=== PATIENT | male | born 1950 | race African-American/Black ===

== ENCOUNTER 2024-02-01 21:39 | Emergency (ER) | payer MEDICARE, SELFPAY ==
[2024-02-01 21:44] VITALS: BP 134/72; PULSE 81; RESP 15; TEMP 36.2; O2SAT 99
--- NOTE | 2024-02-01 22:48 | ED_ITS ---
HPI - General Adult General Chief complaint: Urogenital-Male Stated complaint: difficulty urinating Time Seen by Provider: 02/01/24 21:44 History of Present Illness HPI narrative: 73-year-old male presenting to the emergency department for evaluation for increased urinary frequency. Patient began having difficulty urinating on Saturday had follow-up with his primary care physician on and patient was started on Cipro. Patient states he took the doses on Saturday and Saturday b ut is still having frequent urinary urgency issues and patient states he is even having difficulty sleeping due to the symptoms. Related Data Home Medications ?Medication ?Instructions ?Recorded ?Confirmed ?Last Taken ?Type amlodipine 5 mg tablet (Norvasc) 5 mg PO DAILY 12/12/23 12/12/23 Unknown History aspirin 81 mg chewable tablet 81 mg PO DAILY 12/12/23 12/12/23 Unknown History ezetimibe 10 mg tablet (Zetia) 10 mg PO DAILY 12/12/23 12/12/23 Unknown History fluticasone propionate 50 1 spray intranasal DAILY 12/12/23 12/12/23 Unknown History mcg/actuation nasal spray,suspension (Flonase Allergy Relief) mecobalamin (vitamin B12) 5,000 mcg PO 12/12/23 12/12/23 Unknown History mcg disintegrating tablet metoprolol succinate 100 mg 100 mg PO BID 12/12/23 12/12/23 Unknown History tablet,extended release 24 hr (Toprol XL) multivitamin 1 tablet PO DAILY 12/12/23 12/12/23 Unknown History rosuvastatin 40 mg tablet (Crestor) 40 mg PO DAILY 12/12/23 12/12/23 Unknown History tamsulosin 0.4 mg capsule 0.4 mg PO BID 12/12/23 12/12/23 Unknown History Allergies Allergy/AdvReac Type Severity Reaction Status Date / Time No Known Allergies Allergy Unverified 12/12/23 08:56 Review of Systems Review of Systems: All systems reviewed & are unremarkable except as noted in HPI and below PMFSH Surgical History Surgical History (Updated 12/12/23 @ 09:09 by Isabel Houston CMA) Stented coronary artery Family History Family History (Updated 12/12/23 @ 09:10 by Isabel Houston CMA) Mother Heart disease Social History Social History (Updated 12/12/23 @ 09:11 by Isabel Houston [facility]) Smoking status: Former smoker Smoking end date: 02/11/07 Alcohol intake: current Substance use: never Substance use type: does not use Do You Feel Safe in your Home?: Yes Lack of Transportation: No Lack of Food: Never True Current Housing: I Have Housing Concerned About Future Housing: No Difficulty Paying Gas/Electric Bills: No Difficulty Paying for Meds: No Currently Unemployed: No Education: Trade/Vocational Certificate Difficulty w/ Childcare or Family Care: No Exam Narrative: APPEARANCE: Uncomfortable appearing HEAD: normocephalic, atraumatic. EYES: PERRLA/EOMI, conjunctivae clear. NOSE: Normal no drainage EARS:TMS clear with good light reflex. THROAT: Pharynx clear, no exudate. NECK: Supple. No adenopathy, no masses. RESPIRATORY: Airway patent, respirations nonlabored. Clear to auscultation bilaterally, no rales, rhonchi, wheezing. CARDIOVASCULAR: Regular rate and rhythm without murmurs rubs or gallops. ABDOMINAL: Soft, nontender, nondistended, normal bowel sounds MUSCULOSKELETAL: Moves all extremities. Strength/ROM intact, No edema, No calf tenderness. NEURO: Alert. Cranial nerves II through XII intact. Grossly intact SKIN: Warm, dry. Normal Color Course Vital Signs Vital signs: Vital Signs Temperature 97.1 F L 02/01/24 21:44 Pulse Rate 81 02/01/24 21:44 Respiratory Rate 15 02/01/24 21:44 Blood Pressure 134/72 02/01/24 21:44 Pulse Oximetry 99 02/01/24 21:44 Oxygen Delivery Room Air 02/01/24 21:44 Temperature 97.1 F L 02/01/24 21:44 Pulse Rate 81 02/01/24 21:44 Respiratory Rate 15 02/01/24 21:44 Blood Pressure 134/72 02/01/24 21:44 Pulse Oximetry 99 02/01/24 21:44 Oxygen Delivery Room Air 02/01/24 21:44 Medical Decision Making Vital Signs Vital Signs: Vital Signs Temperature 97.1 F L 02/01/24 21:44 Pulse Rate 81 02/01/24 21:44 Respiratory Rate 15 02/01/24 21:44 Blood Pressure 134/72 02/01/24 21:44 Pulse Oximetry 99 02/01/24 21:44 Oxygen Delivery Room Air 02/01/24 21:44 Temperature 97.1 F L 02/01/24 21:44 Pulse Rate 81 02/01/24 21:44 Respiratory Rate 15 02/01/24 21:44 Blood Pressure 134/72 02/01/24 21:44 Pulse Oximetry 99 02/01/24 21:44 Oxygen Delivery Room Air 02/01/24 21:44 Discharge Plan Discharge Clinical Impression: Acute urinary retention Patient Disposition: Home, Self-Care Condition: Stable Instructions: Antibiotic Form, Urinary Tract Infection in Men (ED), Conde Catheter Placement and Care (ED) Additional Instructions: For catheter care as directed. Continue to take your Cipro as directed. Continue to take your tamsulosin as directed. Have close follow-up with Urology to have the Conde catheter removed. If you have any worsening symptoms then please call or return to the emergency department. Patient Language: Khmer Prescriptions: No Action ezetimibe [Zetia] 10 mg tablet 10 mg PO DAILY rosuvastatin [Crestor] 40 mg tablet 40 mg PO DAILY metoprolol succinate [Toprol XL] 100 mg tablet extended release 24 hr 100 mg PO BID amlodipine [Norvasc] 5 mg tablet 5 mg PO DAILY aspirin 81 mg tablet,chewable 81 mg PO DAILY mecobalamin (vitamin B12) 5,000 mcg tablet,disintegrating PO fluticasone propionate [Flonase Allergy Relief] 50 mcg/actuation spray,suspension 1 spray intranasal DAILY Rx Instructions: administer into each nostril multivitamin Tablet 1 tablet PO DAILY tamsulosin 0.4 mg capsule 0.4 mg PO BID Follow-up/Referrals: UNKNOWN,DOCTOR [Primary Care Provider] -
[2024-02-01 23:47] LABS: Add Urine Microscopic? YES; Appearance Urine Clear (Clear); Bacteria Urine None Seen /hpf; Bilirubin Urine Negative (Negative); Blood Urine Negative (Negative); Color Urine Yellow (Yellow); Glucose Urine UA Negative (Negative); Ketones Urine Negative (Negative); Leukocyte Esterase Ur Trace LEU/UL (Negative); Nitrate Urine Negative (Negative); Non Pathogenic Casts 0-2; Protein Urine Negative (Negative); RBC Urine 0-2 /hpf (0-2); Specific Grav Ur 1.009 (1.001-1.035); Squamous Epithelial Cell Urine None Seen /hpf (Few)
[2024-02-02 00:27] VITALS: BP 134/72; PULSE 78; RESP 16; O2SAT 100
== END 2024-02-02 00:30 | disposition home or self-care (01) ==
PROVIDERS: Emergency Provider Emergency Medicine
DX: R33.9 Retention of urine, unspecified (principal); Z87.891 Personal history of nicotine dependence
CPT/HCPCS: 81001; 87086; 99283

== ENCOUNTER 2024-06-18 09:37 | Outpatient (CLI) | payer MEDICARE, SELFPAY ==
--- OUTSIDE RECORDS SUMMARY | 2024-06-18 09:54 | XMS_ITS | Encounter Summary ---
Author Organization [facility] Address 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 Gender Identity Not on file Sexual Orientation Not on file documented as of this encounter Plan of Treatment Upcoming Encounters Date Type Department Care Team (Late st Contact Info) Description 07/15/2024 9:45 AM CDT Office Visit [facility] Heart and Vascular At [facility] [address] [place] [address] Atif Stover MD [address] [place] [address] 06/15/2025 9:15 AM CDT Office Visit [facility] Hepatology [address] [place] [address] Al Ervin MD [address] [facility] [address] [address] [facility] [place] [address] documented as of this encounter Visit Diagnoses Not on filedocumented in this encounter Additional Health Concerns Infection Onset Date Last Indicated Resolved Time R/O COVID-19 12/24/2019 12/24/2019 12/26/2019 6:02 AM DYNAMITE PACKING MACHINE OPERATOR COVID-19 12/24/2019 12/24/2019 01/23/2020 1:16 AM DYNAMITE PACKING MACHINE OPERATOR documented as of this encounter Care Teams Labor Economist Relationship Specialty Start Date End Date Chandu Urbina MD PCP - General Family Practice 06/12/23 11/13/23 documented as of this encounter
--- OUTSIDE RECORDS SUMMARY | 2024-06-18 09:54 | XMS_ITS | Clinical Summary ---
Author Organization [facility] ital Address [address] [place] [address] Care Team Providers Care Pediatric Critical Care Nurse Name Role Phone Liam Rubin MD Primary Care Provider [phone] Allergies Active Allergy Reactions Criticality Noted Date Comments Venom-Honey Bee Anaphylaxis High 08/19/2017 Hymenoptera Allergenic Extract Anaphylaxis High 05/13 Medications metoprolol XL (TOPROL-XL) 50 mg 24 hr tabletIndicatio ns:Takes 1.5 of 50 mg daily Take 75 mg by mouth daily. Active clopidogrel (PLAVIX) 75 mg tablet Take 75 mg by mouth daily. Active rosuvastatin (CRESTOR) 40 mg tablet Take 40 mg by mouth daily. Active aspirin 81 mg tablet Take 81 mg by mouth daily. Active HYDROcodone-saul taminophen (NORCO) 7.5-325 mg per tabletIndicatio ns:Pain 1-2 tablets PO q4h PRN pain 60 tablet 8 Active Additional Information Patient not taking.Reported on 10/07/2017 Active Problems Problem Noted Date Diagnosed Date Olecranon bursitis of left elbow 09/09/2017 Tibial plateau fracture, lef t, closed, with delayed healing, subsequent encounter 08/12/2017 Closed Colles' fracture of left radius 8 Immunizations Immunization Administration Dates Next Due Pfizer SARS-CoV-2 Monovalent Vaccination (12+ Yrs) PURPLE 11/25/2020,04/25/2020,04/04/2020 Surgical History Surgery Date Site/Laterality Comments CORONARY STENT PLACEMENT CARDIAC CATHETERIZATION 02/11/2007 - 02/11/2008 Medical History Medical History Date Comments Coronary artery disease Arthritis Wrist fracture left Hyperlipidemia Family History Medical History Relation Name Comments No Known Problems Father Heart disease Mother Relation Name Status Comments Father Mother Social History Tobacco Use Types Packs/Day Years Used Date Smoking Tobacco: Former Smokeless Tobacco: Never Alcohol Use Standard Drinks/Week Comments Yes 0 (1 standard drink = 0.6 oz pur e alcohol) social Sex and Gender Information Value Date Recorded Sex Assigned at Not on file Legal Sex Male 8:37 PM CDT Gender Identity Not on file Sexual Orientation Not on file Occupation Industry Job Start Date Job End Date [employer] Not on file Not on file Not on file Obstetrics History Last Filed Vital Signs Vital Sign Reading Time Taken Comments Blood Pressure 125/72 08/26/2017 4:00 PM CDT Pulse 73 08/26/2017 4:00 PM CDT Temperature 36.5 C (97.7 F) 08/26/2017 3:05 PM CDT Respiratory Rate 12 08/26/2017 4:00 PM CDT Oxygen Saturation 98% 08/26/2017 4:00 PM CDT Inhaled Oxygen Concentration - - Weight 105.2 kg (232 lb) 12/02/2017 8:59 AM CDT Height 182.9 cm (6') 12/02/2017 8:59 AM CDT Body Mass Index 31.46 12/02/2017 8:59 AM CDT Plan of Treatment Health Maintenance Due Date Last Done Comments Colon Cancer Screening-Colonoscopy 1950 Depression Screening 1950 Fall Risk Assessment 1950 Hepatitis C Screening 1950 Prostate Cancer Screening-PSA 1950 DTaP/Tdap/Td Vaccine (1 - Tdap) 07/12/1962 Hepatitis B Screening 07/12/1969 Zoster Vaccine (1 of 2) 07/12/2001 Abdominal Aortic Aneurysm (A AA) Screen 07/12/2016 Well Visit 65+ 07/12/2016 Pneumococcal vaccine 65+ (2 of 2 - PCV) 12/01/2020 12/02/2019 Covid-19 Vaccine ( - season) 2023 11/25/2020, 04/25/2020, 04/04/2020 Influenza Vaccine (#1) 2023 11/26/2019, 2018 Medical Devices Implanted Type Area Electronic Coils Supervisor Device Identifier Shelf Expiration Date Model / Serial / Lot [employer] Orthoblast Ii Allograft Paste Syringe Graft 1cc Bone - [id number] - [id number] Implanted:Qty: 1 on 08/26/2017 by Ulysses Schuler MD at [facility] Left: Radius [employer] 05/09/2019 / [id number] / [id number] [employer] 1318-22-050 Dvr [id number] Crosslock Radius Left Distal Volar Standard Plate - [id number] Implanted:Qty: 1 on 08/26/2017 by Ulysses Schuler MD at [facility] Left: Radius [employer] 1318-22-050 / / [employer] [id number] Dvr 2.7mm 18mm Low Profile Nonlock Hand Cortical Screw Bone - [id number] Implanted:Qty: 2 on 08/26/2017 at [facility] Left: Radius [employer] [id number] / / [employer] 1312-27-120 Dvr 2.7mm 20mm Lock Spine Screw Bone Nonsterile - [id number] Implanted:Qty: 1 on 08/26/2017 by Ulysses Schuler MD at [facility] Left: Radius [employer] 1312-27-120 / / [employer] 1312-27-116 Dvr 2.7mm 16mm Lock Radius Distal Volar Square Screw Bone Sterile - [id number] Implanted:Qty: 1 on 08/26/2017 by Ulysses Schuler MD at [facility] Left: Radius [employer] 1312-27-116 / / Screw Lock [address] 2.7 X 26mm - [id number] Implanted:Qty: 2 on 08/26/2017 by Ulysses Schuler MD at [facility] Left: Radius [employer] 1312-27-126 / / [employer] 1312-272-16 2.7mm 16mm Nonlock Low Profile Radius Distal Screw Bone - [id number] Implanted:Qty: 1 on 08/26/2017 by Ulysses Schuler MD at [facility] Left: Radius [employer] 1312-272-16 / / [employer] [id number] [place] 1.6mm Wire Fixation Stainless Steel Nonsterile - [id number] Implanted:Qty: 2 on 08/26/2017 at [facility] Left: Radius [employer] [id number] / / Insurance [facility] MDCR HMO REF Care Teams Pediatric Critical Care Nurse Relationship Specialty Start Date End Date Liam Rubin MD [address] [facility] [address] [place] [phone] PCP - General 08/10/17
--- OUTSIDE RECORDS SUMMARY | 2024-06-18 09:54 | XMS_ITS | Encounter Summary ---
Author Organization [facility] Address [address] [place] [address] Care Team Providers Care Entry Level Lab Technician Name Role Phone Chandu Urbina MD Primary Care Provider Unavailab le Encounter Details Date Type Department Care Team (Late st Contact Info) Description 01/12/1998 Outpatient Historical [facility] Primary Care - [facility] [address] [place] [address] Aris Tobias MD [address] [place] [address] Social History Tobacco Use Types Packs/Day Years Used Date Smoking Tobacco: Never Assessed Sex and Gender Information Value Date Recorded Sex Assigned at Not on file 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 Gender Identity Not on file Sexual Orientation Not on file documented as of this encounter Plan of Treatment Upcoming Encounters Date Type Department Care Team (Late st Contact Info) Description 07/15/2024 9:45 AM CDT Office Visit [facility] Heart and Vascular At [facility] [address] [facility] [address] [place] [address] Atif Stover MD [address] [facility] [facility] [address] [place] [address] 06/15/2025 9:15 AM CDT Office Visit [facility] Hepatology [address] [place] [address] Al Ervin MD [address] [facility] [place] [address] documented as of this encounter Visit Diagnoses Not on filedocumented in this encounter Additional Health Concerns Infection Onset Date Last Indicated Resolved Time R/O COVID-19 12/24/2019 12/24/2019 12/26/2019 6:02 AM SHIP PURSER COVID-19 12/24/2019 12/24/2019 01/23/2020 1:16 AM SHIP PURSER documented as of this encounter Care Teams Entry Level Lab Technician Relationship Specialty Start Date End Date Chandu Urbina MD PCP - General Family Practice 06/12/23 11/13/23 documented as of this encounter
--- OUTSIDE RECORDS SUMMARY | 2024-06-18 09:54 | XMS_ITS | Encounter Summary ---
Author Organization [facility] Address 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 Gender Identity Not on file Sexual Orientation Not on file documented as of this encounter Plan of Treatment Upcoming Encounters Date Type Department Care Team (Late st Contact Info) Description 07/15/2024 9:45 AM CDT Office Visit [facility] Heart and Vascular At [facility] [address] [place] [address] Atif Stover MD [address] [place] [address] 06/15/2025 9:15 AM CDT Office Visit [facility] Hepatology [address] [facility] [address] [place] [address] lA Ervin MD [address] [facility] [address] [facility] [place] [address] documented as of this encounter Visit Diagnoses Not on filedocumented in this encounter Additional Health Concerns Infection Onset Date Last Indicated Resolved Time R/O COVID-19 12/24/2019 12/24/2019 12/26/2019 6:02 AM TEA AND SPICE SUPERVISOR COVID-19 12/24/2019 12/24/2019 01/23/2020 1:16 AM TEA AND SPICE SUPERVISOR documented as of this encounter Care Teams Php Consultant Relationship Specialty Start Date End Date Chandu Urbina MD PCP - General Family Practice 06/12/23 11/13/23 documented as of this encounter
--- OUTSIDE RECORDS SUMMARY | 2024-06-18 09:54 | XMS_ITS | Encounter Summary ---
Author Organization [facility] Address [address] [place] [address] Care Team Providers Care Internal Consultant Name Role Phone Chandu Urbina MD Primary Care Provider Unavailab le Encounter Details Date Type Department Care Team (Late st Contact Info) Description 05/10/2004 Outpatient Historical [facility] Primary Care - [address] [place] [address] Liam Rubin MD NO ADDRESS ON FILE Social History Tobacco Use Types Packs/Day Years Used Date Smoking Tobacco: Never Assessed Sex and Gender Information Value Date Recorded Sex Assigned at Not on file Legal Sex Male 2:38 AM RING PACKER Gender Identity Not on file Sexual Orientation Not on file documented as of this encounter Plan of Treatment Upcoming Encounters Date Type Department Care Team (Late st Contact Info) Description 07/15/2024 9:45 AM CDT Office Visit [facility] Heart and Vascular At [facility] [address] [address] [place] [address] Atif Stover MD [address] [address] [place] [address] 06/15/2025 9:15 AM CDT Office Visit [facility] Hepatology [address] [facility] [address] [facility] [place] [address] Al Ervin MD [address] [facility] [address] [facility] [place] [address] documented as of this encounter Visit Diagnoses Not on filedocumented in this encounter Additional Health Concerns Infection Onset Date Last Indicated Resolved Time R/O COVID-19 12/24/2019 12/24/2019 12/26/2019 6:02 AM RING PACKER COVID-19 12/24/2019 12/24/2019 01/23/2020 1:16 AM RING PACKER documented as of this encounter Care Teams Internal Consultant Relationship Specialty Start Date End Date Chandu Urbina MD PCP - General Family Practice 06/12/23 11/13/23 documented as of this encounter
--- OUTSIDE RECORDS SUMMARY | 2024-06-18 09:54 | XMS_ITS | Encounter Summary ---
Author Organization [facility] Address [address] [place] [address] Care Team Providers Care Hydroelectric Plant Electrical Engineer Name Role Phone Chandu Urbina MD Primary Care Provider Unavailab le Encounter Details Date Type Department Care Team (Late st Contact Info) Description 11/08/2004 Outpatient Historical [facility] Primary Care - [address] [place] [address] Liam Rubin MD NO ADDRESS ON FILE Social History Tobacco Use Types Packs/Day Years Used Date Smoking Tobacco: Never Assessed Sex and Gender Information Value Date Recorded Sex Assigned at Not on file Legal Sex Male 2:38 AM 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 PACKER Gender Identity Not on file Sexual Orientation Not on file documented as of this encounter Plan of Treatment Upcoming Encounters Date Type Department Care Team (Late st Contact Info) Description 07/15/2024 9:45 AM CDT Office Visit [facility] Heart and Vascular At [facility] [address] [place] [address] Atif Stover MD [address] [place] [address] 06/15/2025 9:15 AM CDT Office Visit [facility] Hepatology [address] [facility] [place] [address] Al Ervin MD [address] [facility] [address] [facility] [place] [address] documented as of this encounter Visit Diagnoses Not on filedocumented in this encounter Additional Health Concerns Infection Onset Date Last Indicated Resolved Time R/O COVID-19 12/24/2019 12/24/2019 12/26/2019 6:02 AM TOBACCO PACKER COVID-19 12/24/2019 12/24/2019 01/23/2020 1:16 AM TOBACCO PACKER documented as of this encounter Care Teams Hydroelectric Plant Electrical Engineer Relationship Specialty Start Date End Date Chandu Urbina MD PCP - General Family Practice 06/12/23 11/13/23 documented as of this encounter
--- OUTSIDE RECORDS SUMMARY | 2024-06-18 09:54 | XMS_ITS | Encounter Summary ---
Author Organization [facility] Address [address] [place] [address] Care Team Providers Care Knapsack Sprayer Name Role Phone Chandu Urbina MD Primary Care Provider Unavailab le Encounter Details Date Type Department Care Team (Late st Contact Info) Description 09/07/2002 Outpatient Historical [facility] Primary Care - [address] [place] [address] Liam Rubin MD NO ADDRESS ON FILE Social History Tobacco Use Types Packs/Day Years Used Date Smoking Tobacco: Never Assessed Sex and Gender Information Value Date Recorded Sex Assigned at Not on file Legal Sex Male 2:38 AM OFFLINE CUTTER Gender Identity Not on file Sexual Orientation Not on file documented as of this encounter Plan of Treatment Upcoming Encounters Date Type Department Care Team (Late st Contact Info) Description 07/15/2024 9:45 AM CDT Office Visit [facility] Heart and Vascular At [facility] [address] [place] [address] Atif Stover MD [address] [place] [address] 06/15/2025 9:15 AM CDT Office Visit [facility] Hepatology [address] [facility] [facility] [place] [address] Al Ervin MD [address] [facility] [facility] [address] [facility] [place] [address] documented as of this encounter Visit Diagnoses Not on filedocumented in this encounter Additional Health Concerns Infection Onset Date Last Indicated Resolved Time R/O COVID-19 12/24/2019 12/24/2019 12/26/2019 6:02 AM OFFLINE CUTTER COVID-19 12/24/2019 12/24/2019 01/23/2020 1:16 AM OFFLINE CUTTER documented as of this encounter Care Teams Knapsack Sprayer Relationship Specialty Start Date End Date Chandu Urbina MD PCP - General Family Practice 06/12/23 11/13/23 documented as of this encounter
--- OUTSIDE RECORDS SUMMARY | 2024-06-18 09:54 | XMS_ITS | Encounter Summary ---
Author Organization [facility] Address [address] [place] [address] Care Team Providers Care Electrophysiology Tech Name Role Phone Chandu Urbina MD Primary Care Provider Unavailab le Encounter Details Date Type Department Care Team (Late st Contact Info) Description 01/26/2002 Outpatient Historical [facility] Primary Care - [facility] [address] [place] [address] Aris Tobias MD [address] [place] [address] Social History Tobacco Use Types Packs/Day Years Used Date Smoking Tobacco: Never Assessed Sex and Gender Information Value Date Recorded Sex Assigned at Not on file Legal Sex Male 2:38 AM REPORTING CONSULTANT Gender Identity Not on file Sexual Orientation Not on file documented as of this encounter Plan of Treatment Upcoming Encounters Date Type Department Care Team (Late st Contact Info) Description 07/15/2024 9:45 AM CDT Office Visit [facility] Heart and Vascular At [facility] [address] [place] [address] Atif Stover MD [address] [place] [address] 06/15/2025 9:15 AM CDT Office Visit [facility] Hepatology [address] [place] [address] Al Ervin MD [address] [facility] [place] [address] documented as of this encounter Visit Diagnoses Not on filedocumented in this encounter Additional Health Concerns Infection Onset Date Last Indicated Resolved Time R/O COVID-19 12/24/2019 12/24/2019 12/26/2019 6:02 AM REPORTING CONSULTANT COVID-19 12/24/2019 12/24/2019 01/23/2020 1:16 AM REPORTING CONSULTANT documented as of this encounter Care Teams Electrophysiology Tech Relationship Specialty Start Date End Date Chandu Urbina MD PCP - General Family Practice 06/12/23 11/13/23 documented as of this encounter
--- OUTSIDE RECORDS SUMMARY | 2024-06-18 09:54 | XMS_ITS | Referral Summary ---
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 Not on file Not on file Last Filed Vital Signs Vital Sign Reading [...] 12/02/2017 8:59 AM CDT Plan of Treatment Not on file Medical Devices Implanted Type Area Teacher Early Childhood Development Device Identifier Shelf Expiration Date Model / Serial / Lot [employer] Orthoblast Ii Allograft Paste Syringe Graft 1cc Bone - [id number] - [id number] Implanted:Qty: 1 on 08/26/2017 by Ulysses Schuler MD at [facility] Left: Radius [employer] 05/09/2019 / [id number] / [id number] [employer] 1318-050 Dvr [id number] Crosslock Radius Left Distal Volar Standard Plate - [id number] Implanted:Qty: 1 on 08/26/2017 by Ulysses Schuler MD at [facility] Left: Radius [employer] 1318-050 / / [employer] [id number] Dvr 2.7mm 18mm Low Profile Nonlock Hand Cortical Screw Bone - [id number] Implanted:Qty: 2 on 08/26/2017 at [facility] Left: Radius [employer] [id number] / / [employer] [id number] Dvr 2.7mm 20mm Lock Spine Screw Bone Nonsterile - [id number] Implanted:Qty: 1 on 08/26/2017 by Ulysses Schuler MD at [facility] Left: Radius [employer] 1312-120 / / [employer] [id number] Dvr 2.7mm 16mm Lock Radius Distal Volar Square Screw Bone Sterile - [id number] Implanted:Qty: 1 on 08/26/2017 by Ulysses Schuler MD at [facility] Left: Radius [employer] 13104-09-116 / / Screw Lock [address] 2.7 X 26mm - [id number] Implanted:Qty: 2 on 08/26/2017 by Ulysses Schuler MD at [facility] Left: Radius [employer] 1312-27-126 / / [employer] 1312-272-16 2.7mm 16mm Nonlock Low Profile Radius Distal Screw Bone - [id number] Implanted:Qty: 1 on 08/26/2017 by Ulysses Schuler MD at [facility] Left: Radius [employer] 1312-272-16 / / [employer] [id number] [place] 1.6mm Wire Fixation Stainless Steel Nonsterile - [id number] Implanted:Qty: 2 on 08/26/2017 at [facility] Left: Radius [employer] [id number] / / Insurance [facility] MDCR HMO [facility] MEDICARE Address: [address] [address] Care Teams Station Air Traffic Control Specialist Relationship Specialty Start Date End Date Liam Rubin MD [address] [facility] [address] [place] [address] PCP - General 08/10/17
--- OUTSIDE RECORDS SUMMARY | 2024-06-18 09:55 | XMS_ITS | Encounter Summary ---
Author Organization [facility] Address [address] [place] [address] Care Team Providers Care Vegetable Vendor Name Role Phone Chandu Urbina MD Primary Care Provider Unavailab le Encounter Details Date Type Department Care Team (Late st Contact Info) Description 05/09/2007 Outpatient Historical [facility] Primary Care - [address] [place] [address] Liam Rubin MD NO ADDRESS ON FILE Social History Tobacco Use Types Packs/Day Years Used Date Smoking Tobacco: Never Assessed Sex and Gender Information Value Date Recorded Sex Assigned at Not on file Legal Sex Male 2:38 AM CART ATTENDANT Gender Identity Not on file Sexual Orientation Not on file documented as of this encounter Plan of Treatment Upcoming Encounters Date Type Department Care Team (Late st Contact Info) Description 07/15/2024 9:45 AM CDT Office Visit [facility] Heart and Vascular At [facility] [address] [place] [address] Atif Stover MD [address] [facility] [address] [place] [address] 06/15/2025 9:15 AM CDT Office Visit [facility] Hepatology [address] [place] [address] Al Ervin MD [address] [facility] [place] [address] documented as of this encounter Visit Diagnoses Not on filedocumented in this encounter Additional Health Concerns Infection Onset Date Last Indicated Resolved Time R/O COVID-19 12/24/2019 12/24/2019 12/26/2019 6:02 AM CART ATTENDANT COVID-19 12/24/2019 12/24/2019 01/23/2020 1:16 AM CART ATTENDANT documented as of this encounter Care Teams Vegetable Vendor Relationship Specialty Start Date End Date Chandu Urbina MD PCP - General Family Practice 06/12/23 11/13/23 documented as of this encounter
--- OUTSIDE RECORDS SUMMARY | 2024-06-18 09:55 | XMS_ITS | Encounter Summary ---
Author Organization [facility] Address [address] [place] [address] Care Team Providers Care Scarrer Name Role Phone Chandu Urbina MD Primary Care Provider Kimberly olivier Encounter Details Date Type Department Care Team (Latest Contact Info) Description 08/02/2007 Outpatient Historical [facility] Jose Angel Bueno MD NO ADDRESS ON FILE Cor Athrscl-Uns Vessel; Other Chest Pain Social History Tobacco Use Types Packs/Day Years Used Date Smoking Tobacco: Never Alcohol Use Standard Drinks/Week Comments Yes 0 (1 standard drink = 0.6 oz pur e alcohol) Sex and Gender Information Value Date Recorded Sex Assigned at Not on file Legal Sex Male 2:38 AM MANIFEST CLERK Gender Identity Not on file Sexual Orientation Not on file documented as of this encounter Plan of Treatment Upcoming Encounters Date Type Department Care Team (Late st Contact Info) Description 07/15/2024 9:45 AM CDT Office Visit [facility] Heart and Vascular At [facility] [address] [place] [address] Atif Stover MD [address] [place] [address] 06/15/2025 9:15 AM CDT Office Visit [facility] Hepatology [address] [place] [address] Al Ervin MD [address] [facility] [place] [address] documented as of this encounter Visit Diagnoses Diagnosis Coronary atherosclerosis of unspecified type of vessel, ruby or graft Other chest pain documented in this encounter Additional Health Concerns Infection Onset Date Last Indicated Resolved Time R/O COVID-19 12/24/2019 12/24/2019 12/26/2019 6:02 AM MANIFEST CLERK COVID-19 12/24/2019 12/24/2019 01/23/2020 1:16 AM MANIFEST CLERK documented as of this encounter Care Teams Scarrer Relationship Specialty Start Date End Date Chandu Urbina MD PCP - General Family Practice 06/12/23 11/13/23 documented as of this encounter
--- OUTSIDE RECORDS SUMMARY | 2024-06-18 09:55 | XMS_ITS | Encounter Summary ---
Author Organization [facility] Address [address] [place] [address] Care Team Providers Care Centrifugal Extractor Operator Name Role Phone Chandu Urbina MD Primary Care Provider Unavailab le Encounter Details Date Type Department Care Team (Late st Contact Info) Description 05/09/2007 Orders Only [facility] Primary Care - [address] [place] [address] Liam Rubin MD NO ADDRESS ON FILE Social History Tobacco Use Types Packs/Day Years Used Date Smoking Tobacco: Never Assessed Sex and Gender Information Value Date Recorded Sex Assigned at Not on file Legal Sex Male 2:38 AM SENIOR APPLICATION PROGRAMMER Gender Identity Not on file Sexual Orientation Not on file documented as of this encounter Progress Notes * Liam Rubin MD - 07/17/2007 8:03 PM CDT TEMPERATURE: 98.8??f Oral BLOOD PRESSURE: 140/80 Right Arm Sitting WEIGHT: [id number] NURSE NAME: Regina Duarte K ALLERGIES: No known drug allergies. MEDICATIONS: Medication list current. CHIEF COMPLAINT Here for follow up evaluation. HISTORY: HISTORY: 272.4-HYPERLIPIDEMIA The patient has gained weight. The patient is compliant with the low saturatedfat diet. The patient`s exercise has increased. The patient is tolerating the medications. 305.1-TOBACCO ABUSE The patient stopped using tobacco products. The patient has been using tobacco for more than 20 years. None since January. ROS: GENERAL: Normal activity and energy level, no change in appetite. No major weight gain or loss. No malaise, chills, fever, diaphoresis.. ENT: No hearing loss, epistaxis, hoarseness or dysphagia. No sinus congestion.. ENDOCRINE: No heat or cold intolerance, no excessive thirst.. CARDIAC: No chest pain, palpitations, orthopnea, dyspnea on exertion, or paroxysmal nocturnal dyspnea.. RESPIRATORY: No dyspnea, cough, hemoptysis or wheezing.. : No dysuria or hematuria.. GI: No abdominal pain, nausea, vomiting, diarrhea, constipation, melena, or hematochezia.. PHYSICAL EXAMINATION: CONSTITUTIONAL: GENERAL APPEARANCE: Healthy appearing patient in no distress. NECK/THYROID: Trachea midline. No thyroid enlargement, tenderness, or mass. No supraclavicular or cervical adenopathy. RESPIRATORY: Clear to auscultation and percussion. Normal respiratory effort. CARDIOVASCULAR: CARDIAC: Regular rhythm. No murmurs, rubs, or gallops. ARTERIAL: No aortic bruits. EDEMA/VARICOSITIES OF EXTREMITIES: No edema or varicosities. GASTROINTESTINAL: ABDOMEN: Soft, non-tender, without masses. Bowel sounds active. LIVER/SPLEEN/KIDNEY: No hepatosplenomegaly, tenderness or nodularity. Kidneys not palpable. GENITOURINARY: PROSTATE: 2+ ENLARGED. MUSCULOSKELETAL EXAM: EXTREMITIES: PE/MS/BILAT UPPER EXT No misalignment or tenderness. Full range of motion. Normal stability, strength and tone. BILATERAL LOWER EXTREMITIES: No misalignment or tenderness. Full range of motion. Normal stability,strength and tone. SKIN: SKIN: Warm, dry, no diaphoresis, no significant lesions, irritation, rashes or ulcers. No induration, obvious subcutaneous nodules or tightening. NEUROLOGIC: CRANIAL NERVES: analyst geochemical prospecting II-XII grossly intact. DEEP TENDON REFLEXES: Deep tendon reflexes 2+/4 and symmetrical. ASSESSMENT/PLAN: 272.4-HYPERLIPIDEMIA ASSESSMENT: Will not change medication, continue to monitor for complications. Weight loss was encouraged. LAB ORDERS: Order number: [id number] Test Ordered: LIPID PANEL 1078 Order number: [id number] Test Ordered: ALT 1294 305.1-TOBACCO ABUSE ASSESSMENT: The patient continues to refrain from smoking and was strongly advised to continue to refrain from all tobacco products. V76.44-SCREEN FOR CA OF PROSTATE LAB ORDERS: Order number: [id number] Test Ordered: PSA, TOTAL 1002 600.00-BPH W/O OBSTRUCTION Limited symptoms do not require intervention at this timel LAB ORDERS: Order number: [id number] Test Ordered: CREATININE 1790 PREVENTIVE COUNSELING The patient was counseled. Electronically Signed by: Liam Rubin MD on May documented in this encounter Plan of Treatment Upcoming Encounters Date Type Department Care Team (Late st Contact Info) Description 07/15/2024 9:45 AM CDT Office Visit [facility] Heart and Vascular At [facility] [address] [place] [address] Atif Stover MD [address] [facility] [place] [address] 06/15/2025 9:15 AM CDT Office Visit [facility] Hepatology [address] [place] [address] Al Ervin MD [address] [facility] [place] [address] documented as of this encounter Visit Diagnoses Not on filedocumented in this encounter Additional Health Concerns Infection Onset Date Last Indicated Resolved Time R/O COVID-19 12/24/2019 12/24/2019 12/26/2019 6:02 AM SENIOR APPLICATION PROGRAMMER COVID-19 12/24/2019 12/24/2019 01/23/2020 1:16 AM SENIOR APPLICATION PROGRAMMER documented as of this encounter Care Teams Centrifugal Extractor Operator Relationship Specialty Start Date End Date Chandu Urbina MD PCP - General Family Practice 06/12/23 11/13/23 documented as of this encounter
--- OUTSIDE RECORDS SUMMARY | 2024-06-18 09:55 | XMS_ITS | Encounter Summary ---
Author Organization [facility] Address [address] [place] [address] Care Team Providers Care Unix Systems Administrator Name Role Phone Chandu Urbina MD Primary Care Provider Unavailab le Encounter Details Date Type Department Care Team (Late st Contact Info) Description 06/05/2007 Outpatient Historical [facility] Primary Care - [address] [place] [address] Liam Rubin MD NO ADDRESS ON FILE Social History Tobacco Use Types Packs/Day Years Used Date Smoking Tobacco: Never Assessed Sex and Gender Information Value Date Recorded Sex Assigned at Not on file Legal Sex Male 2:38 AM GLORY HOLE TENDER Gender Identity Not on file Sexual Orientation Not on file documented as of this encounter Plan of Treatment Upcoming Encounters Date Type Department Care Team (Late st Contact Info) Description 07/15/2024 9:45 AM CDT Office Visit [facility] Heart and Vascular At [facility] [address] [place] [address] Atif Stover MD [address] [place] [address] 06/15/2025 9:15 AM CDT Office Visit [facility] Hepatology [address] [place] [address] Al Ervin MD [address] [facility] [facility] [address] [facility] [place] [address] documented as of this encounter Visit Diagnoses Not on filedocumented in this encounter Additional Health Concerns Infection Onset Date Last Indicated Resolved Time R/O COVID-19 12/24/2019 12/24/2019 12/26/2019 6:02 AM GLORY HOLE TENDER COVID-19 12/24/2019 12/24/2019 01/23/2020 1:16 AM GLORY HOLE TENDER documented as of this encounter Care Teams Unix Systems Administrator Relationship Specialty Start Date End Date Chandu Urbina MD PCP - General Family Practice 06/12/23 11/13/23 documented as of this encounter
--- OUTSIDE RECORDS SUMMARY | 2024-06-18 09:55 | XMS_ITS | Encounter Summary ---
Author Organization [facility] Address [address] [place] [address] Care Team Providers Care Trestle Builder Name Role Phone Chandu Urbina MD Primary Care Provider Unavailab le Encounter Details Date Type Department Care Team (Late st Contact Info) Description 06/12/2001 Outpatient Historical [facility] Primary Care - [facility] [address] [place] [address] Aris Tobias MD [address] [facility] [address] [address] [place] [address] Social History Tobacco Use Types Packs/Day Years Used Date Smoking Tobacco: Never Assessed Sex and Gender Information Value Date Recorded Sex Assigned at Not on file Legal Sex Male 2:38 AM SENIOR ACCOUNTS PAYABLE CLERK Gender Identity Not on file Sexual Orientation Not on file documented as of this encounter Plan of Treatment Upcoming Encounters Date Type Department Care Team (Late st Contact Info) Description 07/15/2024 9:45 AM CDT Office Visit [facility] Heart and Vascular At [facility] [address] [place] [address] Atif Stover MD [address] [facility] [address] [place] [address] 06/15/2025 9:15 AM CDT Office Visit [facility] Hepatology [address] [place] [address] Al Ervin MD [address] [facility] [place] [address] documented as of this encounter Visit Diagnoses Not on filedocumented in this encounter Additional Health Concerns Infection Onset Date Last Indicated Resolved Time R/O COVID-19 12/24/2019 12/24/2019 12/26/2019 6:02 AM SENIOR ACCOUNTS PAYABLE CLERK COVID-19 12/24/2019 12/24/2019 01/23/2020 1:16 AM SENIOR ACCOUNTS PAYABLE CLERK documented as of this encounter Care Teams Trestle Builder Relationship Specialty Start Date End Date Chandu Urbina MD PCP - General Family Practice 06/12/23 11/13/23 documented as of this encounter
--- OUTSIDE RECORDS SUMMARY | 2024-06-18 09:55 | XMS_ITS | Encounter Summary ---
Author Organization [facility] Address [address] [place] [address] Care Team Providers Care Paper Cup Machine Tender Name Role Phone Chandu Urbina MD Primary Care Provider Unavailab le Encounter Details Date Type Department Care Team (Late st Contact Info) Description 06/15/1999 Outpatient Historical [facility] Primary Care - [facility] [address] [place] [address] Aris Tobias MD [address] [facility] [address] [place] [address] Social History Tobacco Use Types Packs/Day Years Used Date Smoking Tobacco: Never Assessed Sex and Gender Information Value Date Recorded Sex Assigned at Not on file Legal Sex Male 2:38 AM AGRICULTURAL PRODUCE WASHER Gender Identity Not on file Sexual Orientation Not on file documented as of this encounter Plan of Treatment Upcoming Encounters Date Type Department Care Team (Late st Contact Info) Description 07/15/2024 9:45 AM CDT Office Visit [facility] Heart and Vascular At [facility] [address] [facility] [address] [place] [address] Atif Stover MD [address] [facility] [address] [place] [address] 06/15/2025 9:15 AM CDT Office Visit [facility] Hepatology [address] [place] [address] Al Ervin MD [address] [facility] [place] [address] documented as of this encounter Visit Diagnoses Not on filedocumented in this encounter Additional Health Concerns Infection Onset Date Last Indicated Resolved Time R/O COVID-19 12/24/2019 12/24/2019 12/26/2019 6:02 AM AGRICULTURAL PRODUCE WASHER COVID-19 12/24/2019 12/24/2019 01/23/2020 1:16 AM AGRICULTURAL PRODUCE WASHER documented as of this encounter Care Teams Paper Cup Machine Tender Relationship Specialty Start Date End Date Chandu Urbina MD PCP - General Family Practice 06/12/23 11/13/23 documented as of this encounter
--- OUTSIDE RECORDS SUMMARY | 2024-06-18 09:55 | XMS_ITS | Encounter Summary ---
Author Organization [facility] Address [address] [place] [address] Care Team Providers Care Lead Application Architect Name Role Phone Chandu Urbina MD Primary Care Provider Kimberly le Encounter Details Date Type Department Care Team (Latest Contact Info) Description 12/20/2007 Outpatient Historical [facility] [place] Liam Rubin MD NO ADDRESS ON FILE Pain in Joint, Lower Leg Social History Tobacco Use Types Packs/Day Years Used Date Smoking Tobacco: Never Alcohol Use Standard Drinks/Week Comments Yes 0 (1 standard drink = 0.6 oz pur e alcohol) Sex and Gender Information Value Date Recorded Sex Assigned at Not on file Legal Sex Male 2:38 AM GRAINING MACHINE OPERATOR Gender Identity Not on file Sexual Orientation Not on file documented as of this encounter Plan of Treatment Upcoming Encounters Date Type Department Care Team (Late st Contact Info) Description 07/15/2024 9:45 AM CDT Office Visit [facility] Heart and Vascular At [facility] [address] [place] [address] Atif Stover MD [address] [place] [address] 06/15/2025 9:15 AM CDT Office Visit [facility] Hepatology [address] [place] [address] Al Ervin MD [address] [facility] [address] [facility] [place] [address] documented as of this encounter Visit Diagnoses Diagnosis Pain in joint, lower leg documented in this encounter Additional Health Concerns Infection Onset Date Last Indicated Resolved Time R/O COVID-19 12/24/2019 12/24/2019 12/26/2019 6:02 AM GRAINING MACHINE OPERATOR COVID-19 12/24/2019 12/24/2019 01/23/2020 1:16 AM GRAINING MACHINE OPERATOR documented as of this encounter Care Teams Lead Application Architect Relationship Specialty Start Date End Date Chandu Urbina MD PCP - General Family Practice 06/12/23 11/13/23 documented as of this encounter
--- OUTSIDE RECORDS SUMMARY | 2024-06-18 09:55 | XMS_ITS | Encounter Summary ---
Author Organization [facility] Address [address] [place] [address] Care Team Providers Care Set Up And Charger Name Role Phone Chandu Urbina MD Primary Care Provider Unavailab le Encounter Details Date Type Department Care Team (Late st Contact Info) Description 05/08/2001 Outpatient Historical [facility] Primary Care - [address] [place] [address] Franco Sandra Social History Tobacco Use Types Packs/Day Years Used Date Smoking Tobacco: Never Assessed Sex and Gender Information Value Date Recorded Sex Assigned at Not on file Legal Sex Male 2:38 AM ENTOMOLOGY TEACHER Gender Identity Not on file Sexual Orientation Not on file documented as of this encounter Plan of Treatment Upcoming Encounters Date Type Department Care Team (Late st Contact Info) Description 07/15/2024 9:45 AM CDT Office Visit [facility] At [facility] [address] [place] [address] Atif Stover MD [address] [place] [address] 06/15/2025 9:15 AM CDT Office Visit [facility] [address] [place] [address] Al Ervin MD [address] [facility] [place] [address] documented as of this encounter Visit Diagnoses Not on filedocumented in this encounter Additional Health Concerns Infection Onset Date Last Indicated Resolved Time R/O COVID-19 12/24/2019 12/24/2019 12/26/2019 6:02 AM ENTOMOLOGY TEACHER COVID-19 12/24/2019 12/24/2019 01/23/2020 1:16 AM ENTOMOLOGY TEACHER documented as of this encounter Care Teams Set Up And Charger Relationship Specialty Start Date End Date Chandu Urbina MD PCP - General Family Practice 06/12/23 11/13/23 documented as of this encounter
--- OUTSIDE RECORDS SUMMARY | 2024-06-18 09:55 | XMS_ITS | Encounter Summary ---
Author Organization [facility] Address [address] [place] [address] Care Team Providers Care Sweatband Drummer Name Role Phone Chandu Urbina MD Primary Care Provider Unavail le Encounter Details Date Type Department Care Team (Latest Contact Info) Description 05/07/2008 Outpatient Historical [facility], [address] Liam Rubin MD NO ADDRESS ON FILE Cor Athrscl-Uns Vessel Social History Tobacco Use Types Packs/Day Years Used Date Smoking Tobacco: Never Alcohol Use Standard Drinks/Week Comments Yes 0 (1 standard drink = 0.6 oz pur e alcohol) Sex and Gender Information Value Date Recorded Sex Assigned at Not on file Legal Sex Male 2:38 AM MEDICAL TECHNOLOGIST GENERALIST Gender Identity Not on file Sexual Orientation Not on file documented as of this encounter Plan of Treatment Upcoming Encounters Date Type Department Care Team (Late st Contact Info) Description 07/15/2024 9:45 AM CDT Office Visit [facility] At [facility] [address] [place] [address] Atif Stover MD [address] [place] [address] 06/15/2025 9:15 AM CDT Office Visit [facility] Hepatology [address] [place] [address] Al Ervin MD [address] [facility] [address] [facility] [place] [address] documented as of this encounter Visit Diagnoses Diagnosis Coronary atherosclerosis of unspecified type of vessel, [place] or graft documented in this encounter Additional Health Concerns Infection Onset Date Last Indicated Resolved Time R/O COVID-19 12/24/2019 12/24/2019 12/26/2019 6:02 AM MEDICAL TECHNOLOGIST GENERALIST COVID-19 12/24/2019 12/24/2019 01/23/2020 1:16 AM MEDICAL TECHNOLOGIST GENERALIST documented as of this encounter Care Teams Sweatband Drummer Relationship Specialty Start Date End Date Chandu Urbina MD PCP - General Family Practice 06/12/23 11/13/23 documented as of this encounter
--- OUTSIDE RECORDS SUMMARY | 2024-06-18 09:55 | XMS_ITS | Encounter Summary ---
Author Organization [facility] Address [address] [place] [address] Care Team Providers Care Industrial Security Analyst Name Role Phone Chandu Urbina MD Primary Care Provider Unavailab le Encounter Details Date Type Department Care Team (Late st Contact Info) Description 12/01/1998 Outpatient Historical [facility] Primary Care - [facility] [address] [place] [address] Aris Tobias MD [address] [place] [address] Social History Tobacco Use Types Packs/Day Years Used Date Smoking Tobacco: Never Assessed Sex and Gender Information Value Date Recorded Sex Assigned at Not on file Legal Sex Male 2:38 AM VIDEO SURVEILLANCE TECHNICIAN Gender Identity Not on file Sexual Orientation Not on file documented as of this encounter Plan of Treatment Upcoming Encounters Date Type Department Care Team (Late st Contact Info) Description 07/15/2024 9:45 AM CDT Office Visit [facility] Heart and Vascular At [facility] [address] [place] [address] Atif Stover MD [address] [place] [address] 06/15/2025 9:15 AM CDT Office Visit [facility] Hepatology [address] [place] [address] Al Ervin MD [address] [facility] [place] [address] documented as of this encounter Visit Diagnoses Not on filedocumented in this encounter Additional Health Concerns Infection Onset Date Last Indicated Resolved Time R/O COVID-19 12/24/2019 12/24/2019 12/26/2019 6:02 AM VIDEO SURVEILLANCE TECHNICIAN COVID-19 12/24/2019 12/24/2019 01/23/2020 1:16 AM VIDEO SURVEILLANCE TECHNICIAN documented as of this encounter Care Teams Industrial Security Analyst Relationship Specialty Start Date End Date Chandu Urbina MD PCP - General Family Practice 06/12/23 11/13/23 documented as of this encounter
--- OUTSIDE RECORDS SUMMARY | 2024-06-18 09:55 | XMS_ITS | Encounter Summary ---
Author Organization [facility] Address [address] [place] [address] Care Team Providers Care Program Therapist Name Role Phone Chandu Urbina MD Primary Care Provider Unavailab le Encounter Details Date Type Department Care Team (Late st Contact Info) Description 08/27/2001 Outpatient Historical [facility] Jaguar Pacheco MD [address] [place] [address] [address] [place] [address] SCREENING MAL NEOP-COLON (Primary Dx) Social History Tobacco Use Types Packs/Day Years Used Date Smoking Tobacco: Never Assessed Sex and Gender Information Value Date Recorded Sex Assigned at Not on file Legal Sex Male 2:38 AM PEDIATRIC DENTAL HYGIENIST Gender Identity Not on file Sexual Orientation Not on file documented as of this encounter Plan of Treatment Upcoming Encounters Date Type Department Care Team (Late Contact Info) Description 07/15/2024 9:45 AM CDT Office Visit [facility] Heart and V[facility] At [facility] [address] [place] [address] Atif Stover MD [address] [place] [address] 06/15/2025 9:15 AM CDT Office Visit [facility] Hepatology [address] [place] [address] Al Ervin MD [address] [facility] [address] documented as of this encounter Visit Diagnoses Diagnosis Special screening for malignant neoplasms, colon- Primary documented in this encounter Additional Health Concerns Infection Onset Date Last Indicated Resolved Time R/O COVID-19 12/24/2019 12/24/2019 12/26/2019 6:02 AM PEDIATRIC DENTAL HYGIENIST COVID-19 12/24/2019 12/24/2019 01/23/2020 1:16 AM PEDIATRIC DENTAL HYGIENIST documented as of this encounter Care Teams Program Therapist Relationship Specialty Start Date End Date Chandu Urbina MD PCP - General Family Practice 06/12/23 11/13/23 documented as of this encounter
--- OUTSIDE RECORDS SUMMARY | 2024-06-18 09:55 | XMS_ITS | Encounter Summary ---
Author Organization [facility] Address [address] [place] [address] Care Team Providers Care Marine Service Station Attendant Name Role Phone Chandu Urbina MD Primary Care Provider Unavailab le Encounter Details Date Type Department Care Team (Late st Contact Info) Description 11/08/2004 Outpatient Historical [facility] Primary Care - [address] [place] [address] Liam Rubin MD NO ADDRESS ON FILE Social History Tobacco Use Types Packs/Day Years Used Date Smoking Tobacco: Never Assessed Sex and Gender Information Value Date Recorded Sex Assigned at Not on file Legal Sex Male 2:38 AM SHRIMP PICKER Gender Identity Not on file Sexual Orientation Not on file documented as of this encounter Plan of Treatment Upcoming Encounters Date Type Department Care Team (Late st Contact Info) Description 07/15/2024 9:45 AM CDT Office Visit [facility] [address] [place] [address] Atif Stover MD [address] [place] [address] 06/15/2025 9:15 AM CDT Office Visit [facility] Hepatology [address] [place] [address] Al Ervin MD [address] [facility] [address] [facility] [place] [address] documented as of this encounter Visit Diagnoses Not on filedocumented in this encounter Additional Health Concerns Infection Onset Date Last Indicated Resolved Time R/O COVID-19 12/24/2019 12/24/2019 12/26/2019 6:02 AM SHRIMP PICKER COVID-19 12/24/2019 12/24/2019 01/23/2020 1:16 AM SHRIMP PICKER documented as of this encounter Care Teams Marine Service Station Attendant Relationship Specialty Start Date End Date Chandu Urbina MD PCP - General Family Practice 06/12/23 11/13/23 documented as of this encounter
--- OUTSIDE RECORDS SUMMARY | 2024-06-18 09:55 | XMS_ITS | Encounter Summary ---
Author Organization [facility] Address [address] [place] [address] Care Team Providers Care Ferryboat Captain Name Role Phone Chandu Urbina MD Primary Care Provider Unavail le Encounter Details Date Type Department Care Team (Latest Contact Info) Description 06/10/2007 Outpatient Historical [facility] Jose Angel Bueno MD NO ADDRESS ON FILE Nonspecific Abnormal Electrocardiogram (ECG) (EKG) Social History Tobacco Use Types Packs/Day Years Used Date Smoking Tobacco: Never Assessed Sex and Gender Information Value Date Recorded Sex Assigned at Not on file Legal Sex Male 2:38 AM MANAGER LIFE Gender Identity Not on file Sexual Orientation Not on file documented as of this encounter Plan of Treatment Upcoming Encounters Date Type Department Care Team (Late st Contact Info) Description 07/15/2024 9:45 AM CDT [facility] At [facility] [address] [place] [address] Atif Stover MD [address] [facility] [place] [address] 06/15/2025 9:15 AM CDT [facility] Hep[facility] [address] [place] [address] Al Ervin MD [address] [facility] [place] [address] documented as of this encounter Procedures Procedure Name Priority Date/Time Associated Diagnosis Comments CBC WITH DIFFERENTIAL Routine 06/10/2007 2:04 PM CDT PROTIME-INR Routine 06/10/2007 2:04 PM CDT BASIC METABOLIC PANEL Routine 06/10/2007 2:04 PM CDT documented in this encounter Results * PROTIME-INR (06/10/2007 2:04 PM CDT) PROTIME 14.1 12.7 - 15.1 Seconds [facility] INR 1.1 0.9 - 1.1 [facility] Comment: INR Therapeutic Range: Adult: 2.0 - 3.0 for pulmonary embolism or prophylaxis against venous thrombosis or systemic embolization. 2.0 - 3.0 for patients with tissue heart valves. 2.5 - 3.5 for patients with mechanical heart valves or post MN. Pediatric (12 years and under): 1.5 - 3.0 Although the target range in children is not well established, INR values of 1.5 - 3.0 are recommended for most patients. Higher values have been used in children with prosthetic cardiac valves and hereditary clotting disorders. (<3 days) therapeutic ranges have not been established. Blood specimen (specimen) 06/10/2007 2:04 PM CDT 06/10/2007 5:42 PM CDT Jose Angel Bueno MD HEMATOLOGY ORDERABLES Final Resu lt [facility] [address] [address] [place], [place] [address] * (ABNORMAL) CBC WITH DIFFERENTIAL (06/10/2007 2:04 PM CDT) MCV 91.2 82.0 - 99.0 fL [facility] PLATELETS 328 140 - 350 K/uL [facility] HEMOGLOBIN 13.6 13.6 - 16.5 g/dL [facility] RDW 15.5(H) 11.5 - 14.5 % [facility] WBC 6.7 4.0 - 9.8 K/uL [facility] MCH 30.0 27.2 - 32.6 pg [facility] MPV 11.5 9.3 - 12.4 fL [facility] HEMATOCRIT 41.3 40.0 - 48.0 % [facility] RDW-STDEV 51.3(H) 37.1 - 48.7 fL [facility] RBC 4.53 4.50 - 5.40 M/uL [facility] MCHC 32.9 31.5 - 35.5 % [facility] EOSINOPHILS 1 0 - 7 % [facility] EOSINOPHIL ABSOLUTE 0.05 0.00 - 0.70 K/uL [facility] LYMPHOCYTES 49(H) 16 - 45 % [facility] LYMPHOCYTE ABSOLUTE 3.28 0.70 - 4.50 K/uL [facility] BASOPHILS 0 0 - 2 % [facility] BASOPHILS ABSOLUTE 0.02 0.00 - 0.20 K/uL [facility] MONOCYTES 7 3 - 13 % [facility] MONOCYTE ABSOLUTE 0.45 0.10 - 1.30 K/uL [facility] NEUTROPHILS 44(L) 45 - 70 % [facility] NEUTROPHIL ABSOLUTE 2.94 1.90 - 7.00 K/uL [facility] Blood specimen (specimen) 06/10/2007 2:04 PM CDT 06/10/2007 5:42 PM CDT us Jose Angel Bueno MD HEMATOLOGY ORDERABLES Edited INTERFACE SYSTEM Refer to clinic/hospital department [facility] [address] [place] [address] * BASIC METABOLIC PANEL (06/10/2007 2:04 PM CDT) CALCIUM 9.0 8.4 - 10.2 mg/dL [facility] CO2 28 22 - 30 mmol/L [facility] CREATININE 1.14 0.67 - 1.17 mg/dL [facility] POTASSIUM 4.1 3.5 - 4.9 mmol/L [facility] BUN 10 6 - 20 mg/dL [facility] CHLORIDE 105 96 - 108 mmol/L [facility] GLUCOSE 81 65 - 99 mg/dL [facility] SODIUM 142 135 - 145 mmol/L [facility] GFR, >60 >=60 mL/min/1.7 sq meter [facility] GFR >60 >=60 mL/min/1.7 sq meter [facility] Comment: Estimated GFR rate interpretative information for both Americans and non- Americans is available on the [facility] Intranet at: [email or web address] Select: Lab Policies and Procedures Select: Reference Ranges - GFR Blood specimen (specimen) 06/10/2007 2:04 PM CDT 06/10/2007 5:42 PM CDT Jose Angel Bueno MD CHEMISTRY ORDERABLES Edited [facility] [address] [place] [address] documented in this encounter Visit Diagnoses Diagnosis Nonspecific abnormal electrocardiogram (ECG) (EKG) documented in this encounter Additional Health Concerns Infection Onset Date Last Indicated Resolved Time R/O COVID-19 12/24/2019 12/24/2019 12/26/2019 6:02 AM MANAGER LIFE COVID-19 12/24/2019 12/24/2019 01/23/2020 1:16 AM MANAGER LIFE documented as of this encounter Care Teams Ferryboat Captain Relationship Specialty Start Date End Date Chandu Urbina MD PCP - General Family Practice 06/12/23 11/13/23 documented as of this encounter
--- OUTSIDE RECORDS SUMMARY | 2024-06-18 09:55 | XMS_ITS | Clinical Summary ---
Author Organization [facility] Address [address] [place] [address] Care Team Providers Care Microbiology Lab Analyst Name Role Phone Liam Rubin MD Primary Care Provider [phone] Araceli Morales MD Unavailable Source Comments [facility],non-owned Affiliates and Associated Physician Practices is amultiple site organization consisting of ambulatory clinics and hospital sitesin [place], [place], [place] and [place]. This disclosure is being madepursuant to the Care Everywhere program and may not contain all information available regarding this patient. Last updated 17.[facility] Allergies Active Allergy Reactions Criticality Noted Date Comments Bee Venom Anaphylaxis High 08/19/2017 Wasp Venom Protein Anaphylaxis High 06/03/2015 Medications * Be aware that medications may not be up to date on this document. Alwaysverify current medications with the patient. aspirin EC (ECOTRIN) 81 MG tablet Take 81 mg by mouth once daily Active ezetimibe (ZETIA) 10 MG tablet Take 10 mg by mouth once daily 0 Active rosuvastatin (CRESTOR) 40 MG tablet Take 40 mg by mouth at bedtime 1 Active meloxicam (MOBIC) 15 MG tablet Take 15 mg by mouth every 24 hours as needed 0 Active metoprolol succinate XL 24hr (TOPROL XL) 100 MG tablet Take 100 mg by mouth once daily 1 Active amLODIPine (NORVASC) 5 MG tablet Take 5 mg by mouth once daily 0 Active fluticasone propionate (FLONASE) 50 MCG/ACT nasal spray [place] 2 sprays into the nose once daily 1 Active tamsulosin (FLOMAX) 0.4 MG capsule Take 0.4 mg by mouth once daily 0 Active clopidogrel (PLAVIX) 75 MG tablet Take 75 mg by mouth once daily 0 Active EPINEPHrine (EPIPEN) 0.3 MG/0.3ML auto-injector pen Inject 0.3 mg into muscle once as needed 1 Active cetirizine (ZYRTEC) 10 MG tablet Take 1 (one) tablet by mouth once daily 30 tablet 3 1 Active azelastine (ASTELIN) 0.1 % nasal spray SPRAY 1 (ONE) SPRAY INTO EACH NOSTRIL 2 TIMES DAILY 3 Inhaler 1 1 Active omeprazole (PRILOSEC) 40 MG capsule TAKE 1 (ONE) CAPSULE BY MOUTH DAILY BEFORE BREAKFAST 90 capsule 2 1 Active Active Problems Problem Noted Date Diagnosed Date Ankylosing spondylitis of cervical region 2019 Coronary artery disease of n ative artery of [place] heart with stable angina pectoris 06/09/2019 Overview (06/13/2020): stent rca and cx 06/18 History of adenomatous polyp of colon 06/09/2019 Influenza vaccination declined 12/12/2017 Olecranon bursitis of left elbow 09/09/2017 Closed Colles' fracture of left radius 8 Tibial plateau fracture, lef t, closed, with delayed healing, subsequent encounter 08/12/2017 Closed fracture of wrist 08/11/2017 Peripheral vascular disease of lower extremity 1 03/05/2014 Overview (06/13/2020): Right side. Claudication. Hypertension 03/01/2014 Hyperlipidemia 01/19/2013 Obesity 01/14/2012 Benign non-nodular prostatic hyperplasia with lower urinary tract symptoms 05/09/2007 Thoracic or lumbosacral neur itis or radiculitis, unspecified 05/08/2006 Tobacco use disorder 05/08/2006 Overview (06/13/2020): Stopped 2008 Hemangioma 11/08/2004 Immunizations Immunization Administration Dates Next Due Lidia Ramon primary monoval ent 12+ yr 0.3mL Purple cap 04/25/2020,04/04/2020 INFLUENZA VACCINE 11/26/2019 INFLUENZA VACCINE, QUADR. (F LUZONE; FLULAVAL; FLUARIX; AFLURIA QUADRIVALENT; 6MO+), 0.5 ML (IIV4) 12/09/2018 PNEUMOCOCCAL PPSV23 12/01/2019 Social History Tobacco Use Types Packs/Day Years Used Date Smoking Tobacco: Some Days Cigars Smokeless Tobacco: Never Alcohol Use Standard Drinks/Week Comments Yes 0 (1 standard drink = 0.6 oz pur e alcohol) Sex and Gender Information Value Date Recorded Sex Assigned at Not on file Legal Sex Male 11:20 AM THEATER USHER Gender Identity Not on file Sexual Orientation Not on file Last Filed Vital Signs Vital Sign Reading Time Taken Comments Blood Pressure 126/80 06/13/2020 9:11 AM CDT Pulse 59 06/13/2020 9:11 AM CDT Temperature 36.4 C (97.6 F) 06/13/2020 9:11 AM CDT Respiratory Rate - - Oxygen Saturation - - Inhaled Oxygen Concentration - - Weight 108.9 kg (240 lb) 06/13/2020 9:11 AM CDT Height 182.9 cm (6') 06/13/2020 9:11 AM CDT Body Mass Index 32.55 06/13/2020 9:11 AM CDT Plan of Treatment Health Maintenance Due Date Last Done Comments COLOGUARD (AGES 45-75) - COL ON CA SCREENING 1950 COLON MONITORING 1950 COLONOSCOPY - COLON CA SCREENING 1950 CT COLONOGRAPHY - COLON CA SCREENING 1950 Colorectal Cancer Screening 1950 FIT - COLON CA SCREENING 1950 FLEX SIG - COLON CA SCREENING 1950 HEPATITIS C SCREENING 07/08/1969 DTAP/TDAP/TD VACCINES (1 - Tdap) 07/12/1970 ZOSTER VACCINE (1 of 2) 07/12/2001 AAA SCREENING 07/12/2016 SCREENING FOR DIABETES 06/13/2020 PNEUMOCOCCAL VACCINE 50+ (2 of 2 - PCV) 11/30/2020 12/01/2019 COVID-19 VACCINE (3 - 2023-2 5 season) 2023 04/25/2020, 04/04/2020 DEPRESSION SCREENING 02/12/2024 INFLUENZA VACCINE (Season Ended) 2024 11/26/2019, 12/09/2018 Respiratory Syncytial Virus (RSV) Vaccine Pt: or over 60 yrs (1 - 1-dose 75+ series) 07/12/2026 HEPATITIS B VACCINE Aged Out No longe r eligible based on patient's age to complete this topic HIB VACCINE Aged Out No longer eligi ble based on patient's age to complete this topic HPV VACCINE Aged Out No longer eligi ble based on patient's age to complete this topic MENINGOCOCCAL (Group B) VACCINE SHARED DECISION-MAKING Aged Out No longer eligible based on patient's age to complete this topic MENINGOCOCCAL GROUPS A/C/Y/W VACCINE Aged Out No longer eligible b ased on patient's age to complete this topic Insurance [facility] [place] [address] [facility] MANAGED MEDICARE ADV Care Teams Microbiology Lab Analyst Relationship Specialty Start Date End Date iLam Rubin MD [address] [place] [address] PCP - General Internal Medicine 02/18/19 Araceli Morales MD [address] [place] [address] Otolaryngology 06/13/20
--- OUTSIDE RECORDS SUMMARY | 2024-06-18 09:55 | XMS_ITS | Encounter Summary ---
Author Organization [facility] Address [address] [place] [address] Care Team Providers Care Principal System Software Engineer Name Role Phone Chandu Urbina MD Primary Care Provider Unavailab le Encounter Details Date Type Department Care Team (Late st Contact Info) Description 06/05/2007 Outpatient Historical [facility] Primary Care - [address] [place] [address] Liam Rubin MD NO ADDRESS ON FILE Social History Tobacco Use Types Packs/Day Years Used Date Smoking Tobacco: Never Assessed Sex and Gender Information Value Date Recorded Sex Assigned at Not on file Legal Sex Male 2:38 AM BINDERY TECHNICIAN Gender Identity Not on file Sexual Orientation Not on file documented as of this encounter Plan of Treatment Upcoming Encounters Date Type Department Care Team (Late st Contact Info) Description 07/15/2024 9:45 AM CDT Office Visit [facility] Heart and Vascular At [facility] [place] [address] [place] [address] Atif Stover MD [address] [address] [place] [address] 06/15/2025 9:15 AM CDT Office Visit [facility] Hepatology [address] [place] [address] Al Ervin MD [address] [facility] [place] [address] documented as of this encounter Visit Diagnoses Not on filedocumented in this encounter Additional Health Concerns Infection Onset Date Last Indicated Resolved Time R/O COVID-19 12/24/2019 12/24/2019 12/26/2019 6:02 AM BINDERY TECHNICIAN COVID-19 12/24/2019 12/24/2019 01/23/2020 1:16 AM BINDERY TECHNICIAN documented as of this encounter Care Teams Principal System Software Engineer Relationship Specialty Start Date End Date Chandu Urbina MD PCP - General Family Practice 06/12/23 11/13/23 documented as of this encounter
--- OUTSIDE RECORDS SUMMARY | 2024-06-18 09:55 | XMS_ITS | Encounter Summary ---
Author Organization [facility] Address [address] [place] [address] Care Team Providers Care Civil Litigation Attorney Name Role Phone Chandu Urbina MD Primary Care Provider Unavailab le Encounter Details Date Type Department Care Team (Late st Contact Info) Description 06/05/2007 Outpatient Historical [facility] Primary Care - [facility] [address] [place] [address] Len Vides MD [address] [place] [address] Social History Tobacco Use Types Packs/Day Years Used Date Smoking Tobacco: Never Assessed Sex and Gender Information Value Date Recorded Sex Assigned at Not on file Legal Sex Male 2:38 AM CAREER RESOURCE SPECIALIST Gender Identity Not on file Sexual Orientation Not on file documented as of this encounter Plan of Treatment Upcoming Encounters Date Type Department Care Team (Late st Contact Info) Description 07/15/2024 9:45 AM CDT Office Visit [facility] Heart and Vascular At [facility] [address] [place] [address] Atif Stover MD [address] [place] [address] 06/15/2025 9:15 AM CDT Office Visit [facility] Hepatology [address] [place] [address] Al Ervin MD [address] [facility] [place] [address] documented as of this encounter Visit Diagnoses Not on filedocumented in this encounter Additional Health Concerns Infection Onset Date Last Indicated Resolved Time R/O COVID-19 12/24/2019 12/24/2019 12/26/2019 6:02 AM CAREER RESOURCE SPECIALIST COVID-19 12/24/2019 12/24/2019 01/23/2020 1:16 AM CAREER RESOURCE SPECIALIST documented as of this encounter Care Teams Civil Litigation Attorney Relationship Specialty Start Date End Date Chandu Urbina MD PCP - General Family Practice 06/12/23 11/13/23 documented as of this encounter
--- OUTSIDE RECORDS SUMMARY | 2024-06-18 09:55 | XMS_ITS | Encounter Summary ---
Author Organization [facility] Address [address] [place] [address] Care Team Providers Care Pathology Technologist Name Role Phone Chandu Urbina MD Primary Care Provider Unavail le Encounter Details Date Type Department Care Team (Latest Contact Info) Description 07/23/2007 [facility] NO ADDRESS ON FILE Disturbance of Skin Sensation Social History Tobacco Use Types Packs/Day Years Used Date Smoking Tobacco: Never Alcohol Use Standard Drinks/Week Comments Yes 0 (1 standard drink = 0.6 oz pur e alcohol) Sex and Gender Information Value Date Recorded Sex Assigned at Not on file Legal Sex Male 2:38 AM ARMORED CAR GUARD AND DRIVER Gender Identity Not on file Sexual Orientation Not on file documented as of this encounter Plan of Treatment Upcoming Encounters Date Type Department Care Team (Late st Contact Info) Description 07/15/2024 9:45 AM CDT Office Visit [facility] Heart and Vascular At [facility] [address] [place] [address] Atif Stover MD [address] [facility] [facility] [address] [place] [address] 06/15/2025 9:15 AM CDT Office Visit [facility] Hepatology [address] [place] [address] Al Ervin MD [address] [facility] [place] [address] documented as of this encounter Visit Diagnoses Diagnosis Disturbance of skin sensation documented in this encounter Additional Health Concerns Infection Onset Date Last Indicated Resolved Time R/O COVID-19 12/24/2019 12/24/2019 12/26/2019 6:02 AM ARMORED CAR GUARD AND DRIVER COVID-19 12/24/2019 12/24/2019 01/23/2020 1:16 AM ARMORED CAR GUARD AND DRIVER documented as of this encounter Care Teams Pathology Technologist Relationship Specialty Start Date End Date Chandu Urbina MD PCP - General Family Practice 06/12/23 11/13/23 documented as of this encounter
--- OUTSIDE RECORDS SUMMARY | 2024-06-18 09:55 | XMS_ITS | Encounter Summary ---
Author Organization [facility] Address [address] [place] [address] Care Team Providers Care Document Review Specialist Name Role Phone Chandu Urbina MD Primary Care Provider Unavailab le Encounter Details Date Type Department Care Team (Late st Contact Info) Description 06/20/2007 Orders Only [facility] Primary Care - [facility] [address] [place] [address] [address] [place] [address] Liam Rubin MD NO ADDRESS ON FILE Social History Tobacco Use Types Packs/Day Years Used Date Smoking Tobacco: Never Assessed Sex and Gender Information Value Date Recorded Sex Assigned at Not on file Legal Sex Male 2:38 AM SHRIMP TRAWLER CAPTAIN Gender Identity Not on file Sexual Orientation Not on file documented as of this encounter Plan of Treatment Upcoming Encounters Date Type Department Care Team (Late st Contact Info) Description 07/15/2024 9:45 AM CDT Office Visit [facility] Heart and Vascular At [facility] [address] [facility] [facility] [address] [place] [address] Atif Stover MD [address] [facility] [facility] [address] [place] [address] 06/15/2025 9:15 AM CDT Office Visit [facility] Hepatology [address] [facility] [address] [facility] [address] [place] [address] Al Ervin MD [address] [facility] [address] [facility] [place] [address] documented as of this encounter Visit Diagnoses Not on filedocumented in this encounter Additional Health Concerns Infection Onset Date Last Indicated Resolved Time R/O COVID-19 12/24/2019 12/24/2019 12/26/2019 6:02 AM SHRIMP TRAWLER CAPTAIN COVID-19 12/24/2019 12/24/2019 01/23/2020 1:16 AM SHRIMP TRAWLER CAPTAIN documented as of this encounter Care Teams Document Review Specialist Relationship Specialty Start Date End Date Chandu Urbina MD PCP - General Family Practice 06/12/23 11/13/23 documented as of this encounter
--- OUTSIDE RECORDS SUMMARY | 2024-06-18 09:55 | XMS_ITS | Encounter Summary ---
Author Organization [facility] Address [address] [place] [address] Care Team Providers Care Stone Processing Machine Operator Name Role Phone Chandu Urbina MD Primary Care Provider Unavail le Encounter Details Date Type Department Care Team (Latest Contact Info) Description 10/30/2007 Outpatient Historical [facility] Heart and Vascular - 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 Gender Identity Not on file Sexual Orientation Not on file documented as of this encounter Plan of Treatment Upcoming Encounters Date Type Department Care Team (Late st Contact Info) Description 07/15/2024 9:45 AM CDT Office Visit [facility] Heart and Vascular At [facility] [address] [facility] [address] [place] [address] Atif Stover MD [address] [facility] [address] [place] [address] 06/15/2025 9:15 AM CDT Office Visit [facility] Hepatology [address] [place] [address] Al Ervin MD [address] [facility] [place] [address] documented as of this encounter Procedures Procedure Name Priority Date/Time Associated Diagnosis Comments NM MYOCARDIAL PERFUSION EF Timed Study 10/30/2007 9:04 AM CDT documented in this encounter Results * NM MYOCARDIAL PERFUSION EF (10/30/2007 9:04 AM CDT) 10/30/2007 9:04 AM CDT Narrative INTERFACE SYSTEM - 10/30/2007 1:[address] [facility] [address] [place], [place] [address] Admit Date: 10/30/2007 MIRANDA MORALES Sex: M Admit Prov: ALLEN BUENO Date: 1950 Primary Care Prov: NUBIA NEWMAN CMRN: [id number] Room: [facility] SSN: [id number] IMAGING SERVICES Ordering Prov: N/A Accession Number: [id number] Interpretation Date of Procedure: 10/30/2007 Procedure Type: 1 Day Exercise Stress Myocardial Perfusion Study Clinical Indication: 57-year-old gentleman the history of coronary artery disease who is referred for ischemic evaluation. Medications: Toprol, plavix, Zocor, fish oil Exercise Stress Procedure: The patient exercised for 8 minutes and 10 seconds on a Lux protocol, achieving an estimated workload of 10 METS. The resting heart rate was 74 bpm, and increased to 145 bpm at peak exercise, which was 89 % of the predicted maximum heart rate. The resting blood pressure was 140 / 80 and 162 / 84 at peak exercise, demonstrating a normal response to exercise. Exercise was terminated due to leg fatigue. 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 With exercise there was up to [address] segment depression, which normalized early recovery phase. There are no significant arrhythmias with exercise. Nuclear Imaging Protocol: Myocardial perfusion imaging was performed at rest approximately 60 minutes following the intravenous injection of 10.5 mCi TC99m tetrofosmin. At peak exercise, the patient was injected intravenously with 44.3 mCi TC99m tetrofosmin and exercise was continued for 2 minutes. Gated post-stress tomographic imaging was performed approximately 30 minutes later in same manner. SPECT reconstruction was performed in the short, vertical long and horizontal long axis views in both rest and stress image sets. Findings: Rotating planar images do not demonstrate significant motion artifact. There is normal perfusion to all myocardial segments during both stress and rest imaging. There is no ischemia. Gated SPECT examination reveals normal left ventricular cavity size. There is normal left ventricular wall motion. LVEF 72 %. Impression: 1. Normal myocardial perfusion study. No ischemia. 2. Normal gated SPECT examination. Normal left ventricular wall motion. LVEF 72 %. 3. There is upsloping ST segment depression in inferolateral leads; this likely represents false-positive stress ECG. 4. Good exercise capacity. 5. The technical quality of the study is good. 6. No prior study available for comparison. Recommendations: Clinical correlation . Dictated by: ALLEN DINERO 10/30/2007 13:32 Electronically signed by: ALLEN DINERO 10/30/2007 13:45 Procedure Note Allen Dinero MD - 10/30/2007 [facility] [address] [place], [place] [address] Admit Date: 10/30/2007 MIRANDA MORALES Sex: M Admit Prov: SHERRY ALLEN James Date: 1950 Primary Care Prov: NUBIA NEWMAN CMRN: [id number] Room: [facility] SSN: [id number] IMAGING SERVICES Ordering Prov: N/A Interpretation Date of Procedure: 10/30/2007 Procedure Type: 1 Day Exercise Stress Myocardial Perfusion Study Clinical Indication: 57-year-old gentleman the history of coronaryartery disease who is referred for ischemic evaluation. Medications: Toprol, plavix, Zocor, fish oil Exercise Stress Procedure: The patient exercised for 8 minutes and 10 seconds on a Bruceprotocol, achieving an estimated workload of 10 METS. The resting heart ratewas 74 bpm, and increased to 145 bpm at peak exercise, which was 89 % ofthe predicted maximum heart rate. The resting blood pressure was 140 / 80and 162 / 84 at peak exercise, demonstrating a normal response toexercise. Exercise was terminated due to leg fatigue. ECG: Resting ECG demonstrated normal sinus rhythm with evidence of anold inferior myocardial infarction, ST segments and T waves are normal.With exercise there was up to [address] segment depression,which normalized early recovery phase. There are no significant arrhythmiaswith exercise. Nuclear Imaging Protocol: Myocardial perfusion imaging was performed at rest approximately 60minutes following the intravenous injection of 10.5 mCi TC99m tetrofosmin. Atpeak exercise, the patient was injected intravenously with 44.3 eGiND47l tetrofosmin and exercise was continued for 2 minutes. Gatedpost-stress tomographic imaging was performed approximately 30 minutes later insame manner. SPECT reconstruction was performed in the short, verticallong and horizontal long axis views in both rest and stress image sets. Findings: Rotating planar images do not demonstrate significant motionartifact. There is normal perfusion to all myocardial segments during bothstress and rest imaging. There is no ischemia. Gated SPECT examination revealsnormal left ventricular cavity size. There is normal left ventricular wallmotion. LVEF 72 %. Impression: 1. Normal myocardial perfusion study. No ischemia. 2. Normal gated SPECT examination. Normal left ventricular wallmotion. LVEF 72 %. 3. There is upsloping ST segment depression in inferolateral leads;this likely represents false-positive stress ECG. 4. Good exercise capacity. 5. The technical quality of the study is good. 6. No prior study available for comparison. Recommendations: Clinical correlation . Dictated by: ALLEN DINERO 10/30/2007 13:32 Electronically signed by: ALLEN DINERO 10/30/2007 13:45 Allen Bueno MD NM ORDERABLES Final Result INTERFACE SYSTEM Refer to clinic/hospital department documented in this encounter Visit Diagnoses Diagnosis Coronary atherosclerosis of [place] coronary artery documented in this encounter Additional Health Concerns Infection Onset Date Last Indicated Resolved Time R/O COVID-19 12/24/2019 12/24/2019 12/26/2019 6:02 AM SHOP TECH COVID-19 12/24/2019 12/24/2019 01/23/2020 1:16 AM SHOP TECH documented as of this encounter Care Teams Stone Processing Machine Operator Relationship Specialty Start Date End Date Chandu Urbina MD PCP - General Family Practice 06/12/23 11/13/23 documented as of this encounter
--- OUTSIDE RECORDS SUMMARY | 2024-06-18 09:55 | XMS_ITS | Encounter Summary ---
Author Organization [facility] Address [address] [place] [address] Care Team Providers Care Balance Staff Inspector Name Role Phone Chandu Urbina MD Primary Care Provider Unavailab le Encounter Details Date Type Department Care Team (Late st Contact Info) Description 11/21/2000 Outpatient Historical [facility] Primary Care - 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 [address] [facility] [address] [place] [address] Atif Stover MD [address] [facility] [address] [place] [address] 06/15/2025 9:15 AM CDT Office Visit [facility] Hepatology [address] [place] [address] Al Ervin MD [address] [facility] [place] [address] documented as of this encounter Visit Diagnoses Not on filedocumented in this encounter Additional Health Concerns Infection Onset Date Last Indicated Resolved Time R/O COVID-19 12/24/2019 12/24/2019 12/26/2019 6:02 AM COLLAR STAY FUSER TENDER COVID-19 12/24/2019 12/24/2019 01/23/2020 1:16 AM COLLAR STAY FUSER TENDER documented as of this encounter Care Teams Balance Staff Inspector Relationship Specialty Start Date End Date Chandu Urbina MD PCP - General Family Practice 06/12/23 11/13/23 documented as of this encounter
--- OUTSIDE RECORDS SUMMARY | 2024-06-18 09:55 | XMS_ITS | Encounter Summary ---
Author Organization [facility] Address 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 ANALYTICAL SCIENTIST Gender Identity Not on file Sexual Orientation Not on file documented as of this encounter Plan of Treatment Upcoming Encounters Date Type Department Care Team (Late st Contact Info) Description 07/15/2024 9:45 AM CDT Office Visit [facility] Heart and Vascular At [facility] [address] [address] [address] [place] [address] Atif Stover MD [address] [facility] [address] [place] [address] 06/15/2025 9:15 AM CDT Office Visit [facility] Hepatology [address] [place] [address] Al Ervin MD [address] [facility] [place] [address] documented as of this encounter Visit Diagnoses Not on filedocumented in this encounter Additional Health Concerns Infection Onset Date Last Indicated Resolved Time R/O COVID-19 12/24/2019 12/24/2019 12/26/2019 6:02 AM BIOMEDICAL ANALYTICAL SCIENTIST COVID-19 12/24/2019 12/24/2019 01/23/2020 1:16 AM BIOMEDICAL ANALYTICAL SCIENTIST documented as of this encounter Care Teams Automotive Internet Sales Consultant Relationship Specialty Start Date End Date Chandu Urbina MD PCP - General Family Practice 06/12/23 11/13/23 documented as of this encounter
--- OUTSIDE RECORDS SUMMARY | 2024-06-18 09:55 | XMS_ITS | Encounter Summary ---
Author Organization [facility] Address 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 [address] [place] [address] Atif Stover MD [address] [place] [address] 06/15/2025 9:15 AM CDT Office Visit [facility] Hepatology [address] [place] [address] Al Ervin MD [address] [facility] [place] [address] documented as of this encounter Procedures Procedure Name Priority Date/Time Associated Diagnosis Comments CKMB W/REFLEX CK Timed Study 06/13/2007 9:15 PM CDT TROPONIN Timed Study 06/13/2007 9:15 PM CDT CL CORONARY ANGIOGRAM Routine 06/13/2007 7:01 PM CDT CKMB W/REFLEX CK Timed Study 06/13/2007 1:15 PM CDT TROPONIN Timed Study 06/13/2007 1:15 PM CDT POC ACTIVATED CLOTTING TIME Routine 06/13/2007 12:22 PM CDT documented in this encounter Results * TROPONIN (06/13/2007 9:15 PM CDT) TROPONIN T <0.01 <=0.03 ng/mL [facility] TROPONIN T INTERP Negative [facility] Blood specimen (specimen) 06/13/2007 9:15 PM CDT 06/13/2007 9:22 PM CDT us Jose Angel Bueno MD CHEMISTRY ORDERABLES Edited Performing Organization Address City/[facility]/ZIP Co de Phone Number [facility] [address] [place] [address] * CKMB W/REFLEX CK (06/13/2007 9:15 PM CDT) CKMB 3.8 <=6.7 ng/mL [facility] CKMB INTERP Negative [facility] Blood specimen (specimen) 06/13/2007 9:15 PM CDT 06/13/2007 9:22 PM CDT us Jose Angel Bueno MD CHEMISTRY ORDERABLES Edited [facility] [address] [place] [address] [place] [address] * CL CORONARY ANGIOGRAM (06/13/2007 7:01 PM CDT) Narrative INTERFACE SYSTEM - 06/13/2007 7:01 PM CDT [place] [id number] [email or web address] Comprehensive Report Patient: Ayden Gray Study ID: [id number] Gender: M : 1950 Age: 56 years Race: 2 Room: Bed: Height: 0 in ( 0 cm ) Study Date: June 13, 2007 Patient status: Outpatient Weight: 218 lb ( 99.1 kg ) Access. #: [id number] POC: Attending MD: Jenn Smart MD: Jenn Referring Physician: Liam Rubin MD, Jose Angel Bueno MD Indications and History: INDICATIONS: Abnormal stress test. HISTORY: The patient had hypertension, cigarette use (patient quit), and medication-treated hypercholesterolemia. Prior cardiovascular procedures: Diagnostic catheterization 06/11/07 showed 99% proximal and 80% distal RCA disease and 80% discrete mid LCx disease. PRIOR DIAGNOSTIC TEST RESULTS: Previous exercise nuclear stress test performed on June 09, 2007 was positive. There was evidence for ischemia in the inferior left ventricular wall. Procedure(s) Performed: DIAGNOSTIC PROCEDURES: Selective coronary angiography. SUPPORT INTERVENTIONS: PTCA/Stent of the distal RCA. PTCA/Stent of the proximal RCA. Stent of the mid circumflex. Study Conclusions: SUMMARY - There was severe 2 -vessel coronary artery disease ( 99 % RCA and 80 % circumflex). Mid LAD: There was a diffuse 40 % stenosis : Mid circumflex: There was a discrete 80 % stenosis in the middle third of the vessel segment at the origin of LPL1 : Proximal RCA: There was a discrete 99 % stenosis in the mid third of the vessel segment : There was a second discrete 40 % stenosis proximal to the other lesion : Distal RCA: There was a tubular 80 % stenosis in the mid third of the vessel segment : RPDA: There was a discrete 50 % stenosis at the ostium of the vessel segment : - A successful drug eluting stent with balloon angioplasty was performed on the 80 % lesion in the distal RCA. Following intervention there was an excellent angiographic appearance with a 0 % residual stenosis. - A successful drug eluting stent with balloon angioplasty was performed on the 99 % lesion in the proximal RCA. Following intervention there was an excellent angiographic appearance with a 0 % residual stenosis. - A successful bare metal stent with balloon angioplasty was performed on the 80 % lesion in the mid circumflex. Following intervention there was an excellent angiographic appearance with a 0 % residual stenosis. RECOMMENDATIONS Successful percutaneous coronary intervention of the proximal and distal RCA and mid LCx. The patient should continue with the present medications. The patient should take aspirin 325 PO QD indefinitely. The patient should take clopidogrel 75 PO QD for 4 months at which point it can be discontinued. The patient should take atorvastatin 40 PO QD indefinitely. The patient will remain in the hospital overnight for observation and rest; I anticipate discharge tomorrow. A follow-up appointment is recommended in 4 weeks. The patient was instructed to contact the office should symptoms worsen at any point. The patient has been instructed to follow-up with you (the referring physician) in the near future. COMPLICATIONS: There were no complications. Description of Procedure: BACKGROUND INFORMATION: The procedures, together with their attendant risks and alternatives, and conscious sedation were explained to the patient and informed consent was obtained. Contrast ( Optiray, 200 ml ) was administered during the procedure. The patient was given 75.000 mg Angiomax Bolus(IVP) 5mg/ml. The patient was given 1.800 mg/kg/hr Angiomax Drip 250mg/50ml. The patient was given 50.000 mL (IV) IV Solutions. The patient was given 300.000 mcg NTG (IC). The patient was given 3.000 l/min OXYGEN. The patient was given 4.000 mg VERSED (IVP). NARRATIVE: - Right femoral artery access. The procedure was done with local anesthesia [lidocaine 2 %] and the modified Seldinger technique. - Left coronary artery angiography. A catheter was advanced to the ascending aorta and positioned in the vessel origin , under fluoroscopic guidance. Digital angiography was performed in multiple projections using hand-injection of contrast. - Right coronary artery angiography. A catheter was advanced to the ascending aorta and positioned in the vessel origin , under fluoroscopic guidance. Digital angiography was performed in multiple projections using hand-injection of contrast. - Proceeded with coronary intervention as noted below. - Arterial hemostasis was deferred and the sheaths were sutured in place. Hemodynamics: IMPRESSIONS: Hemodynamic assessment demonstrated normal hemodynamics. Cardiac structures: VENTRICULOGRAPHY: No left ventriculogram was performed. Coronary and graft angiography: The coronary circulation is right dominant. LEFT ANTERIOR DESCENDING AND BRANCHES: Mid LAD: There was a diffuse 40 % stenosis : LEFT CIRCUMFLEX AND BRANCHES: Mid circumflex: There was a discrete 80 % stenosis in the middle third of the vessel segment at the origin of LPL1 : RIGHT CORONARY AND BRANCHES: Proximal RCA: There was a discrete 99 % stenosis in the mid third of the vessel segment : There was a second discrete 40 % stenosis proximal to the other lesion : Distal RCA: There was a tubular 80 % stenosis in the mid third of the vessel segment : RPDA: The vessel was small. There was a discrete 50 % stenosis at the ostium of the vessel segment : IMPRESSIONS: There was severe 2 -vessel coronary artery disease ( 99 % RCA and 80 % circumflex). Coronary Interventions: FIRST LESION: First lesion Summary: A successful drug eluting stent with balloon angioplasty was performed on the 80 % lesion in the distal RCA. Following intervention there was an excellent angiographic appearance with a 0 % residual stenosis. Before the intervention there was LORENA 3 flow. Following the procedure, the intervention site exhibited LORENA 3 flow. This was an ACC/AHA type A low risk lesion for intervention. First lesion intervention detail: Setup: A 6F JR4 SH guiding catheter was used to intubate the vessel. The lesion was crossed with a .014 x 190 cm BMW wire. Procedures: Balloon angioplasty was performed with a 2.5 x 15mm Taos 2 RX balloon. 3 inflation(s) were performed, with a maximum inflation pressure of 6 julee. A 2.5 x 18mm Cypher RX stent was deployed and 1 inflation(s) were performed. with one inflation at a maximum inflation pressure of 16 julee There were no site complications. Second lesion summary: A successful drug eluting stent with balloon angioplasty was performed on the 99 % lesion in the proximal RCA. Following intervention there was an excellent angiographic appearance with a 0 % residual stenosis. The residual lesion was discrete. Before the intervention there was LORENA 3 flow. Following the procedure, the intervention site exhibited LORENA 3 flow. Second lesion intervention detail: Setup: A 6F JR4 SH guiding catheter was used to intubate the vessel. The lesion was crossed with a .014 x 190 cm BMW wire. Procedures: Balloon angioplasty was performed with a 2.5 x 15mm Taos 2 RX balloon. 1 inflation(s) were performed, with a maximum inflation pressure of 6 julee. A 2.5 x 8mm Cypher RX stent was deployed and 1 inflation(s) were performed. with one inflation at a maximum inflation pressure of 16 julee There were no site complications. Third lesion summary: A successful bare metal stent with balloon angioplasty was performed on the 80 % lesion in the mid circumflex. Following intervention there was an excellent angiographic appearance with a 0 % residual stenosis. The residual lesion was discrete. There was no evidence of thrombus following the procedure. Before the intervention there was LORENA 3 flow. Following the procedure, the intervention site exhibited LORENA 3 flow. This was an ACC/AHA type A low risk lesion for intervention. Third lesion intervention detail: Setup: A 6F XBLAD3.5 guiding catheter was used to intubate the vessel. The lesion was crossed with a .014 x 190 cm BMW wire. Procedures: A 3.5 mm x 12 mm Vision stent was deployed and 1 inflation(s) were performed. with one inflation at a maximum inflation pressure of 14 julee There were no site complications. Condition1: --- Pressure mmHg Rate dPdt AO 110-S/ 73-D, 89-M 70 BPM AOp 108-S/ 69-D, 87-M 68 BPM Prepared and Electronically Authenticated Jose Angel Bueno MD Confirmed June 13, 2007 17:57:27 Procedure Note Provider, Historical - 06/13/[address] [address] [email or web address] Comprehensive Report Patient: Ayden Gray Study ID: [id number] Gender: Julien : 1950 Age: 56 years Race: 2 Room: Bed: Height: 0 in ( 0 cm ) Study Date: June 13, 2007 Patient status: Outpatient Weight: 218 lb ( 99.1 kg ) Access. #: [id number] POC: Attending MD: Jenn Smart MD: Jenn Referring Physician: Liam Rubin MD, Jose Angel Bueno MD Indications and History: INDICATIONS: Abnormal stress test. HISTORY: The patient had hypertension, cigarette use (patient quit), and medication-treated hypercholesterolemia. Prior cardiovascular procedures: Diagnostic catheterization 06/11/07showed 99% proximal and 80% distal RCA disease and 80% discrete mid LCxdisease. PRIOR DIAGNOSTIC TEST RESULTS: Previous exercise nuclear stress test performed on June 09, 2007 was positive. There was evidence for ischemia in the inferior leftventricular wall. Procedure(s) Performed: DIAGNOSTIC PROCEDURES: Selective coronary angiography. SUPPORT INTERVENTIONS: PTCA/Stent of the distal RCA. PTCA/Stent of the proximal RCA. Stent ofthe mid circumflex. Study Conclusions: SUMMARY - There was severe 2 -vessel coronary artery disease ( 99 % RCA and 80% circumflex). Mid LAD: There was a diffuse 40 % stenosis : Mid circumflex: There was a discrete 80 % stenosis in the middle third of the vessel segment at the origin of LPL1 : Proximal RCA: There was a discrete 99 % stenosis in the mid third of the vessel segment : There was a second discrete 40 % stenosis proximal to the other lesion : Distal RCA: There was a tubular 80 % stenosis in the mid third of the vessel segment : RPDA: There was a discrete 50 % stenosis at the ostium of the vessel segment : - A successful drug eluting stent with balloon angioplasty wasperformed on the 80 % lesion in the distal RCA. Following intervention there was an excellent angiographic appearance with a 0 % residual stenosis. - A successful drug eluting stent with balloon angioplasty wasperformed on the 99 % lesion in the proximal RCA. Following intervention there was an excellent angiographic appearance with a 0 % residual stenosis. - A successful bare metal stent with balloon angioplasty was performedon the 80 % lesion in the mid circumflex. Following intervention there was an excellent angiographic appearance with a 0 % residual stenosis. RECOMMENDATIONS Successful percutaneous coronary intervention of the proximal and distal RCA and mid LCx. The patient should continue with the presentmedications. The patient should take aspirin 325 PO QD indefinitely. The patientshould take clopidogrel 75 PO QD for 4 months at which point it can be discontinued. The patient should take atorvastatin 40 PO QDindefinitely. The patient will remain in the hospital overnight for observation [place]; I anticipate discharge tomorrow. A follow-up appointment is recommendedin 4 weeks. The patient was instructed to contact the office shouldsymptoms worsen at any point. The patient has been instructed to follow-up withyou (the referring physician) in the near future. COMPLICATIONS: There were no complications. Description of Procedure: BACKGROUND INFORMATION: The procedures, together with their attendant risks and alternatives,and conscious sedation were explained to the patient and informed consentwas obtained. Contrast ( Optiray, 200 ml ) was administered during the procedure. The patient was given 75.000 mg Angiomax Bolus(IVP) 5mg/ml.The patient was given 1.800 mg/kg/hr Angiomax Drip 250mg/50ml. The patientwas given 50.000 mL (IV) IV Solutions. The patient was given 300.000 mcg NTG (IC). The patient was given 3.000 l/min OXYGEN. The patient was given4.000 mg VERSED (IVP). NARRATIVE: - Right femoral artery access. The procedure was done with local anesthesia [lidocaine 2 %] and the modified Seldinger technique. - Left coronary artery angiography. A catheter was advanced to the ascending aorta and positioned in the vessel origin , under fluoroscopic guidance. Digital angiography was performed in multiple projections using hand-injection of contrast. - Right coronary artery angiography. A catheter was advanced to the ascending aorta and positioned in the vessel origin , under fluoroscopic guidance. Digital angiography was performed in multiple projections using hand-injection of contrast. - Proceeded with coronary intervention as noted below. - Arterial hemostasis was deferred and the sheaths were sutured inplace. Hemodynamics: IMPRESSIONS: Hemodynamic assessment demonstrated normal hemodynamics. Cardiac structures: VENTRICULOGRAPHY: No left ventriculogram was performed. Coronary and graft angiography: The coronary circulation is right dominant. LEFT ANTERIOR DESCENDING AND BRANCHES: Mid LAD: There was a diffuse 40 % stenosis : LEFT CIRCUMFLEX AND BRANCHES: Mid circumflex: There was a discrete 80 % stenosis in the middle thirdof the vessel segment at the origin of LPL1 : RIGHT CORONARY AND BRANCHES: Proximal RCA: There was a discrete 99 % stenosis in the mid third of the vessel segment : There was a second discrete 40 % stenosis proximal tothe other lesion : Distal RCA: There was a tubular 80 % stenosis in the mid third of the vessel segment : RPDA: The vessel was small. There was a discrete 50 % stenosis at the ostium of the vessel segment : IMPRESSIONS: There was severe 2 -vessel coronary artery disease ( 99 % RCA and 80 % circumflex). Coronary Interventions: FIRST LESION: First lesion Summary: A successful drug eluting stent with balloon angioplasty was performed on the 80 % lesion in the distal RCA.Following intervention there was an excellent angiographic appearance with a 0 % residual stenosis. Before the intervention there was LORENA 3 flow.Following the procedure, the intervention site exhibited LORENA 3 flow. This was an ACC/AHA type A low risk lesion for intervention. First lesion intervention detail: Setup: A 6F JR4 SH guiding catheter was used to intubate the vessel. The lesion was crossed with a .014 x 190 cm BMW wire. Procedures: Balloon angioplasty was performed with a 2.5 x 15mm Maverick2 RX balloon. 3 inflation(s) were performed, with a maximum inflation pressure of 6 julee. A 2.5 x 18mm Cypher RX stent was deployed and 1 inflation(s) were performed. with one inflation at a maximum inflation pressure of 16 julee There were no site complications. Second lesion summary: A successful drug eluting stent with balloon angioplasty was performed on the 99 % lesion in the proximal RCA.Following intervention there was an excellent angiographic appearance with a 0 % residual stenosis. The residual lesion was discrete. Before the intervention there was LORENA 3 flow. Following the procedure, the intervention site exhibited LORENA 3 flow. Second lesion intervention detail: Setup: A 6F JR4 SH guiding catheter was used to intubate the vessel. The lesion was crossed with a .014 x 190 cm BMW wire. Procedures: Balloon angioplasty was performed with a 2.5 x 15mm Maverick2 RX balloon. 1 inflation(s) were performed, with a maximum inflation pressure of 6 julee. A 2.5 x 8mm Cypher RX stent was deployed and 1 inflation(s) wereperformed. with one inflation at a maximum inflation pressure of 16 julee There were no site complications. Third lesion summary: A successful bare metal stent with balloon angioplasty was performed on the 80 % lesion in the mid circumflex. Following intervention there was an excellent angiographic appearancewith a 0 % residual stenosis. The residual lesion was discrete. There was no evidence of thrombus following the procedure. Before the interventionthere was LORENA 3 flow. Following the procedure, the intervention siteexhibited LORENA 3 flow. This was an ACC/AHA type A low risk lesion forintervention. Third lesion intervention detail: Setup: A 6F XBLAD3.5 guiding catheter was used to intubate the vessel.The lesion was crossed with a .014 x 190 cm BMW wire. Procedures: A 3.5 mm x 12 mm Vision stent was deployed and 1inflation(s) were performed. with one inflation at a maximum inflation pressure of 14 julee There were no site complications. Condition1: --- Pressure mmHg Rate dPdt AO 110-S/ 73-D, 89-M 70 BPM AOp 108-S/ 69-D, 87-M 68 BPM Prepared and Electronically Authenticated Jose Angel Bueno MD Confirmed June 13, 2007 17:57:27 Jose Angel Bueno MD FLUOROSCOPY ORDERABLES Final Res ult Performing Organization Address [facility]/ZIP Co de Phone Number INTERFACE SYSTEM Refer to clinic/hospital department * CKMB W/REFLEX CK (06/13/2007 1:15 PM CDT) CKMB 3.4 <=6.7 ng/mL [facility] CKMB INTERP Negative [facility] Blood specimen (specimen) 06/13/2007 1:15 PM CDT 06/13/2007 2:04 PM CDT Jose Angel Bueno MD CHEMISTRY ORDERABLES Edited Performing Organization Address [facility]/Qnekt Co de Phone Number [facility] [address] [place] [address] * TROPONIN (06/13/2007 1:15 PM CDT) TROPONIN T <0.01 <=0.03 ng/mL [facility] TROPONIN T INTERP Negative [facility] Blood specimen (specimen) 06/13/2007 1:15 PM CDT 06/13/2007 2:04 PM CDT Result [facility] us Jose Angel Bueno MD CHEMISTRY ORDERABLES Edited Performing Organization Address [facility] Co de Phone Number [facility] [address] [place] [address] * POC ACTIVATED CLOTTING TIME (06/13/2007 12:22 PM CDT) ACT POC 277 Seconds [facility] Comment: Note sheath pull range change effective 08/03/2005. ACT value for sheath pull at [facility] has been established to be < or = to 140. (See also Nursing Procedures for sheath pull in related nursing areas) Blood specimen (specimen) 06/13/2007 12:22 PM CDT 06/13/2007 12:22 PM CDT us Jose Angel Bueno MD POINT OF CARE TESTING Final Resu lt Performing Organization Address [facility] Co de Phone Number [facility] [address] [place] [address] documented in this encounter Visit Diagnoses Diagnosis Chest pain, unspecified documented in this encounter Additional Health Concerns Infection Onset Date Last Indicated Resolved Time R/O COVID-19 12/24/2019 12/24/2019 12/26/2019 6:02 AM RESIDENT BUYER COVID-19 12/24/2019 12/24/2019 01/23/2020 1:16 AM RESIDENT BUYER documented as of this encounter Care Teams Sugarcane Research Technician Relationship Specialty Start Date End Date Chandu Urbina MD PCP - General Family Practice 06/12/23 11/13/23 documented as of this encounter
--- OUTSIDE RECORDS SUMMARY | 2024-06-18 09:55 | XMS_ITS | Encounter Summary ---
Author Organization [facility] Address 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 Gender Identity Not on file Sexual Orientation Not on file documented as of this encounter Plan of Treatment Upcoming Encounters Date Type Department Care Team (Late st Contact Info) Description 07/15/2024 9:45 AM CDT Office Visit [facility] Heart [facility] At [facility] [address] [place] [address] Atif Stover MD [address] [place] [address] 06/15/2025 9:15 AM CDT Office Visit [facility] Hepatology [address] [place] [address] Al Ervin MD [address] [facility] Hepatology [facility] [place] [id number] documented as of this encounter Visit Diagnoses Diagnosis Pain in joint, shoulder region- Primary documented in this encounter Additional Health Concerns Infection Onset Date Last Indicated Resolved Time R/O COVID-19 12/24/2019 12/24/2019 12/26/2019 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
--- OUTSIDE RECORDS SUMMARY | 2024-06-18 09:55 | XMS_ITS | Encounter Summary ---
Author Organization [facility] Address [address] [place] [address] Care Team Providers Care Wig Maker Name Role Phone Chandu Urbina MD Primary Care Provider Unavailab le Encounter Details Date Type Department Care Team (Late st Contact Info) Description 04/17/1999 Outpatient Historical [facility] [address] [place] [address] Aris Tobias MD [address] [place] [address] Social History Tobacco Use Types Packs/Day Years Used Date Smoking Tobacco: Never Assessed Sex and Gender Information Value Date Recorded Sex Assigned at Not on file Legal Sex Male 2:38 AM WILDLAND FIRE OPERATIONS SPECIALIST Gender Identity Not on file Sexual Orientation Not on file documented as of this encounter Plan of Treatment Upcoming Encounters Date Type Department Care Team (Late st Contact Info) Description 07/15/2024 9:45 AM CDT Office Visit [facility] Heart and Vascular At [facility] [address] [place] [address] Atif Stover MD [address] [place] [address] 06/15/2025 9:15 AM CDT Office Visit [facility] Hepatology [address] [place] [address] Al Ervin MD [address] [facility] [place] [address] documented as of this encounter Visit Diagnoses Not on filedocumented in this encounter Additional Health Concerns Infection Onset Date Last Indicated Resolved Time R/O COVID-19 12/24/2019 12/24/2019 12/26/2019 6:02 AM WILDLAND FIRE OPERATIONS SPECIALIST COVID-19 12/24/2019 12/24/2019 01/23/2020 1:16 AM WILDLAND FIRE OPERATIONS SPECIALIST documented as of this encounter Care Teams Wig Maker Relationship Specialty Start Date End Date Chandu Urbina MD PCP - General Family Practice 06/12/23 11/13/23 documented as of this encounter
--- OUTSIDE RECORDS SUMMARY | 2024-06-18 09:55 | XMS_ITS | Encounter Summary ---
Author Organization [facility] Address [address] [place] [address] Care Team Providers Care Head Scorer Name Role Phone Chandu Urbina MD Primary Care Provider Kimberly le Encounter Details Date Type Department Care Team (Latest Contact Info) Description 11/18/2007 Outpatient Historical [facility] Liam Rubin MD NO ADDRESS ON FILE Pain in Joint, Lower Leg Social History Tobacco Use Types Packs/Day Years Used Date Smoking Tobacco: Never Alcohol Use Standard Drinks/Week Comments Yes 0 (1 standard drink = 0.6 oz pur e alcohol) Sex and Gender Information Value Date Recorded Sex Assigned at Not on file Legal Sex Male 2:38 AM NUTRITIONAL SERVICES DIRECTOR Gender Identity Not on file Sexual Orientation Not on file documented as of this encounter Plan of Treatment Upcoming Encounters Date Type Department Care Team (Late st Contact Info) Description 07/15/2024 9:45 AM CDT Office Visit [facility] Heart and [facility] At [facility] [address] [place] [address] Atif Stover MD [address] [place] [address] 06/15/2025 9:15 AM CDT Office Visit [facility] Hepatology [address] [place] [address] Al Ervin MD [address] [facility] [place] [address] documented as of this encounter Visit Diagnoses Diagnosis Pain in joint, lower leg documented in this encounter Additional Health Concerns Infection Onset Date Last Indicated Resolved Time R/O COVID-19 12/24/2019 12/24/2019 12/26/2019 6:02 AM NUTRITIONAL SERVICES DIRECTOR COVID-19 12/24/2019 12/24/2019 01/23/2020 1:16 AM NUTRITIONAL SERVICES DIRECTOR documented as of this encounter Care Teams Head Scorer Relationship Specialty Start Date End Date Chandu Urbina MD PCP - General Family Practice 06/12/23 11/13/23 documented as of this encounter
--- OUTSIDE RECORDS SUMMARY | 2024-06-18 09:55 | XMS_ITS | Encounter Summary ---
Author Organization [facility] Address [address] [place] [address] Care Team Providers Care Hull Inspector Name Role Phone Chandu Urbina MD Primary Care Provider Unavailab le Encounter Details Date Type Department Care Team (Late st Contact Info) Description 11/30/1999 Outpatient Historical [facility] Primary Care - [facility] [address] [place] [address] Aris Tobias MD [address] [place] [address] Social History Tobacco Use Types Packs/Day Years Used Date Smoking Tobacco: Never Assessed Sex and Gender Information Value Date Recorded Sex Assigned at Not on file Legal Sex Male 2:38 AM PAPER TUBE MACHINE OPERATOR Gender Identity Not on file Sexual Orientation Not on file documented as of this encounter Plan of Treatment Upcoming Encounters Date Type Department Care Team (Late st Contact Info) Description 07/15/2024 9:45 AM CDT Office Visit [facility] [address] [place] [address] Atif Stover MD [address] [place] [address] 06/15/2025 9:15 AM CDT Office Visit [facility] [address] [place] [address] Al Ervin MD [address] [facility] [place] [address] documented as of this encounter Visit Diagnoses Not on filedocumented in this encounter Additional Health Concerns Infection Onset Date Last Indicated Resolved Time R/O COVID-19 12/24/2019 12/24/2019 12/26/2019 6:02 AM PAPER TUBE MACHINE OPERATOR COVID-19 12/24/2019 12/24/2019 01/23/2020 1:16 AM PAPER TUBE MACHINE OPERATOR documented as of this encounter Care Teams Hull Inspector Relationship Specialty Start Date End Date Chandu Urbina MD PCP - General Family Practice 06/12/23 11/13/23 documented as of this encounter
--- OUTSIDE RECORDS SUMMARY | 2024-06-18 09:55 | XMS_ITS | Encounter Summary ---
Author Organization [facility] Address [address] [place] [address] Care Team Providers Care Regulatory Services Consultant Name Role Phone Chandu Urbina MD Primary Care Provider Unavailab le Encounter Details Date Type Department Care Team (Late st Contact Info) Description 02/23/2000 Outpatient Historical [facility] Primary Care - [facility] [address] [place] [address] Aris Tobias MD [address] [facility] [address] [place] [address] Social History Tobacco Use Types Packs/Day Years Used Date Smoking Tobacco: Never Assessed Sex and Gender Information Value Date Recorded Sex Assigned at Not on file Legal Sex Male 2:38 AM SUPERVISOR TREE TRIMMING Gender Identity Not on file Sexual Orientation Not on file documented as of this encounter Plan of Treatment Upcoming Encounters Date Type Department Care Team (Late st Contact Info) Description 07/15/2024 9:45 AM CDT Office Visit [facility] Heart and Vascular At [facility] [place] [place] [address] [place] [address] Atif Stover MD [address] [place] [address] 06/15/2025 9:15 AM CDT Office Visit [facility] Hepatology [address] [place] [address] Al Ervin MD [address] [facility] [place] [address] documented as of this encounter Visit Diagnoses Not on filedocumented in this encounter Additional Health Concerns Infection Onset Date Last Indicated Resolved Time R/O COVID-19 12/24/2019 12/24/2019 12/26/2019 6:02 AM SUPERVISOR TREE TRIMMING COVID-19 12/24/2019 12/24/2019 01/23/2020 1:16 AM SUPERVISOR TREE TRIMMING documented as of this encounter Care Teams Regulatory Services Consultant Relationship Specialty Start Date End Date Chandu Urbina MD PCP - General Family Practice 06/12/23 11/13/23 documented as of this encounter
--- OUTSIDE RECORDS SUMMARY | 2024-06-18 09:55 | XMS_ITS | Encounter Summary ---
Author Organization [facility] Address [address] [place] [address] Care Team Providers Care Construction Inspector Name Role Phone Chandu Urbina MD Primary Care Provider Unavail le Encounter Details Date Type Department Care Team (Late st Contact Info) Description 06/11/2007 Outpatient Historical [facility] Jose Angel Bueno MD NO ADDRESS ON FILE Other Chest Pain Social History Tobacco Use Types Packs/Day Years Used Date Smoking Tobacco: Never Assessed Sex and Gender Information Value Date Recorded Sex Assigned at Not on file Legal Sex Male 2:38 AM SURVEILLANCE SYSTEMS ENGINEER Gender Identity Not on file Sexual Orientation Not on file documented as of this encounter Plan of Treatment Upcoming Encounters Date Type Department Care Team (Late st Contact Info) Description 07/15/2024 9:45 AM CDT Office Visit [facility] Heart and Vascular At [facility] [address] [place] [address] Atif Stover MD [address] [place] [address] 06/15/2025 9:15 AM CDT Office Visit [facility] Hepatology [address] [place] [address] Al Ervin MD [address] [facility] [place] [address] documented as of this encounter Visit Diagnoses Diagnosis Other chest pain documented in this encounter Additional Health Concerns Infection Onset Date Last Indicated Resolved Time R/O COVID-19 12/24/2019 12/24/2019 12/26/2019 6:02 AM SURVEILLANCE SYSTEMS ENGINEER COVID-19 12/24/2019 12/24/2019 01/23/2020 1:16 AM SURVEILLANCE SYSTEMS ENGINEER documented as of this encounter Care Teams Construction Inspector Relationship Specialty Start Date End Date Chandu Urbina MD PCP - General Family Practice 06/12/23 11/13/23 documented as of this encounter
--- OUTSIDE RECORDS SUMMARY | 2024-06-18 09:55 | XMS_ITS | Encounter Summary ---
Author Organization [facility] Address [address] [place] [address] Care Team Providers Care Army Manager Name Role Phone Chandu Urbina MD Primary Care Provider Kimberly le Encounter Details Date Type Department Care Team (Latest Contact Info) Description 07/01/2007 Outpatient Historical [facility] Jose Angel Bueno MD NO ADDRESS ON FILE Cor Athrscl-Uns Vessel; Other Chest Pain Social History Tobacco Use Types Packs/Day Years Used Date Smoking Tobacco: Never Assessed Sex and Gender Information Value Date Recorded Sex Assigned at Not on file Legal Sex Male 2:38 AM RECEPTION Gender Identity Not on file Sexual Orientation Not on file documented as of this encounter Plan of Treatment Upcoming Encounters Date Type Department Care Team (Late st Contact Info) Description 07/15/2024 9:45 AM CDT Office Visit [facility] Heart and V[facility] At [facility] [address] [place] [address] Atif Stover MD [address] [place] [address] 06/15/2025 9:15 AM CDT Office Visit [facility] Hepatology [address] [place] [address] Al Ervin MD [address] [facility] [place] [address] documented as of this encounter Visit Diagnoses Diagnosis Coronary atherosclerosis of unspecified type of vessel, [place] or graft Other chest pain documented in this encounter Additional Health Concerns Infection Onset Date Last Indicated Resolved Time R/O COVID-19 12/24/2019 12/24/2019 12/26/2019 6:02 AM RECEPTION COVID-19 12/24/2019 12/24/2019 01/23/2020 1:16 AM RECEPTION documented as of this encounter Care Teams Army Manager Relationship Specialty Start Date End Date Chandu Urbina MD PCP - General Family Practice 06/12/23 11/13/23 documented as of this encounter
--- OUTSIDE RECORDS SUMMARY | 2024-06-18 09:55 | XMS_ITS | Encounter Summary ---
Author Organization [facility] Address [address] [place] [address] Care Team Providers Care Tombstone Erector Helper Name Role Phone Chandu Urbina MD Primary Care Provider Unavailab le Encounter Details Date Type Department Care Team (Late st Contact Info) Description 09/27/1999 Outpatient Historical [facility] Primary Care - [facility] [address] [place] [address] Aris Tobias MD [address] [place] [address] Social History Tobacco Use Types Packs/Day Years Used Date Smoking Tobacco: Never Assessed Sex and Gender Information Value Date Recorded Sex Assigned at Not on file Legal Sex Male 2:38 AM CHEMICAL ENGINEERING TECHNICIAN Gender Identity Not on file Sexual Orientation Not on file documented as of this encounter Plan of Treatment Upcoming Encounters Date Type Department Care Team (Late st Contact Info) Description 07/15/2024 9:45 AM CDT Office Visit [facility] Heart and Vascular At [facility] [address] [place] [address] Atif Stover MD [address] [facility] [facility] [place] [address] 06/15/2025 9:15 AM CDT Office Visit [facility] Hepatology [address] [place] [address] Al Ervin MD [address] [facility] [place] [address] documented as of this encounter Visit Diagnoses Not on filedocumented in this encounter Additional Health Concerns Infection Onset Date Last Indicated Resolved Time R/O COVID-19 12/24/2019 12/24/2019 12/26/2019 6:02 AM CHEMICAL ENGINEERING TECHNICIAN COVID-19 12/24/2019 12/24/2019 01/23/2020 1:16 AM CHEMICAL ENGINEERING TECHNICIAN documented as of this encounter Care Teams Tombstone Erector Helper Relationship Specialty Start Date End Date Chandu Urbina MD PCP - General Family Practice 06/12/23 11/13/23 documented as of this encounter
--- OUTSIDE RECORDS SUMMARY | 2024-06-18 09:55 | XMS_ITS | Encounter Summary ---
Author Organization [facility] Address [address] [place] [address] Care Team Providers Care Minister Helper Name Role Phone Chandu Urbina MD Primary Care Provider Unavail le Encounter Details Date Type Department Care Team (Latest Contact Info) Description 06/06/2007 Outpatient Historical [facility] Liam Rubin MD NO ADDRESS ON FILE Unspecified Chest Pain Social History Tobacco Use Types Packs/Day Years Used Date Smoking Tobacco: Never Assessed Sex and Gender Information Value Date Recorded Sex Assigned at Not on file Legal Sex Male 2:38 AM OUTSIDE RESIDENTIAL SALES PROFESSIONAL Gender Identity Not on file Sexual Orientation Not on file documented as of this encounter Plan of Treatment Upcoming Encounters Date Type Department Care Team (Late st Contact Info) Description 07/15/2024 9:45 AM CDT Office Visit [facility] Heart and Vascular At [facility] [address] [place] [address] Atif Stover MD [address] [place] [address] 06/15/2025 9:15 AM CDT Office Visit [facility] Hepatology [address] [place] [address] Al Ervin MD [address] [facility] [place] [address] documented as of this encounter Procedures Procedure Name Priority Date/Time Associated Diagnosis Comments ECHO STRESS TEST EXERCISE WO ECG Routine 06/06/2007 1:55 PM CDT documented in this encounter Results * ECHOCARDIOGRAM STRESS TEST (06/06/2007 1:55 PM CDT) Narrative INTERFACE SYSTEM - 06/06/2007 1:55 PM CDT [facility] [address] [place] [address] [email or web address] Stress [email or web address] Patient: Ayden Gray MRN: Study ID: ADULT STRESS ECH Gender: M : 1950 Age: 56 years Race: 2 Room: Bed: Height: Study Date: June 06, 2007 Patient status: Outpatient Weight: Access. #: [id number] POC: Ordering: Virginie Attending MD: Virginie Admitting MD: Virginie Study Conclusions: SUMMARY - Stress results : Duration of exercise was 7 min. Target heart rate was achieved. The patient experienced chest pain during stress; pain resolved spontaneously. The patient experienced typical chest pain during stress; pain resolved spontaneously. The stress ECG was consistent with myocardial ischemia. - Echo image interpretation : Findings were suggestive of stress-induced ischemia of the entire lateral wall. IMPRESSIONS - Abnormal study after maximal exercise with reproduction of symptoms. History and indications HISTORY - Chest pain status: chest pain. - Coronary artery disease risk factors: family history of premature coronary artery disease. REST ECG - Normal baseline ECG. Stress results Lux protocol Baseline HR bpm: 84 SBP mmH DBP mmH Symptoms: none ST change: none Rhythm/conduct: NSR, no ectopy Peak HR bpm: 152 SBP mmH DBP mmH Symptoms: moderate chest discomfort ST change: downsloping depression, 1.5-2 mm in II, III, aVF, V5 and V6 Rhythm/conduct: NSR, no ectopy Recovery 1 HR bpm: 91 SBP mmH DBP mmH Symptoms: none ST change: none Rhythm/conduct: NSR, no ectopy STRESS RESULTS - Duration of exercise was 7 min. - The patient exercised to protocol stage 3. - Maximal work rate was 10.1 METs. - Functional capacity was normal. - Maximal heart rate during stress was 152 bpm ( 92 % of maximal predicted heart rate). - The heart rate response to stress was normal. - There was normal resting blood pressure with an appropriate response to stress. - The rate-pressure product for the peak heart rate and blood pressure was [address]. - The patient experienced chest pain during stress; pain resolved spontaneously. - The patient experienced typical chest pain during stress; pain resolved spontaneously. - The stress test was terminated due to moderate chest discomfort. - There were no stress arrhythmias or conduction abnormalities. - The stress ECG was consistent with myocardial ischemia. Imaging data IMAGE PROPERTIES - The image quality was good. STRESS 2D ECHOCARDIOGRAPHIC RESULTS Baseline: - There was no diagnostic evidence for left ventricular regional wall motion abnormalities at baseline. ECHO IMPRESSIONS - Echocardiographic findings were positive for stress-induced ischemia. - Findings were suggestive of stress-induced ischemia of the entire lateral wall. Prepared and Electronically Authenticated Fito Stephens MD Confirmed June 06, 2007 13:38:23 Procedure Note Provider, Historical - 06/06/2007 [facility] [address] [place] [address] [email or web address] Stress Study Patient: Ayden Gray MRN: Study ID: ADULT STRESS ECH Gender: Julien : 1950 Age: 56 years Race: 2 Room: Bed: Height: Study Date: June 06, 2007 Patient status: Outpatient Weight: Access. #: [id number] POC: Ordering: Virginie Attending MD: Virginie Admitting MD: Virginie Study Conclusions: SUMMARY - Stress results : Duration of exercise was 7 min. Target heart ratewas achieved. The patient experienced chest pain during stress; pain resolved spontaneously. The patient experienced typical chest pain during stress; pain resolved spontaneously. The stress ECG was consistent with myocardial ischemia. - Echo image interpretation : Findings were suggestive ofstress-induced ischemia of the entire lateral wall. IMPRESSIONS - Abnormal study after maximal exercise with reproduction of symptoms. History and indications HISTORY - Chest pain status: chest pain. - Coronary artery disease risk factors: family history of premature coronary artery disease. REST ECG - Normal baseline ECG. Stress results Lux protocol Baseline HR bpm: 84 SBP mmH DBP mmH Symptoms: none ST change: none Rhythm/conduct: NSR, no ectopy Peak HR bpm: 152 SBP mmH DBP mmH Symptoms: moderate chest discomfort ST change: downsloping depression, 1.5-2 mm in II, III, aVF, V5 and V6 Rhythm/conduct: NSR, no ectopy Recovery 1 HR bpm: 91 SBP mmH DBP mmH Symptoms: none ST change: none Rhythm/conduct: NSR, no ectopy STRESS RESULTS - Duration of exercise was 7 min. - The patient exercised to protocol stage 3. - Maximal work rate was 10.1 METs. - Functional capacity was normal. - Maximal heart rate during stress was 152 bpm ( 92 % of maximalpredicted heart rate). - The heart rate response to stress was normal. - There was normal resting blood pressure with an appropriate responseto stress. - The rate-pressure product for the peak heart rate and blood pressurewas 50295. - The patient experienced chest pain during stress; pain resolved spontaneously. - The patient experienced typical chest pain during stress; painresolved spontaneously. - The stress test was terminated due to moderate chest discomfort. - There were no stress arrhythmias or conduction abnormalities. - The stress ECG was consistent with myocardial ischemia. Imaging data IMAGE PROPERTIES - The image quality was good. STRESS 2D ECHOCARDIOGRAPHIC RESULTS Baseline: - There was no diagnostic evidence for left ventricular regional wall motion abnormalities at baseline. ECHO IMPRESSIONS - Echocardiographic findings were positive for stress-induced ischemia. - Findings were suggestive of stress-induced ischemia of the entire lateral wall. Prepared and Electronically Authenticated Fito Stephens MD Confirmed June 06, 2007 13:38:23 us Liam Rubin MD ORDERABLES Final Result Performing Organization Address City/State/[facility] Co de Phone Number INTERFACE SYSTEM Refer to clinic/hospital department documented in this encounter Visit Diagnoses Diagnosis Chest pain, unspecified documented in this encounter Additional Health Concerns Infection Onset Date Last Indicated Resolved Time R/O COVID-19 12/24/2019 12/24/2019 12/26/2019 6:02 AM OUTSIDE RESIDENTIAL SALES PROFESSIONAL COVID-19 12/24/2019 12/24/2019 01/23/2020 1:16 AM OUTSIDE RESIDENTIAL SALES PROFESSIONAL documented as of this encounter Care Teams Minister Helper Relationship Specialty Start Date End Date Chandu Urbina MD PCP - General Family Practice 06/12/23 11/13/23 documented as of this encounter
--- OUTSIDE RECORDS SUMMARY | 2024-06-18 09:55 | XMS_ITS | Encounter Summary ---
Author Organization [facility] Address [address] [place] [address] Care Team Providers Care Heavy Equipment Supervisor Name Role Phone Chandu Urbina MD Primary Care Provider Unavail le Encounter Details Date Type Department Care Team (Latest Contact Info) Description 05/29/2008 Outpatient Historical [facility], [address] Liam Rubin MD NO ADDRESS ON FILE Urinary Tract Infection, Site not Specified Social History Tobacco Use Types Packs/Day Years Used Date Smoking Tobacco: Never Alcohol Use Standard Drinks/Week Comments Yes 0 (1 standard drink = 0.6 oz pur e alcohol) Sex and Gender Information Value Date Recorded Sex Assigned at Not on file Legal Sex Male 2:38 AM FIRE PROTECTION ENGINEERING TECHNICIAN Gender Identity Not on file Sexual Orientation Not on file documented as of this encounter Plan of Treatment Upcoming Encounters Date Type Department Care Team (Late st Contact Info) Description 07/15/2024 9:45 AM CDT Office Visit [facility] At [facility] [address] [facility] [address] [place] [address] Atif Stover MD [address] [facility] [address] [place] [address] 06/15/2025 9:15 AM CDT Office Visit [facility] [address] [place] [address] Al Ervin MD [address] [facility] [address] [facility] [place] [address] documented as of this encounter Visit Diagnoses Diagnosis Urinary tract infection, site not specified documented in this encounter Additional Health Concerns Infection Onset Date Last Indicated Resolved Time R/O COVID-19 12/24/2019 12/24/2019 12/26/2019 6:02 AM FIRE PROTECTION ENGINEERING TECHNICIAN COVID-19 12/24/2019 12/24/2019 01/23/2020 1:16 AM FIRE PROTECTION ENGINEERING TECHNICIAN documented as of this encounter Care Teams Heavy Equipment Supervisor Relationship Specialty Start Date End Date Chandu Urbina MD PCP - General Family Practice 06/12/23 11/13/23 documented as of this encounter
--- OUTSIDE RECORDS SUMMARY | 2024-06-18 09:55 | XMS_ITS | Encounter Summary ---
Author Organization [facility] Address [address] [place] [address] Care Team Providers Care Dry Ice Maker Name Role Phone Chandu Urbina MD Primary Care Provider Unavailab le Encounter Details Date Type Department Care Team (Late st Contact Info) Description 06/05/2007 Outpatient Historical [facility] Primary Care - [address] [place] [address] Liam Rubin MD NO ADDRESS ON FILE Social History Tobacco Use Types Packs/Day Years Used Date Smoking Tobacco: Never Assessed Sex and Gender Information Value Date Recorded Sex Assigned at Not on file Legal Sex Male 2:38 AM MIRROR INSPECTOR Gender Identity Not on file Sexual Orientation Not on file documented as of this encounter Plan of Treatment Upcoming Encounters Date Type Department Care Team (Late st Contact Info) Description 07/15/2024 9:45 AM CDT Office Visit [facility] [address] [facility] [address] [place] [address] Atif Stover MD [address] [facility] [address] [place] [address] 06/15/2025 9:15 AM CDT Office Visit [facility] Hepatology [address] [facility] [place] [address] Al Ervin MD [address] [facility] [address] [facility] [place] [address] documented as of this encounter Visit Diagnoses Not on filedocumented in this encounter Additional Health Concerns Infection Onset Date Last Indicated Resolved Time R/O COVID-19 12/24/2019 12/24/2019 12/26/2019 6:02 AM MIRROR INSPECTOR COVID-19 12/24/2019 12/24/2019 01/23/2020 1:16 AM MIRROR INSPECTOR documented as of this encounter Care Teams Dry Ice Maker Relationship Specialty Start Date End Date Chandu Urbina MD PCP - General Family Practice 06/12/23 11/13/23 documented as of this encounter
--- OUTSIDE RECORDS SUMMARY | 2024-06-18 09:56 | XMS_ITS | Encounter Summary ---
Author Organization [facility] Address [address] [place] [address] Care Team Providers Care Plumber Name Role Phone Chandu Urbina MD Primary Care Provider Unavailab le Encounter Details Date Type Department Care Team (Late st Contact Info) Description 11/09/2005 Outpatient Historical [facility] Primary Care - [address] [place] [address] Liam Rubin MD NO ADDRESS ON FILE Social History Tobacco Use Types Packs/Day Years Used Date Smoking Tobacco: Never Assessed Sex and Gender Information Value Date Recorded Sex Assigned at Not on file Legal Sex Male 2:38 AM SPOOL SORTER Gender Identity Not on file Sexual Orientation Not on file documented as of this encounter Plan of Treatment Upcoming Encounters Date Type Department Care Team (Late st Contact Info) Description 07/15/2024 9:45 AM CDT Office Visit [facility] Heart and V[facility] At [facility] [address] [facility] [address] [place] [address] Atif Stover MD [address] [facility] [address] [place] [address] 06/15/2025 9:15 AM CDT Office Visit [facility] Hepatology [address] [facility] [place] [address] Al Ervin MD [address] [facility] [address] [facility] [place] [address] documented as of this encounter Visit Diagnoses Not on filedocumented in this encounter Additional Health Concerns Infection Onset Date Last Indicated Resolved Time R/O COVID-19 12/24/2019 12/24/2019 12/26/2019 6:02 AM SPOOL SORTER COVID-19 12/24/2019 12/24/2019 01/23/2020 1:16 AM SPOOL SORTER documented as of this encounter Care Teams Plumber Relationship Specialty Start Date End Date Chandu Urbina MD PCP - General Family Practice 06/12/23 11/13/23 documented as of this encounter
--- OUTSIDE RECORDS SUMMARY | 2024-06-18 09:56 | XMS_ITS | Clinical Summary ---
Author Organization [facility] Address [address] [place] [address] Phone Care Team Providers Care Senior Enlisted Advisor Name Role Phone Unavailable Primary Care Provider Unavailabl e Allergies Active Allergy Reactions Criticality Noted Date Comments Hymenoptera Allergenic Extract Anaphylaxis High 05/13 Venom-Honey Bee Anaphylaxis High 08/19/2017 Venom-Wasp Anaphylaxis High 06/03/2015 Medications multivitamin (DAILY-SHEREE) Oral Tab 1 Every Day 300.00 0 8 Active aspirin (EDENILSON) 81 mg Oral TabIndications: CAD (coronary artery disease) Take 1 Tab by mouth daily. 1 Tab 0 9 Active fluticasone propionate (FLONASE) 50 mcg/spray [place], Suspension nasal inhalerIndicati ons:Middle ear effusion, bilateral Administer 2 Sprays in each nostril daily. 16 Gram 3 1 Active naproxen (NAPROSYN) 500 mg tablet Take 1 Tablet (500 mg) by mouth 2 times daily with meals. 60 Tablet 5 1 Active rosuvastatin (CRESTOR) 40 mg tablet take 1 tablet by mouth daily 90 Tablet 3 3 Active metoprolol succinate (TOPROL XL) 100 mg Extended Release 24 hour tablet TAKE 1 TABLET BY MOUTH EVERY 12 HOURS 200 Tablet 2 4 Active nitroglycerin (NITROSTAT) 0.4 mg Tablet, Sublingual Place 1 Tablet (0.4 mg) under tongue every 5 minutes as needed for Chest Pain. 25 Tablet 2 4 Active tamsulosin (FLOMAX) 0.4 mg capsule Take 2 Capsules (0.8 mg) by mouth daily. 200 Capsule 3 4 Active ezetimibe (ZETIA) 10 mg tablet take 1 tablet by mouth daily 100 Tablet 2 4 Active amLODIPine (NORVASC) 5 mg tablet take 1 tablet by mouth daily 100 Tablet 2 4 Active thiamine (VITAMIN B-1) 100 mg tablet Take 1 Tablet (100 mg) by mouth daily. 4 Active dutasteride (AVODART) 0.5 mg Capsule Take 1 Capsule by mouth daily. 5 Active Active Problems Patient Care Coordination No te Formatting of this note migh t be different from the original. Atif Stover MD--Test Operator ([facility] @ ) Problem Noted Date Diagnosed Date Hepatic steatosis 06/16/2024 Liver disease 06/16/2024 Metabolic dysfunction-associ ated steatotic liver disease (MASLD) 02/27/2024 Abnormal liver enzymes 02/25/2024 Lumbar spinal stenosis 06/01/2021 Facet arthritis, degenerative, lumbar spine 05/13 Coronary artery disease of n ative artery of [place] heart with stable angina pectoris 06/09/2019 Overview (11/21/2022): 2008 stent Mid Cx and RCA History of adenomatous polyp of colon 06/09/2019 Influenza vaccination declined 12/12/2017 Peripheral vascular disease of lower extremity 1 03/05/2014 Overview (01/03/2015): Right side. Claudication. Hypertension 03/01/2014 Hyperlipidemia 01/19/2013 Obesity 01/14/2012 Benign non-nodular prostatic hyperplasia with lower urinary tract symptoms 05/09/2007 Tobacco use disorder 05/08/2006 Overview (11/12/2008): Stopped 2008 Thoracic or lumbosacral neur itis or radiculitis, unspecified 05/08/2006 Hemangioma of unspecified site 11/08/2004 Resolved Problems Problem Noted Date Diagnosed Date Resolved Date Ankylosing spondylitis of cervical region 06/09/2019 06/01/2021 Closed fracture of wrist 08/11/201701/2023 Tubular adenoma of colon 06/24/2012 Left sided chest pain 06/11/20122020 s/p Angioplasty with Stents to RCA and LCx 06/1801/12/2009 08/01/2010 Hematuria 11/12/2008 05/25/2020 Overview (11/12/2008): Dr. Matias---workup negative Leg pain 11/10/2007 11/14/2009 CAD (coronary artery disease) 06/11/2007 11/22/2022 Overview (08/01/2010): stent rca and cx 06/18 Headache(784.0) 11/08/2006 08/01/2010 Special screening for malign ant neoplasm of prostate 05/08/2006 08/01/2010 Urinary frequency 05/09/2005 08/01/2010 Encounters Date Type Department Care Team Description 06/16/2024 8:40 AM CDT Office Visit [facility] Hepatology [address] [facility] [place] [address] Nely Cárdenas PA Hepatic steatosis (Primary Dx); Liver disease 06/16/2024 Orders Only [facility] Hepatology [address] [facility] [place] [address] Al Ervin MD Hepatic steatosis (Primary Dx); Liver disease; Abnormal liver enzymes; Metabolic dysfunction-associ ated steatotic liver disease (MASLD); Hepatic fibrosis, advanced fibrosis 06/15/2024 Telephone [facility] Hepatology [address] [facility] [place] [address] Nely Cárdenas PA Question 06/04/2024 Abstract [facility] Gastroenterology [address] [place] [address] Al Ervin MD 04/08/2024 Refill [facility] Primary Care - [facility] [address] [place] [address] Byron Sneed MD 04/01/2024 External Device Data ST[facility] ABSTRACTION Provider, Abstract 03/31/2024 External Device Data [facility] ABSTRACTION Provider, Abstract 03/26/[address] [address] Provider, Abstract from Last 3 Months Immunizations Immunization Administration Dates Next Due (PFIZER)(12 YR UP) COVID-19 VACCINE - EMERGENCY USE AUTHORIZATION, MRNA, [id number](PF) 30 MCG/0.3 ML IM SUSP 04/25/2020,04/04/2020 (PNEUMOVAX 23)(50 YRS UP) PN EUMOCOCCAL POLYSACCHARIDE (PPV23) 0.5 ML, IM 12/01/2019 (PREVNAR 20)(6 WKS UP) PNEUM OCOCCAL CONJUGATE VACCINE 20-VALENT (PCV20), POLYSACCHARIDE [id number] CONJUGATE, ADJUVANT 0.5 ML (PF) IM 05/31/2022 (Pfizer Bivalent)(12 Yr Up) COVID-19 Vaccine - Emergency Use Authorization, MRNA, Lnp-S(Pf) 30 Mcg/0.3 Ml Susp 10/31/2021 (TENIVAC)(7 YRS UP) TETANUS AND DIPHTHERIA TOXOIDS, ADSORBED (5 LF OF TETANUS TOXOID AND 2 LF OF DIPHTHERIA TOXOID), 0.5ML (PF), IM 11/09/2021 INFLUENZA VACCINE HIGH DOSE QUADRIVALENT 65 YR UP PF IM 11/22/2022,12/06/2021 INFLUENZA VACCINE QUADRIVALENT 6 MOS UP PF IM INFLUENZA VACCINE QUADRIVALENT ADJ 65 YR UP PF I M 11/26/2019 Influenza Vaccine High Dose 65+ Yrs IM 1 Influenza, Unspecified Formulation 11/26/2019 Family History Medical History Relation Name Comments High Cholesterol Father Heart Disease Mother High Cholesterol Mother Kidney Disease Mother on HD for sev eral years. Healthy Sister 1 Healthy Sister 2 Colon Cancer Neg Hx Relation Name Status Comments Father unaware Mother Sister 1 Alive Sister 2 Alive Social History Tobacco Use Types Packs/Day Years Used Date Smoking Tobacco: Former Cigarettes 1 21 1 04/05/1985 - 02/02/2007 Smokeless Tobacco: Never Tobacco Cessation:Counseling Given: Not Answered Comments:Occasional cigar Alcohol Use Standard Drinks/Week Comments Yes 1.7 (1 standard drink = 0.6 oz p ure alcohol) daily Feeling Safe Answer Date Recorded Are you in a relationship wi th someone who hurts you emotionally and/or physically? No 10/24/2023 Sex and Gender Information Value Date Recorded Sex Assigned at Not on file Legal Sex Male 2:38 AM APPLICATION INTEGRATION ARCHITECT Gender Identity Not on file Sexual Orientation Not on file Last Filed Vital Signs Vital Sign Reading Time Taken Comments Blood Pressure 132/86 06/16/2024 9:05 AM CDT Pulse 61 06/16/2024 9:05 AM CDT Temperature 35.8 C (96.5 F) 10/24/2023 7:58 AM CDT Respiratory Rate 16 10/24/2023 8:23 AM CDT Oxygen Saturation 98% 10/24/2023 8:23 AM CDT Inhaled Oxygen Concentration - - Weight 108.4 kg (239 lb) 06/16/2024 9:03 AM CDT Height 182.9 cm (6') 06/16/2024 9:03 AM CDT Body Mass Index 32.41 06/16/2024 9:03 AM CDT Plan of Treatment Upcoming Encounters Date Type Department Care Team (Late st Contact Info) Description 07/15/2024 9:45 AM CDT Office Visit [facility] Heart and Vascular At [facility] [address] [facility] [address] [place] [address] Atif Stover MD [address] [facility] [address] [place] [address] 06/15/2025 9:15 AM CDT Office Visit [facility] Hepatology [address] [facility] [place] [address] Al Ervin MD [address] [facility] [address] [facility] [place] [address] Health Maintenance Due Date Last Done Comments FIT-DNA Q 3 years 07/12/1996 Flex Sig/CT Colonography Q 5 years 07/12/1996 FIT/FOBT Q 1 year 11/29/2000 11/30/1999, 12/01/1998 ZOSTER VACCINE (1 of 2) 07/12/2001 RSV VACCINE (60+ or ) (1 - Risk 60-74 years 1-dose series) 2011 Abdominal Aortic Aneurysm (A AA) Screening 07/12/2016 DTAP/TDAP/TD VACCINES (1 - Tdap) 11/10/2021 11/10/19 INFLUENZA VACCINE (#1) 2023 , 12/06/2021, 12/06/2020, Additional history exists COVID-19 Vaccine ( - 2023-2 5 season) 2023 10/31/2021, 04/25/2020, 04/04/2020 COLORECTAL SCREENING 10/23/2030 10/24/2023, 10/24/2023, 01/28/2018, Additional history exists Colorectal Cancer Screening 10/23/2030 PNEUMOCOCCAL VACCINE 50+ YEARS Completed 05/31/2022 , 12/01/2019 Procedures Procedure Name Priority Date/Time Associated Diagnosis Comments US ELASTOGRAPHY Routine 06/04/2024 Hepatic steatosis Liver disease Abnormal liver enzymes Metabolic dysfunction-associa hugo steatotic liver disease (MASLD) Hepatic fibrosis, advanced fibrosis COLONOSCOPY REPORT 10/24/2023 8: 01 AM CDT from Last 3 Months or Most Recently Relevant to Health Maintenance Results * US ELASTOGRAPHY (06/04/2024) Anatomical Region Laterality Modality Abdomen Ultrasound us Al Ervin MD US ORDERABLES Final Result * COLONOSCOPY REPORT (10/24/2023 8:01 AM CDT) Narrative Procedure Note Anival Cast DO - 10/24/2023 8:01 AM CDT [facility] Endoscopy Patient Name: Ayden Gray Procedure Date: 10/24/2023 Date of : 1950 Attending MD: Anival Cast MD, Procedure: Colonoscopy Indications: High risk colon cancer surveillance: Personal history of non-advanced adenoma, Last colonoscopy: January 2018 Providers: Anival Cast MD Referring MD: Chandu Urbina Medicines: Monitored Anesthesia Care Complications: No immediate complications. Procedure: Informed consent was obtained for the procedure, including moderate sedation after risks were discussed. Based on the pre-procedure assessment, including review of the patient's medical history, medications, allergies, and review of systems, the patient was deemed to be an appropriate candidate for sedation. A timeout was performed. Continuous ECG monitoring, pulse oximetry, blood pressure monitoring, and direct observation were performed. The Colonoscope was introduced through the anus and advanced to the terminal ileum. The colonoscopy was performed without difficulty. The patient tolerated the procedure well. The quality of the bowel preparation was good. Anatomical landmarks were photographed. Estimated Blood Loss: Estimated blood loss was minimal. Findings: The perianal examination was normal. The colon (entire examined portion) appeared normal. Retroflexion in the right colon was performed. The terminal ileum appeared normal. Non-bleeding hemorrhoids were found during retroflexion. Impression: - The entire examined colon is normal. - The examined portion of the ileum was normal. - Non-bleeding hemorrhoids. - No specimens collected. Recommendation: - Repeat colonoscopy in 7 years for surveillance. Anival Cast MD 10/24/2023 8:01:28 AM This report has been signed electronically. Number of Addenda: [phone] ; [place] [address] Anival Cast DO GI PROCEDURE ORDERABLES Fin al Result from Last 3 Months or Most Recently Relevant to Health Maintenance Insurance [facility] [id number] [facility] [id number] Advance Directives For more information, please contact: [phone] * Full Code (Latest Code Status on File) Date Activated Date Inactivated Comments 10/24/2023 7:10 AM 10/24/2023 11:14 AM * Full Code Date Activated Date Inactivated Comments 01/28/2018 7:43 AM 01/28/2018 11:30 AM
--- OUTSIDE RECORDS SUMMARY | 2024-06-18 09:56 | XMS_ITS | Encounter Summary ---
Author Organization [facility] Address [address] [place] [address] Care Team Providers Care Event Mgr Name Role Phone Chandu Urbina MD Primary Care Provider Unavailab le Encounter Details Date Type Department Care Team (Late st Contact Info) Description 05/09/2005 Outpatient Historical [facility] Primary Care - [address] [place] [address] Liam Rubin MD NO ADDRESS ON FILE Social History Tobacco Use Types Packs/Day Years Used Date Smoking Tobacco: Never Assessed Sex and Gender Information Value Date Recorded Sex Assigned at Not on file Legal Sex Male 2:38 AM TEXTILE SCREEN MAKER Gender Identity Not on file Sexual Orientation Not on file documented as of this encounter Plan of Treatment Upcoming Encounters Date Type Department Care Team (Late st Contact Info) Description 07/15/2024 9:45 AM CDT Office Visit [facility] Heart and Vascular At [facility] [address] [facility] [address] [place] [address] Atif Stover MD [address] [facility] [address] [place] [address] 06/15/2025 9:15 AM CDT Office Visit [facility] Hepatology [address] [facility] [place] [address] Al Ervin MD [address] [facility] [address] [facility] [place] [address] documented as of this encounter Visit Diagnoses Not on filedocumented in this encounter Additional Health Concerns Infection Onset Date Last Indicated Resolved Time R/O COVID-19 12/24/2019 12/24/2019 12/26/2019 6:02 AM TEXTILE SCREEN MAKER COVID-19 12/24/2019 12/24/2019 01/23/2020 1:16 AM TEXTILE SCREEN MAKER documented as of this encounter Care Teams Event Mgr Relationship Specialty Start Date End Date Chandu Urbina MD PCP - General Family Practice 06/12/23 11/13/23 documented as of this encounter
--- OUTSIDE RECORDS SUMMARY | 2024-06-18 09:56 | XMS_ITS | Encounter Summary ---
Author Organization [facility] Address [address] [place] [address] Care Team Providers Care Composite Bond Worker Name Role Phone Chandu Urbina MD Primary Care Provider Unavailab le Encounter Details Date Type Department Care Team (Late st Contact Info) Description 05/08/2006 Outpatient Historical [facility] Primary Care - [address] [place] [address] Liam Rubin MD NO ADDRESS ON FILE Social History Tobacco Use Types Packs/Day Years Used Date Smoking Tobacco: Never Assessed Sex and Gender Information Value Date Recorded Sex Assigned at Not on file Legal Sex Male 2:38 AM CUSTOMER SPECIALIST Gender Identity Not on file Sexual Orientation Not on file documented as of this encounter Plan of Treatment Upcoming Encounters Date Type Department Care Team (Late st Contact Info) Description 07/15/2024 9:45 AM CDT Office Visit [facility] Heart and Vascular At [facility] [address] [facility] [address] [address] Atif Stover MD [address] [facility] [address] [address] 06/15/2025 9:15 AM CDT Office Visit [facility] Hepatology [address] [facility] [address] Al Ervin MD [address] [facility] [address] [facility] [place] [address] documented as of this encounter Visit Diagnoses Not on filedocumented in this encounter Additional Health Concerns Infection Onset Date Last Indicated Resolved Time R/O COVID-19 12/24/2019 12/24/2019 12/26/2019 6:02 AM CUSTOMER SPECIALIST COVID-19 12/24/2019 12/24/2019 01/23/2020 1:16 AM CUSTOMER SPECIALIST documented as of this encounter Care Teams Composite Bond Worker Relationship Specialty Start Date End Date Chandu Urbina MD PCP - General Family Practice 06/12/23 11/13/23 documented as of this encounter
--- OUTSIDE RECORDS SUMMARY | 2024-06-18 09:56 | XMS_ITS | Encounter Summary ---
Author Organization [facility] Address [address] [place] [address] Care Team Providers Care Nurse Advocate Name Role Phone Chandu Urbina MD Primary Care Provider Unavailab le Encounter Details Date Type Department Care Team (Late st Contact Info) Description 11/09/2005 Outpatient Historical [facility] Primary Care - [address] [place] [address] Liam Rubin MD NO ADDRESS ON FILE Social History Tobacco Use Types Packs/Day Years Used Date Smoking Tobacco: Never Assessed Sex and Gender Information Value Date Recorded Sex Assigned at Not on file Legal Sex Male 2:38 AM SUBSTATION MANAGER Gender Identity Not on file Sexual Orientation Not on file documented as of this encounter Plan of Treatment Upcoming Encounters Date Type Department Care Team (Late st Contact Info) Description 07/15/2024 9:45 AM CDT Office Visit [facility] Heart and Vascular At [facility] [address] [facility] [place] [address] Atif Stover MD [address] [facility] [address] [place] [address] 06/15/2025 9:15 AM CDT Office Visit [facility] Hepatology [address] [facility] [place] [address] Al Ervin MD [address] [facility] [address] [facility] [place] [address] documented as of this encounter Visit Diagnoses Not on filedocumented in this encounter Additional Health Concerns Infection Onset Date Last Indicated Resolved Time R/O COVID-19 12/24/2019 12/24/2019 12/26/2019 6:02 AM SUBSTATION MANAGER COVID-19 12/24/2019 12/24/2019 01/23/2020 1:16 AM SUBSTATION MANAGER documented as of this encounter Care Teams Nurse Advocate Relationship Specialty Start Date End Date Chandu Urbina MD PCP - General Family Practice 06/12/23 11/13/23 documented as of this encounter
--- OUTSIDE RECORDS SUMMARY | 2024-06-18 09:56 | XMS_ITS | Encounter Summary ---
Author Organization [facility] Address [address] [place] [address] Care Team Providers Care Mannequin Mold Maker Name Role Phone Chandu Urbina MD Primary Care Provider Unavailab le Encounter Details Date Type Department Care Team (Late st Contact Info) Description 11/08/2006 Orders Only [facility] Primary Care - [address] [place] [address] Liam Rubin MD NO ADDRESS ON FILE Social History Tobacco Use Types Packs/Day Years Used Date Smoking Tobacco: Never Assessed Sex and Gender Information Value Date Recorded Sex Assigned at Not on file Legal Sex Male 2:38 AM VAMP THROATER Gender Identity Not on file Sexual Orientation Not on file documented as of this encounter Progress Notes * Liam Rubin MD - 06/27/2007 7:04 PM CDT TEMPERATURE: 98.6??f Oral WEIGHT: 208lbs BLOOD PRESSURE: 140/84 Right Arm Sitting NURSE NAME: Regina Duarte K ALLERGIES: No known drug allergies. MEDICATIONS: Medication list current. HISTORY: HISTORY: 305.1-TOBACCO ABUSE The patient is in the process of weaning off smoking, continues to smoke 1 packof cigarettes per day. The patient has been using tobacco for less than 1 year. HISTORY OF PRESENT ILLNESS: HEADACHE: Frequency is approximately daily. The duration is variable. The headache is poorly localized. The patient has symptoms of visual changes. There is pain present that is described as dull. Ithas a positional and time component on reclining that is intriguing. PHYSICAL EXAMINATION: CONSTITUTIONAL: GENERAL APPEARANCE: Healthy appearing patient in no distress. EYES: FUNDUSCOPIC EXAM: Ophthalmoscopic examination shows the fundi to be normal. The optic disc are flatand of normal size. There are no hemorrhages or exudates. NECK/THYROID: Trachea midline. No thyroid enlargement, tenderness, or mass. No supraclavicular or cervical adenopathy. RESPIRATORY: Clear to auscultation and percussion. Normal respiratory effort. CARDIOVASCULAR: CARDIAC: Regular rhythm. No murmurs, rubs, or gallops. GASTROINTESTINAL: ABDOMEN: Soft, non-tender, without masses. Bowel sounds active. LIVER/SPLEEN/KIDNEY: No hepatosplenomegaly, tenderness or nodularity. Kidneys not palpable. ASSESSMENT/PLAN: 272.4-HYPERLIPIDEMIA ASSESSMENT: Will not change medication, continue to monitor for complications. The patient is attempting to follow a low cholesterol diet. Regular aerobic exercise was encouraged. Will check laboratory. LAB ORDERS: Order number: [id number] Test Ordered: LIPID PANEL 1078 Order number: [id number] Test Ordered: ALT 1294 305.1-TOBACCO ABUSE ASSESSMENT: The patient continues to smoke and was strongly advised to discontinue tobacco productscompletely. Will not change medication, continue to monitor for complications. MEDICATIONS: CHANTIX STARTING MONTH AURORA ORAL MISCELLANEOUS 0.5 MG X 11 & 1 MG X 42 PACKS, use as directed, 1Dispensed, status: NEW PRESCRIPTION, 11/08/2006. CHANTIX CONTINUING MONTH AURORA ORAL TABLET 1 MG PACKS, use as directed, 1 Dispensed, 1 Fills, status:NEW PRESCRIPTION, 11/08/2006. 784.0-HEADACHE CAuse is uncertain and dits persistence warrants further evaluation. LAB ORDERS: Order number: [id number] Test Ordered: CT HEAD WITH & W/O CONTRAST Order number: [id number] Test Ordered: XRAY C SPINES, ROUTINE (5 VIEWS) W/OBL Order number: [id number] Test Ordered: CREATININE 1790 RETURN VISIT : pending results. Electronically Signed by: Liam Rubin MD on Sunday, November 12, 2006 documented in this encounter Plan of Treatment Upcoming Encounters Date Type Department Care Team (Late st Contact Info) Description 07/15/2024 9:45 AM CDT Office Visit [facility] Heart and Vascular At [place] [address] [place] [address] Atif [place] MD [address] [place] [address] 06/15/2025 9:15 AM CDT Office Visit [facility] Hepatology [address] [place] [phone] Al Ervin MD [address] [facility] [place] [address] documented as of this encounter Visit Diagnoses Not on filedocumented in this encounter Additional Health Concerns Infection Onset Date Last Indicated Resolved Time R/O COVID-19 12/24/2019 12/24/2019 12/26/2019 6:02 AM VAMP THROATER COVID-19 12/24/2019 12/24/2019 01/23/2020 1:16 AM VAMP THROATER documented as of this encounter Care Teams Mannequin Mold Maker Relationship Specialty Start Date End Date Chandu Urbina MD PCP - General Family Practice 06/12/23 11/13/23 documented as of this encounter
--- OUTSIDE RECORDS SUMMARY | 2024-06-18 09:56 | XMS_ITS | Encounter Summary ---
Author Organization [facility] Address [address] [place] [address] Care Team Providers Care Tubing Tester Name Role Phone Chandu Urbina MD Primary Care Provider Unavailab le Encounter Details Date Type Department Care Team (Late st Contact Info) Description 02/08/2021 Digital Self COVID-1 9 Monitoring [facility] ABSTRACTION Provider, Abstract NO ADDRESS ON FILE Social History Tobacco Use Types Packs/Day Years Used Date Smoking Tobacco: Former Cigarettes 1 21 1 04/05/1985 - 02/02/2007 Smokeless Tobacco: Never Alcohol Use Standard Drinks/Week Comments Yes 1.7 (1 standard drink = 0.6 oz p ure alcohol) daily Sex and Gender Information Value Date Recorded Sex Assigned at Not on file Legal Sex Male 2:38 AM DRY BOX TENDER Gender Identity Not on file Sexual Orientation Not on file documented as of this encounter Plan of Treatment Upcoming Encounters Date Type Department Care Team (Late st Contact Info) Description 07/15/2024 9:45 AM CDT Office Visit [facility] Heart and Vascular At [facility] [address] [address] [address] [place] [address] Atif Stover MD [address] [facility] [place] [address] 06/15/2025 9:15 AM CDT Office Visit [facility] Hepatology [address] [place] [address] Al Ervin MD [address] [facility] [place] [phone] documented as of this encounter Visit Diagnoses Not on filedocumented in this encounter Care Teams Tubing Tester Relationship Specialty Start Date End Date Chandu Urbina MD PCP - General Family Practice 06/12/23 11/13/23 documented as of this encounter
--- OUTSIDE RECORDS SUMMARY | 2024-06-18 09:56 | XMS_ITS | Encounter Summary ---
Author Organization [facility] Address [address] [place] [address] Care Team Providers Care Bearing Maker Name Role Phone Chandu Urbina MD Primary Care Provider Unavailab le Encounter Details Date Type Department Care Team (Late st Contact Info) Description 05/09/2006 Orders Only [facility] Primary Care - [facility] [address] [place] [address] [address] [place] [address] Liam Rubin MD NO ADDRESS ON FILE Social History Tobacco Use Types Packs/Day Years Used Date Smoking Tobacco: Never Assessed Sex and Gender Information Value Date Recorded Sex Assigned at Not on file Legal Sex Male 2:38 AM TUBE DRAWING SUPERVISOR Gender Identity Not on file Sexual Orientation Not on file documented as of this encounter Progress Notes * Liam Rubin MD - 07/04/2007 2:50 PM CDT [facility] LIAM RUBIN MD [address] [place] [address] May 09, 2006 MIRANDA MORALES [address] [place] [address] Dear Miranda: Please find enclosed your recent test results along with an explanation. LIVER ENZYMES - normal. CHOLESTEROL - high. CHOLESTEROL RESULT: 222 LDL (bad cholesterol) - slightly high. LDL RESULT: 140 PSA - normal. PSA RESULT: 0.5 RECOMMENDATIONS: Cholesterol is just a bit higher. I would like to push the zocor up to 40 to try to gt more benefit from it. A new prescription is enclosed. Sincerely yours, LIAM RUBIN MD documented in this encounter Plan of Treatment Upcoming Encounters Date Type Department Care Team (Late st Contact Info) Description 07/15/2024 9:45 AM CDT Office Visit [facility] Heart and Vascular At [facility] [address] [facility] [facility] [address] [place] [phone] Atif Stover MD [address] [facility] [facility] [place] [phone] 06/15/2025 9:15 AM CDT Office Visit [facility] Hepatology [address] [place] [address] Al Ervin MD [address] [facility] [place] [address] documented as of this encounter Visit Diagnoses Not on filedocumented in this encounter Additional Health Concerns Infection Onset Date Last Indicated Resolved Time R/O COVID-19 12/24/2019 12/24/2019 12/26/2019 6:02 AM TUBE DRAWING SUPERVISOR COVID-19 12/24/2019 12/24/2019 01/23/2020 1:16 AM TUBE DRAWING SUPERVISOR documented as of this encounter Care Teams Bearing Maker Relationship Specialty Start Date End Date Chandu Urbina MD PCP - General Family Practice 06/12/23 11/13/23 documented as of this encounter
--- OUTSIDE RECORDS SUMMARY | 2024-06-18 09:56 | XMS_ITS | Encounter Summary ---
Author Organization [facility] Address [address] [place] [address] Care Team Providers Care Steam Shovel Operating Engineer Name Role Phone Chandu Urbina MD Primary Care Provider Unavailab le Encounter Details Date Type Department Care Team (Late st Contact Info) Description 09/06/2005 Outpatient Historical [facility] Primary Care - [address] [place] [address] Liam Rubin MD NO ADDRESS ON FILE Social History Tobacco Use Types Packs/Day Years Used Date Smoking Tobacco: Never Assessed Sex and Gender Information Value Date Recorded Sex Assigned at Not on file Legal Sex Male 2:38 AM COMMANDING OFFICER GARAGE Gender Identity Not on file Sexual Orientation Not on file documented as of this encounter Last Filed Vital Signs Vital Sign Reading Time Taken Comments Blood Pressure 140/86 09/06/2005 3:00 PM CDT Pulse - - Temperature 36.7 C (98 F) 09/06/2005 3:00 PM CDT Respiratory Rate - - Oxygen Saturation - - Inhaled Oxygen Concentration - - Weight 97.5 kg (215 lb) 09/06/2005 3:00 PM CDT Height - - Body Mass Index - - documented in this encounter Plan of Treatment Upcoming Encounters Date Type Department Care Team (Late st Contact Info) Description 07/15/2024 9:45 AM CDT Office Visit [facility] Heart and Vascular At [address] [place] [address] Atif Stover MD [address] [place] [address] [address] [place] [address] 06/15/2025 9:15 AM CDT Office Visit [facility] Hepatology [address] [place] [address] Al Ervin MD [address] [facility] [place] [address] documented as of this encounter Visit Diagnoses Not on filedocumented in this encounter Additional Health Concerns Infection Onset Date Last Indicated Resolved Time R/O COVID-19 12/24/2019 12/24/2019 12/26/2019 6:02 AM COMMANDING OFFICER GARAGE COVID-19 12/24/2019 12/24/2019 01/23/2020 1:16 AM COMMANDING OFFICER GARAGE documented as of this encounter Care Teams Steam Shovel Operating Engineer Relationship Specialty Start Date End Date Chandu Urbina MD PCP - General Family Practice 06/12/23 11/13/23 documented as of this encounter
--- OUTSIDE RECORDS SUMMARY | 2024-06-18 09:56 | XMS_ITS | Encounter Summary ---
Author Organization [facility] Address [address] [place] [address] Care Team Providers Care Dry Charge Process Attendant Name Role Phone Chandu Urbina MD Primary Care Provider Unavailab le Encounter Details Date Type Department Care Team (Late st Contact Info) Description 05/09/2007 Outpatient Historical [facility] Primary Care - [address] [place] [address] Liam Rubin MD NO ADDRESS ON FILE Social History Tobacco Use Types Packs/Day Years Used Date Smoking Tobacco: Never Assessed Sex and Gender Information Value Date Recorded Sex Assigned at Not on file Legal Sex Male 2:38 AM MUSIC SPECIALIST Gender Identity Not on file Sexual Orientation Not on file documented as of this encounter Plan of Treatment Upcoming Encounters Date Type Department Care Team (Late st Contact Info) Description 07/15/2024 9:45 AM CDT Office Visit [facility] Heart and Vascular At [facility] [address] [place] [address] Atif Stover MD [address] [place] [address] 06/15/2025 9:15 AM CDT Office Visit [facility] Hepatology [address] [facility] [address] [place] [address] Al Ervin MD [address] [facility] [place] [address] documented as of this encounter Visit Diagnoses Not on filedocumented in this encounter Additional Health Concerns Infection Onset Date Last Indicated Resolved Time R/O COVID-19 12/24/2019 12/24/2019 12/26/2019 6:02 AM MUSIC SPECIALIST COVID-19 12/24/2019 12/24/2019 01/23/2020 1:16 AM MUSIC SPECIALIST documented as of this encounter Care Teams Dry Charge Process Attendant Relationship Specialty Start Date End Date Chandu Urbina MD PCP - General Family Practice 06/12/23 11/13/23 documented as of this encounter
--- OUTSIDE RECORDS SUMMARY | 2024-06-18 09:56 | XMS_ITS | Encounter Summary ---
Author Organization [facility] Address [address] [place] [address] Care Team Providers Care Lithographers Printer Name Role Phone Chandu Urbina MD Primary Care Provider Unavailab le Encounter Details Date Type Department Care Team (Late st Contact Info) Description 11/08/2006 Outpatient Historical [facility] Primary Care - [address] [place] [address] Liam Rubin MD NO ADDRESS ON FILE Social History Tobacco Use Types Packs/Day Years Used Date Smoking Tobacco: Never Assessed Sex and Gender Information Value Date Recorded Sex Assigned at Not on file Legal Sex Male 2:38 AM BRAND INSPECTOR Gender Identity Not on file Sexual Orientation Not on file documented as of this encounter Plan of Treatment Upcoming Encounters Date Type Department Care Team (Late st Contact Info) Description 07/15/2024 9:45 AM CDT Office Visit [facility] Heart and Vascular At [facility] [address] [facility] [facility] [address] [place] [address] Atif Stover MD [address] [facility] [address] [place] [address] 06/15/2025 9:15 AM CDT Office Visit [facility] Hepatology [address] [facility] [address] [place] [address] Al Ervin MD [address] [facility] [address] [facility] [place] [address] documented as of this encounter Visit Diagnoses Not on filedocumented in this encounter Additional Health Concerns Infection Onset Date Last Indicated Resolved Time R/O COVID-19 12/24/2019 12/24/2019 12/26/2019 6:02 AM BRAND INSPECTOR COVID-19 12/24/2019 12/24/2019 01/23/2020 1:16 AM BRAND INSPECTOR documented as of this encounter Care Teams Lithographers Printer Relationship Specialty Start Date End Date Chandu Urbina MD PCP - General Family Practice 06/12/23 11/13/23 documented as of this encounter
--- OUTSIDE RECORDS SUMMARY | 2024-06-18 09:56 | XMS_ITS | Encounter Summary ---
Author Organization [facility] Address [address] [place] [address] Care Team Providers Care Home Health Clinician Name Role Phone Chandu Urbina MD Primary [...] on file Legal Sex Male 2:38 AM BREW HOUSE SUPERVISOR Gender Identity Not on file Sexual Orientation Not on file documented as of this encounter Plan of Treatment Upcoming Encounters Date Type Department Care Team (Late st Contact Info) Description 07/15/2024 9:45 AM CDT Office Visit [facility] Heart and Vascular At [facility] [address] [facility] [address] [place] [address] Atif Stover MD [address] [facility] [address] [place] [address] 06/15/2025 9:15 AM CDT Office Visit [facility] Hepatology [address] [place] [address] Al Ervin MD [address] [facility] Hepat[place] [phone] documented as of this encounter Visit Diagnoses Not on filedocumented in this encounter Care Teams Home Health Clinician Relationship Specialty Start Date End Date Chandu Urbina MD PCP - General Family Practice 06/12/23 11/13/23 documented as of this encounter
--- OUTSIDE RECORDS SUMMARY | 2024-06-18 09:56 | XMS_ITS | Encounter Summary ---
Author Organization [facility] Address [address] [place] [address] Care Team Providers Care Circle Edger Name Role Phone Chandu Urbina MD Primary Care Provider Unavailab le Encounter Details Date Type Department Care Team (Latest Contact Info) Description 11/08/2006 Outpatient Historical [facility] Primary Care - [facility] [address] [place] [address] Liam Rubin MD NO ADDRESS ON FILE Other and Unspecified Hyperlipidemia (Primary Dx) Social History Tobacco Use Types Packs/Day Years Used Date Smoking Tobacco: Never Assessed Sex and Gender Information Value Date Recorded Sex Assigned at Not on file Legal Sex Male 2:38 AM QUALITY COORDINATOR Gender Identity Not on file Sexual Orientation Not on file documented as of this encounter Plan of Treatment Upcoming Encounters Date Type Department Care Team (Late st Contact Info) Description 07/15/2024 9:45 AM CDT Office Visit [facility] Heart and Vascular At [facility] [address] [facility] [address] [place] [address] Atif Stover MD [address] [facility] [address] [place] [address] 06/15/2025 9:15 AM CDT Office Visit [facility] Hepatology [address] [place] [address] Al Ervin MD [address] [facility] [place] [address] documented as of this encounter Procedures Procedure Name Priority Date/Time Associated Diagnosis Comments ALT Routine 11/08/2006 10:39 AM CDT CREATININE Routine 11/08/2006 10:39 AM CDT LIPID PANEL Routine 11/08/2006 10:39 AM CDT documented in this encounter Results * CREATININE (11/08/2006 10:39 AM CDT) CREATININE 1.07 0.67 - 1.17 mg/dL INTERFACE SYSTEM 11/08/2006 10:3 9 AM CDT us Liam Rubin MD CHEMISTRY ORDERABLES Edited Performing Organization Address City/[facility] Co de Phone Number INTERFACE SYSTEM Refer to clinic/hospital department * ALT (11/08/2006 10:39 AM CDT) ALT 22 0 - 41 U/L INTERFACE SYSTEM 11/08/2006 10:3 9 AM CDT us Liam Rubin MD CHEMISTRY ORDERABLES Edited INTERFACE SYSTEM Refer to clinic/hospital department * (ABNORMAL) LIPID PANEL (11/08/2006 10:39 AM CDT) CHOLESTEROL 180 100 - 199 mg/dL INTERFACE SYSTEM TRIGLYCERIDE 114 10 - 149 mg/dL INTERFACE SYSTEM HDL 48 40 - 59 mg/dL INTERFACE SYSTEM CHOL/HDL RATIO 3.8 2.0 - 5.0 INTER FACE SYSTEM LDL CALCULATED 109(H) <=99 mg/dL INTERFACE SYSTEM LIPID PANEL COMMENT See Below INTERFACE SYSTEM Comment: The adult ATP and pediatric NCEP classifications for lipids are available on the [facility] Intranet at: [email or web address] Select: Lab Policies and Procedures,Current Select: Lipid Panel Interpretation 11/08/2006 10:3 9 AM CDT us Liam Rubin MD CHEMISTRY ORDERABLES Edited INTERFACE SYSTEM Refer to clinic/hospital department documented in this encounter Visit Diagnoses Diagnosis Other and unspecified hyperlipidemia- Primary documented in this encounter Additional Health Concerns Infection Onset Date Last Indicated Resolved Time R/O COVID-19 12/24/2019 12/24/2019 12/26/2019 6:02 AM QUALITY COORDINATOR COVID-19 12/24/2019 12/24/2019 01/23/2020 1:16 AM QUALITY COORDINATOR documented as of this encounter Care Teams Circle Edger Relationship Specialty Start Date End Date Chandu Urbina MD PCP - General Family Practice 06/12/23 11/13/23 documented as of this encounter
--- OUTSIDE RECORDS SUMMARY | 2024-06-18 09:56 | XMS_ITS | Encounter Summary ---
Author Organization [facility] Address [address] [place] [address] Care Team Providers Care Preschool Program Director Name Role Phone Chandu Urbina MD Primary Care Provider Unavailab le Encounter Details Date Type Department Care Team (Late st Contact Info) Description 05/09/2005 Outpatient Historical [facility] Primary Care - [address] [place] [address] Liam Rubin MD NO ADDRESS ON FILE Social History Tobacco Use Types Packs/Day Years Used Date Smoking Tobacco: Never Assessed Sex and Gender Information Value Date Recorded Sex Assigned at Not on file Legal Sex Male 2:38 AM ICT PROGRAMMER Gender Identity Not on file Sexual Orientation Not on file documented as of this encounter Plan of Treatment Upcoming Encounters Date Type Department Care Team (Late st Contact Info) Description 07/15/2024 9:45 AM CDT Office Visit [facility] Heart and Vascular At [facility] [address] [facility] [address] [place] [address] Atif Stover MD [address] [facility] [address] [place] [address] 06/15/2025 9:15 AM CDT Office Visit [facility] Hepatology [address] [facility] [place] [address] Al Ervin MD [address] [facility] [address] [facility] [place] [address] documented as of this encounter Visit Diagnoses Not on filedocumented in this encounter Additional Health Concerns Infection Onset Date Last Indicated Resolved Time R/O COVID-19 12/24/2019 12/24/2019 12/26/2019 6:02 AM ICT PROGRAMMER COVID-19 12/24/2019 12/24/2019 01/23/2020 1:16 AM ICT PROGRAMMER documented as of this encounter Care Teams Preschool Program Director Relationship Specialty Start Date End Date Chandu Urbina MD PCP - General Family Practice 06/12/23 11/13/23 documented as of this encounter
--- OUTSIDE RECORDS SUMMARY | 2024-06-18 09:56 | XMS_ITS | Encounter Summary ---
Author Organization [facility] Address [address] [place] [address] Care Team Providers Care Soft Tile Setter Name Role Phone Chandu Urbina MD Primary Care Provider Unavailab le Encounter Details Date Type Department Care Team (Late st Contact Info) Description 05/08/2006 Outpatient Historical [facility] Primary Care - [address] [place] [address] Liam Rubin MD NO ADDRESS ON FILE Social History Tobacco Use Types Packs/Day Years Used Date Smoking Tobacco: Never Assessed Sex and Gender Information Value Date Recorded Sex Assigned at Not on file Legal Sex Male 2:38 AM PATIENT REGISTRATION SPECIALIST Gender Identity Not on file Sexual Orientation Not on file documented as of this encounter Plan of Treatment Upcoming Encounters Date Type Department Care Team (Late st Contact Info) Description 07/15/2024 9:45 AM CDT Office Visit [facility] Heart and Vascular At [facility] [address] [place] [address] Atif Stover MD [address] [place] [address] 06/15/2025 9:15 AM CDT Office Visit [facility] Hepatology [address] [place] [address] Al Ervin MD [address] [facility] [place] [address] documented as of this encounter Visit Diagnoses Not on filedocumented in this encounter Additional Health Concerns Infection Onset Date Last Indicated Resolved Time R/O COVID-19 12/24/2019 12/24/2019 12/26/2019 6:02 AM PATIENT REGISTRATION SPECIALIST COVID-19 12/24/2019 12/24/2019 01/23/2020 1:16 AM PATIENT REGISTRATION SPECIALIST documented as of this encounter Care Teams Soft Tile Setter Relationship Specialty Start Date End Date Chandu Urbina MD PCP - General Family Practice 06/12/23 11/13/23 documented as of this encounter
--- OUTSIDE RECORDS SUMMARY | 2024-06-18 09:56 | XMS_ITS | Encounter Summary ---
Author Organization [facility] Address [address] [place] [address] Care Team Providers Care Career And Transition Teacher Name Role Phone Chandu Urbina MD Primary Care Provider Unavailab le Encounter Details Date Type Department Care Team (Late st Contact Info) Description 05/09/2005 Outpatient Historical [facility] Primary Care - [address] [place] [address] Liam Rubin MD NO ADDRESS ON FILE Social History Tobacco Use Types Packs/Day Years Used Date Smoking Tobacco: Never Assessed Sex and Gender Information Value Date Recorded Sex Assigned at Not on file Legal Sex Male 2:38 AM PUBLIC HEALTH MICROBIOLOGIST Gender Identity Not on file Sexual Orientation Not on file documented as of this encounter Plan of Treatment Upcoming Encounters Date Type Department Care Team (Late st Contact Info) Description 07/15/2024 9:45 AM CDT Office Visit [facility] Heart and Vascular At [facility] [address] [place] [address] Atif Stover MD [address] [facility] [facility] [address] [address] [place] [address] 06/15/2025 9:15 AM CDT Office Visit [facility] Hepatology [address] [facility] [place] [address] Al Ervin MD [address] [facility] [address] [facility] [place] [address] documented as of this encounter Visit Diagnoses Not on filedocumented in this encounter Additional Health Concerns Infection Onset Date Last Indicated Resolved Time R/O COVID-19 12/24/2019 12/24/2019 12/26/2019 6:02 AM PUBLIC HEALTH MICROBIOLOGIST COVID-19 12/24/2019 12/24/2019 01/23/2020 1:16 AM PUBLIC HEALTH MICROBIOLOGIST documented as of this encounter Care Teams Career And Transition Teacher Relationship Specialty Start Date End Date Chandu Urbina MD PCP - General Family Practice 06/12/23 11/13/23 documented as of this encounter
--- OUTSIDE RECORDS SUMMARY | 2024-06-18 09:56 | XMS_ITS | Encounter Summary ---
Author Organization [facility] Address [address] [place] [address] Care Team Providers Care Drafter Mechanical Name Role Phone Chandu Urbina MD Primary Care Provider Unavailab le Encounter Details Date Type Department Care Team (Latest Contact Info) Description 11/09/2005 Outpatient Historical [facility] Primary Care - [facility] [address] [place] [address] Liam Rubin MD NO ADDRESS ON FILE Other and Unspecified Hyperlipidemia (Primary Dx) Social History Tobacco Use Types Packs/Day Years Used Date Smoking Tobacco: Never Assessed Sex and Gender Information Value Date Recorded Sex Assigned at Not on file Legal Sex Male 2:38 AM ORE FIELDER Gender Identity Not on file Sexual Orientation Not on file documented as of this encounter Plan of Treatment Upcoming Encounters Date Type Department Care Team (Late st Contact Info) Description 07/15/2024 9:45 AM CDT Office Visit [facility] Heart and Vascular At [facility] [address] [facility] [address] [place] [address] Atif Stover MD [address] [facility] [facility] [address] [place] [address] 06/15/2025 9:15 AM CDT Office Visit [facility] Hepatology [address] [place] [address] Al Ervin MD [address] [facility] [address] [facility] [place] [address] documented as of this encounter Procedures Procedure Name Priority Date/Time Associated Diagnosis Comments ALT Routine 11/09/2005 3:28 PM CDT LIPID PANEL Routine 11/09/2005 3:28 PM CDT documented in this encounter Results * ALT (11/09/2005 3:28 PM CDT) ALT 37 0 - 41 U/L INTERFACE SYSTEM 11/09/2005 3:28 PM CDT us Liam Rubin MD CHEMISTRY ORDERABLES Final Re sult Performing Organization Address [facility] Phone Number INTERFACE SYSTEM Refer to clinic/hospital department * (ABNORMAL) LIPID PANEL (11/09/2005 3:28 PM CDT) CHOLESTEROL 212(H) 100 - 199 mg/dL INTERFACE SYSTEM TRIGLYCERIDE 125 10 - 149 mg/dL INTERFACE SYSTEM HDL 62(H) 40 - 59 mg/dL INTERFACE SYSTEM CHOL/HDL RATIO 3.4 2.0 - 5.0 INTER FACE SYSTEM LDL CALCULATED 125(H) <=99 mg/dL INTERFACE SYSTEM LIPID PANEL COMMENT See Below INTERFACE SYSTEM Comment: The adult ATP and pediatric NCEP classifications for lipids are available on the [facility] Intranet at: [email or web address] Select: Lab Policies and Procedures Select: Reference Ranges - Lipids 11/09/2005 3:28 PM CDT us Liam Rubin MD CHEMISTRY ORDERABLES Final Re sult Performing Organization Address City/[facility] Co de Phone Number INTERFACE SYSTEM Refer to clinic/hospital department documented in this encounter Visit Diagnoses Diagnosis Other and unspecified hyperlipidemia- Primary documented in this encounter Additional Health Concerns Infection Onset Date Last Indicated Resolved Time R/O COVID-19 12/24/2019 12/24/2019 12/26/2019 6:02 AM ORE FIELDER COVID-19 12/24/2019 12/24/2019 01/23/2020 1:16 AM ORE FIELDER documented as of this encounter Care Teams Drafter Mechanical Relationship Specialty Start Date End Date Chandu Urbina MD PCP - General Family Practice 06/12/23 11/13/23 documented as of this encounter
--- OUTSIDE RECORDS SUMMARY | 2024-06-18 09:56 | XMS_ITS | Encounter Summary ---
Author Organization [facility] Address [address] [place] [address] Care Team Providers Care Supervisor Color Paste Mixing Name Role Phone Chandu Urbina MD Primary Care Provider Unavailab le Encounter Details Date Type Department Care Team (Late st Contact Info) Description 05/09/2007 Outpatient Historical [facility] Primary Care - [address] [place] [address] Liam Rubin MD NO ADDRESS ON FILE Social History Tobacco Use Types Packs/Day Years Used Date Smoking Tobacco: Never Assessed Sex and Gender Information Value Date Recorded Sex Assigned at Not on file Legal Sex Male 2:38 AM HVAC R INSTRUCTOR Gender Identity Not on file Sexual Orientation Not on file documented as of this encounter Plan of Treatment Upcoming Encounters Date Type Department Care Team (Late st Contact Info) Description 07/15/2024 9:45 AM CDT Office Visit [facility] Heart [facility] At [facility] [address] [facility] [address] [place] [address] Atif Stover MD [address] [facility] [address] [place] [address] 06/15/2025 9:15 AM CDT Office Visit [facility] Hepatology [address] [facility] [place] [address] Al Ervin MD [address] [facility] [address] [facility] [place] [address] documented as of this encounter Visit Diagnoses Not on filedocumented in this encounter Additional Health Concerns Infection Onset Date Last Indicated Resolved Time R/O COVID-19 12/24/2019 12/24/2019 12/26/2019 6:02 AM HVAC R INSTRUCTOR COVID-19 12/24/2019 12/24/2019 01/23/2020 1:16 AM HVAC R INSTRUCTOR documented as of this encounter Care Teams Supervisor Color Paste Mixing Relationship Specialty Start Date End Date Chandu Urbina MD PCP - General Family Practice 06/12/23 11/13/23 documented as of this encounter
--- OUTSIDE RECORDS SUMMARY | 2024-06-18 09:56 | XMS_ITS | Encounter Summary ---
Author Organization [facility] Address [address] [place] [address] Care Team Providers Care Mid Level Business Analyst Name Role Phone Chandu Urbina MD Primary Care Provider Unavailab le Encounter Details Date Type Department Care Team (Latest Contact Info) Description 05/08/2006 Outpatient Historical [facility] Primary Care - [facility] [address] [place] [address] Liam Rubin MD NO ADDRESS ON FILE Special Screening for Malignant Neoplasm of Prostate (Primary Dx) Social History Tobacco Use Types Packs/Day Years Used Date Smoking Tobacco: Never Assessed Sex and Gender Information Value Date Recorded Sex Assigned at Not on file Legal Sex Male 2:38 AM METAL TEMPLATE MAKER Gender Identity Not on file Sexual Orientation Not on file documented as of this encounter Plan of Treatment Upcoming Encounters Date Type Department Care Team (Late st Contact Info) Description 07/15/2024 9:45 AM CDT Office Visit [facility] Heart and Vascular At [facility] [address] [place] [address] Atif Stover MD [address] [facility] [facility] [address] [place] [address] 06/15/2025 9:15 AM CDT Office Visit [facility] Hepatology [address] [place] [address] Al Ervin MD [address] [facility] [address] [facility] [place] [address] documented as of this encounter Procedures Procedure Name Priority Date/Time Associated Diagnosis Comments ALT Routine 05/08/2006 3:01 PM CDT PSA Routine 05/08/2006 3:01 PM CDT LIPID PANEL Routine 05/08/2006 3:01 PM CDT documented in this encounter Results * ALT (05/08/2006 3:01 PM CDT) ALT 30 0 - 41 U/L INTERFACE SYSTEM 05/08/2006 3:01 PM CDT us Liam Rubin MD CHEMISTRY ORDERABLES Edited Performing Organization Address City/[facility]/ZIP Co de Phone Number INTERFACE SYSTEM Refer to clinic/hospital department * (ABNORMAL) LIPID PANEL (05/08/2006 3:01 PM CDT) CHOLESTEROL 222(H) 100 - 199 mg/dL INTERFACE SYSTEM TRIGLYCERIDE 111 10 - 149 mg/dL INTERFACE SYSTEM HDL 60(H) 40 - 59 mg/dL INTERFACE SYSTEM CHOL/HDL RATIO 3.7 2.0 - 5.0 INTER FACE SYSTEM LDL CALCULATED 140(H) <=99 mg/dL INTERFACE SYSTEM LIPID PANEL COMMENT See Below INTERFACE SYSTEM Comment: The adult ATP and pediatric NCEP classifications for lipids are available on the [facility] Intranet at: [email or web address] Select: Lab Policies and Procedures Select: Reference Ranges - Lipids 05/08/2006 3:01 PM CDT us Liam Rubin MD CHEMISTRY ORDERABLES Edited INTERFACE SYSTEM Refer to clinic/hospital department * PSA (05/08/2006 3:01 PM CDT) PSA 0.5 0.0 - 4.0 ng/mL INTERFACE SYSTEM Comment:Performed on [employer] E170 System 05/08/2006 3:01 PM CDT Liam Rubin MD CHEMISTRY ORDERABLES Edited INTERFACE SYSTEM Refer to clinic/hospital department documented in this encounter Visit Diagnoses Diagnosis Special screening for malignant neoplasm of prostate- Primary documented in this encounter Additional Health Concerns Infection Onset Date Last Indicated Resolved Time R/O COVID-19 12/24/2019 12/24/2019 12/26/2019 6:02 AM METAL TEMPLATE MAKER COVID-19 12/24/2019 12/24/2019 01/23/2020 1:16 AM METAL TEMPLATE MAKER documented as of this encounter Care Teams Mid Level Business Analyst Relationship Specialty Start Date End Date Chandu Urbina MD PCP - General Family Practice 06/12/23 11/13/23 documented as of this encounter
--- OUTSIDE RECORDS SUMMARY | 2024-06-18 09:56 | XMS_ITS | Encounter Summary ---
Author Organization [facility] Address [address] [place] [address] Care Team Providers Care Beef Grinder Name Role Phone Chandu Urbina MD Primary Care Provider Unavailab le Encounter Details Date Type Department Care Team (Latest Contact Info) Description 05/09/2007 Outpatient Historical [facility] Primary Care - [facility] [address] [place] [address] Liam Rubin MD NO ADDRESS ON FILE Special Screening for Malignant Neoplasm of Prostate Social History Tobacco Use Types Packs/Day Years Used Date Smoking Tobacco: Never Assessed Sex and Gender Information Value Date Recorded Sex Assigned at Not on file Legal Sex Male 2:38 AM DIRECTOR OF PROPERTY MANAGEMENT Gender Identity Not on file Sexual Orientation Not on file documented as of this encounter Plan of Treatment Upcoming Encounters Date Type Department Care Team (Late st Contact Info) Description 07/15/2024 9:45 AM CDT Office Visit [facility] Heart and Vascular At [facility] [address] [address] [address] [place] [address] Atif Stover MD [address] [facility] [address] [place] [address] 06/15/2025 9:15 AM CDT Office Visit [facility] Hepatology [address] [place] [address] Al Ervin MD [address] [facility] [address] [facility] [place] [address] documented as of this encounter Procedures Procedure Name Priority Date/Time Associated Diagnosis Comments ALT Routine 05/09/2007 10:26 AM CDT PSA Routine 05/09/2007 10:26 AM CDT CREATININE Routine 05/09/2007 10:26 AM CDT LIPID PANEL Routine 05/09/2007 10:26 AM CDT documented in this encounter Results * CREATININE (05/09/2007 10:26 AM CDT) CREATININE 1.03 0.67 - 1.17 mg/dL [facility] GFR, >60 >=60 mL/min/1.7 sq meter [facility] GFR >60 >=60 mL/min/1.7 sq meter [facility] Comment: Estimated GFR rate interpretative information for both Americans and non- Americans is available on the [facility] [place] [place] Intranet at: [email or web address] Select: Lab Policies and Procedures Select: Reference Ranges - GFR Blood specimen (specimen) 05/09/2007 10:26 AM CDT 05/09/2007 6:39 PM CDT Liam Rubin MD CHEMISTRY ORDERABLES Edited [facility] [address] [place] [place] [address] * (ABNORMAL) ALT (05/09/2007 10:26 AM CDT) ALT 55(H) 0 - 41 U/L [facility] Blood specimen (specimen) 05/09/2007 10:26 AM CDT 05/09/2007 6:39 PM CDT Liam Rubin MD CHEMISTRY ORDERABLES Final Re sult Performing Organization Address [facility] Co de Phone Number [facility] [address] [place] [address] * (ABNORMAL) LIPID PANEL (05/09/2007 10:26 AM CDT) HDL 64(H) 40 - 59 mg/dL [facility] CHOLESTEROL 198 100 - 199 mg/dL [facility] CHOL/HDL RATIO 3.1 2.0 - 5.0 [facility] TRIGLYCERIDE 118 10 - 149 mg/dL [facility] LDL CALCULATED 110(H) <=99 mg/dL [facility] LIPID PANEL COMMENT See Below [facility] Comment: The adult ATP and pediatric NCEP classifications for lipids are available on the [facility] [place] [place] Intranet at: [email or web address] Select: Lab Policies and Procedures,Current Select: Lipid Panel Interpretation Blood specimen (specimen) 05/09/2007 10:26 AM CDT 05/09/2007 6:39 PM CDT us Liam Rubin MD CHEMISTRY ORDERABLES Edited Performing Organization Address [facility] Co de Phone Number [facility] [address] [place] [address] * PSA (05/09/2007 10:26 AM CDT) PSA 0.5 0.0 - 4.0 ng/mL [facility] Comment:Performed on [employer] E170 System Blood specimen (specimen) 05/09/2007 10:26 AM CDT 05/09/2007 6:39 PM CDT Liam Rubin MD CHEMISTRY ORDERABLES Edited [facility] [address] [place], [place] [address] documented in this encounter Visit Diagnoses Diagnosis Special screening for malignant neoplasm of prostate documented in this encounter Additional Health Concerns Infection Onset Date Last Indicated Resolved Time R/O COVID-19 12/24/2019 12/24/2019 12/26/2019 6:02 AM DIRECTOR OF PROPERTY MANAGEMENT COVID-19 12/24/2019 12/24/2019 01/23/2020 1:16 AM DIRECTOR OF PROPERTY MANAGEMENT documented as of this encounter Care Teams Beef Grinder Relationship Specialty Start Date End Date Chandu Urbina MD PCP - General Family Practice 06/12/23 11/13/23 documented as of this encounter
--- OUTSIDE RECORDS SUMMARY | 2024-06-18 09:56 | XMS_ITS | Encounter Summary ---
Author Organization [facility] Address [address] [place] [address] Care Team Providers Care Chemical Instrumentation Officer Name Role Phone Chandu Urbina MD Primary Care Provider Unavailab le Encounter Details Date Type Department Care Team (Latest Contact Info) Description 11/10/[address] [facility] Primary Care - [facility] [address] [place] [address] Liam Rubin MD NO ADDRESS ON FILE Cor Athrscl-Uns Vessel Social History Tobacco Use Types Packs/Day Years Used Date Smoking Tobacco: Never Alcohol Use Standard Drinks/Week Comments Yes 0 (1 standard drink = 0.6 oz pur e alcohol) Sex and Gender Information Value Date Recorded Sex Assigned at Not on file Legal Sex Male 2:38 AM SIGNAL INTELLIGENCE/ELECTRONIC WARFARE Gender Identity Not on file Sexual Orientation Not on file documented as of this encounter Plan of Treatment Upcoming Encounters Date Type Department Care Team (Late st Contact Info) Description 07/15/2024 9:45 AM CDT Office Visit [facility] Heart and Vascular At [facility] [address] [place] [address] Atif Stover MD [address] [place] [address] 06/15/2025 9:15 AM CDT Office Visit [facility] Hepatology [address] [place] [address] Al Ervin MD [address] [facility] [place] [address] documented as of this encounter Visit Diagnoses Diagnosis Coronary atherosclerosis of unspecified type of vessel, [place] or graft documented in this encounter Additional Health Concerns Infection Onset Date Last Indicated Resolved Time R/O COVID-19 12/24/2019 12/24/2019 12/26/2019 6:02 AM SIGNAL INTELLIGENCE/ELECTRONIC WARFARE COVID-19 12/24/2019 12/24/2019 01/23/2020 1:16 AM SIGNAL INTELLIGENCE/ELECTRONIC WARFARE documented as of this encounter Care Teams Chemical Instrumentation Officer Relationship Specialty Start Date End Date Chandu Urbina MD PCP - General Family Practice 06/12/23 11/13/23 documented as of this encounter
--- OUTSIDE RECORDS SUMMARY | 2024-06-18 09:56 | XMS_ITS | Encounter Summary ---
Author Organization [facility] Address [address] [place] [address] Care Team Providers Care Assistant Professor Nurse Education Name Role Phone Chandu Urbina MD Primary Care Provider Unavailab le Encounter Details Date Type Department Care Team (Late st Contact Info) Description 11/08/2006 Outpatient Historical [facility] Primary Care - [address] [place] [address] Liam Rubin MD NO ADDRESS ON FILE Social History Tobacco Use Types Packs/Day Years Used Date Smoking Tobacco: Never Assessed Sex and Gender Information Value Date Recorded Sex Assigned at Not on file Legal Sex Male 2:38 AM NATURAL RESOURCE ECONOMIST Gender Identity Not on file Sexual Orientation Not on file documented as of this encounter Plan of Treatment Upcoming Encounters Date Type Department Care Team (Late st Contact Info) Description 07/15/2024 9:45 AM CDT Office Visit [facility] At [facility] [address] [facility] [address] [place] [address] Atif Stover MD [address] [facility] [address] [place] [address] 06/15/2025 9:15 AM CDT Office Visit [facility] Hepatology [address] [facility] [facility] [address] [place] [address] Al Ervin MD [address] [facility] [address] [facility] [place] [address] documented as of this encounter Visit Diagnoses Not on filedocumented in this encounter Additional Health Concerns Infection Onset Date Last Indicated Resolved Time R/O COVID-19 12/24/2019 12/24/2019 12/26/2019 6:02 AM NATURAL RESOURCE ECONOMIST COVID-19 12/24/2019 12/24/2019 01/23/2020 1:16 AM NATURAL RESOURCE ECONOMIST documented as of this encounter Care Teams Assistant Professor Nurse Education Relationship Specialty Start Date End Date Chandu Urbina MD PCP - General Family Practice 06/12/23 11/13/23 documented as of this encounter
--- OUTSIDE RECORDS SUMMARY | 2024-06-18 09:56 | XMS_ITS | Encounter Summary ---
Author Organization [facility] Address [address] [place] [address] Care Team Providers Care Gasoline Locomotive Crane Operator Name Role Phone Chandu Urbina MD Primary Care Provider Kimberly le Encounter Details Date Type Department Care Team (Late st Contact Info) Description 11/18/2007 Outpatient Historical [facility] Liam Rubin MD NO ADDRESS ON FILE Social History Tobacco Use Types Packs/Day Years Used Date Smoking Tobacco: Never Alcohol Use Standard Drinks/Week Comments Yes 0 (1 standard drink = 0.6 oz pur e alcohol) Sex and Gender Information Value Date Recorded Sex Assigned at Not on file Legal Sex Male 2:38 AM MAILHOUSE OPERATOR Gender Identity Not on file Sexual Orientation Not on file documented as of this encounter Plan of Treatment Upcoming Encounters Date Type Department Care Team (Late st Contact Info) Description 07/15/2024 9:45 AM CDT Office Visit [facility] Heart and Vascular At [facility] [address] [place] [address] Atif Stover MD [address] [facility] [address] [place] [address] 06/15/2025 9:15 AM CDT Office Visit [facility] Hepatology [address] [place] [address] Al Ervin MD [address] [facility] [address] [facility] [place] [address] documented as of this encounter Visit Diagnoses Not on filedocumented in this encounter Additional Health Concerns Infection Onset Date Last Indicated Resolved Time R/O COVID-19 12/24/2019 12/24/2019 12/26/2019 6:02 AM MAILHOUSE OPERATOR COVID-19 12/24/2019 12/24/2019 01/23/2020 1:16 AM MAILHOUSE OPERATOR documented as of this encounter Care Teams Gasoline Locomotive Crane Operator Relationship Specialty Start Date End Date Chandu Urbina MD PCP - General Family Practice 06/12/23 11/13/23 documented as of this encounter
--- OUTSIDE RECORDS SUMMARY | 2024-06-18 09:56 | XMS_ITS | Encounter Summary ---
Author Organization [facility] Address [address] [place] [address] Care Team Providers Care Medical Investigator Name Role Phone Chandu Urbina MD Primary Care Provider Unavailab le Reason for Referral * Behavioral Health - Outpatient (Routine) - Closed Specialty Diagnoses / Procedures Referred By Contac t Referred To Contact Diagnoses Anxiety and depression Uncomplicated alcohol dependence (CMS/HCC) Procedures RI OFFICE/OUTPATIENT ESTABLISHED MOD MDM 30 MIN RI OFFICE/OUTPATIENT NEW MODERATE MDM 45 MINUTES Chandu Urbina MD Referral ID Status Reason Start Date Expiration Date Visits Re quested Visits Authorized [id number] Closed 06/28/2023 06/27/2024 1 1 Reason for Visit * Reason Comments Results Encounter Details Date Type Department Care Team (Late st Contact Info) Description 06/26/2023 Telephone [facility] Primary Care - [address] [place] [address] Chandu Urbina MD NO ADDRESS ON FILE Results Social History Tobacco Use Types Packs/Day Years Used Date Smoking Tobacco: Former Cigarettes 1 21 1 04/05/1985 - 02/02/2007 Smokeless Tobacco: Never Alcohol Use Standard Drinks/Week Comments Yes 1.7 (1 standard drink = 0.6 oz p ure alcohol) daily Sex and Gender Information Value Date Recorded Sex Assigned at Not on file Legal Sex Male 2:38 AM DNA ANALYST Gender Identity Not on file Sexual Orientation Not on file documented as of this encounter Miscellaneous Notes * Telephone Encounter - Chandu Urbina MD - 06/28/2023 4:13 PM CDT Discussed with patient over phone. Changes consistent with hepatic cirrhosis. Could be attributed to chronic alcohol use. Reports increased drinking due to recent stressors involving health of other family members. Currently >2 beers daily, occasional vodka. Recommended cutting back and ideally complete cessation of alcohol intake. After discussion, he is interested in referral to collaborative care for possible underlying psychiatric condition, referral placed. Will monitor labs periodically. * Telephone Encounter - Verito Roche RN - 06/27/2023 9:56 AM CDT Routed to pcp * Telephone Encounter - Gabriella Espana - 06/26/2023 10:32 AM CDT Copied from [facility] #[id number]. Topic: CPA Information Request - Results >> June 26, 2023 10:30 AM Gabriella Victoria wrote: Caller is requesting information about results from an order. ? Caller Name: Mona- Callback Number: [phone] Test Name: Heather Dunn is requesting for Dr. Urbina to call and discuss the results with the patient, she is not wanting anyone else to call. Results Encounter notes are: Reviewed on [facility] patient has additional questions Call Notes: Results were not given and the patient needs a call back documented in this encounter Plan of Treatment Upcoming Encounters Date Type Department Care Team (Late st Contact Info) Description 07/15/2024 9:45 AM CDT Office Visit [facility] Heart and Vascular At [address] [place] [address] Atif Stover MD [address] [place] [address] [address] [place] [address] 06/15/2025 9:15 AM CDT Office Visit [facility] Hepatology [address], [address] [place] [address] Al Ervin MD [address] [facility] [place] [address] Scheduled Referrals Name Type Priority Associated Diagnoses Order Schedule AMB REFERRAL TO [facility] Outpatient Referral Routine Anxiety and depression Uncomplicated alcohol dependence (CMS/HCC) Ordered: 06/28/2023 documented as of this encounter Visit Diagnoses Diagnosis Anxiety and depression- Primary Dysthymic disorder Uncomplicated alcohol dependence (CMS/HCC) Other and unspecified alcohol dependence, unspecified drinking behavior documented in this encounter Care Teams Medical Investigator Relationship Specialty Start Date End Date Chandu Urbina MD PCP - General Family Practice 06/12/23 11/13/23 documented as of this encounter
[2024-06-18 20:38] LABS: Thyroid Stimulating Hormone 0.809 uIU/mL (0.465-4.680)
[2024-06-18 21:14] LABS: Folic Acid 19.6 ng/mL (2.76->20)
== END 2024-06-18 09:38 | disposition home or self-care (01) ==
LOC: ANHGOSHLAB 09:38
PROVIDERS: PCP Nurse Practitioner; Visit Provider Nurse Practitioner
DX: R41.3 Other amnesia (principal)
CPT/HCPCS: 36415; 82607; 82746; 84443

== ENCOUNTER 2024-06-30 14:13 | Outpatient (CLI) | payer MEDICARE, SELFPAY ==
--- OUTSIDE RECORDS SUMMARY | 2024-06-30 14:18 | XMS_ITS | Encounter Summary ---
Author Organization [facility] Address [address] [place] [address] Care Team Providers Care Director Operating Name Role Phone Chandu Urbina MD Primary Care Provider Unavailab le Encounter Details Date Type Department Care Team (Late st Contact Info) Description 06/20/2007 Orders Only [facility] Primary Care - [facility] [address] [place] [address] [address] [place] [address] Liam Rubin MD NO ADDRESS ON FILE Social History Tobacco Use Types Packs/Day Years Used Date Smoking Tobacco: Never Assessed Sex and Gender Information Value Date Recorded Sex Assigned at Not on file Legal Sex Male 2:38 AM PAPER AND PRINTS RESTORER Gender Identity Not on file Sexual Orientation Not on file documented as of this encounter Plan of Treatment Upcoming Encounters Date Type Department Care Team (Late st Contact Info) Description 08/17/2024 9:45 AM CDT Office Visit [facility] Heart and Vascular At [facility] [address] [facility] [address] [place] [address] Atif Stover MD [address] [facility] [address] [place] [address] 06/15/2025 9:15 AM CDT Office Visit [facility] Hepatology [address] [place], [address] [place] [address] Al Ervin MD [address] [facility] [facility] [place] [address] [facility] [place] [address] documented as of this encounter Visit Diagnoses Not on filedocumented in this encounter Additional Health Concerns Infection Onset Date Last Indicated Resolved Time R/O COVID-19 12/24/2019 12/24/2019 12/26/2019 6:02 AM PAPER AND PRINTS RESTORER COVID-19 12/24/2019 12/24/2019 01/23/2020 1:16 AM PAPER AND PRINTS RESTORER documented as of this encounter Care Teams Director Operating Relationship Specialty Start Date End Date Chandu Urbina MD PCP - General Family Practice 06/12/23 11/13/23 documented as of this encounter
--- OUTSIDE RECORDS SUMMARY | 2024-06-30 14:18 | XMS_ITS | Encounter Summary ---
Author Organization [facility] Address [address] [place] [address] Care Team Providers Care Admissions Evaluator Name Role Phone Chandu Urbina MD Primary Care Provider Kimberly le Encounter Details Date Type Department Care Team (Latest Contact Info) Description 11/18/2007 Outpatient Historical [facility] Liam Rubin MD NO ADDRESS ON FILE Pain in Joint, Lower Leg Social History Tobacco Use Types Packs/Day Years Used Date Smoking Tobacco: Never Alcohol Use Standard Drinks/Week Comments Yes 0 (1 standard drink = 0.6 oz pur e alcohol) Sex and Gender Information Value Date Recorded Sex Assigned at Not on file Legal Sex Male 2:38 AM HEATING AND VENTILATING DRAFTER Gender Identity Not on file Sexual Orientation Not on file documented as of this encounter Plan of Treatment Upcoming Encounters Date Type Department Care Team (Late st Contact Info) Description 08/17/2024 9:45 AM CDT Office Visit [facility] Heart and Vascular At [facility] [address] [facility] [address] [place] [address] Atif Stover MD [address] [facility] [address] [place] [address] 06/15/2025 9:15 AM CDT Office Visit [facility] Hepatology [address] [place] [address] Al Ervin MD [address] [facility] [address] [facility] [place] [address] documented as of this encounter Visit Diagnoses Diagnosis Pain in joint, lower leg documented in this encounter Additional Health Concerns Infection Onset Date Last Indicated Resolved Time R/O COVID-19 12/24/2019 12/24/2019 12/26/2019 6:02 AM HEATING AND VENTILATING DRAFTER COVID-19 12/24/2019 12/24/2019 01/23/2020 1:16 AM HEATING AND VENTILATING DRAFTER documented as of this encounter Care Teams Admissions Evaluator Relationship Specialty Start Date End Date Chandu Urbina MD PCP - General Family Practice 06/12/23 11/13/23 documented as of this encounter
--- OUTSIDE RECORDS SUMMARY | 2024-06-30 14:18 | XMS_ITS | Encounter Summary ---
Author Organization [facility] Address [address] [place] [address] Care Team Providers Care Correctional Supervisor Name Role Phone Chandu Urbina MD Primary Care Provider Unavailab le Encounter Details Date Type Department Care Team (Late st Contact Info) Description 05/09/[address] [facility] Primary Care - [address] [place] [address] Liam Rubin MD NO ADDRESS ON FILE Social History Tobacco Use Types Packs/Day Years Used Date Smoking Tobacco: Never Assessed Sex and Gender Information Value Date Recorded Sex Assigned at Not on file Legal Sex Male 2:38 AM COMPUTERIZED TABLE CUTTER Gender Identity Not on file Sexual Orientation Not on file documented as of this encounter Plan of Treatment Upcoming Encounters Date Type Department Care Team (Late st Contact Info) Description 08/17/2024 9:45 AM CDT Office Visit [facility] Heart and Vascular At [facility] [address] [facility] [address] [place] [address] Atif Stover MD [address] [facility] [address] [place] [address] 06/15/2025 9:15 AM CDT Office Visit [facility] Hepatology [address] [facility] [place] [address] Al Ervin MD [address] [facility] [address] [facility] [place] [address] documented as of this encounter Visit Diagnoses Not on filedocumented in this encounter Additional Health Concerns Infection Onset Date Last Indicated Resolved Time R/O COVID-19 12/24/2019 12/24/2019 12/26/2019 6:02 AM COMPUTERIZED TABLE CUTTER COVID-19 12/24/2019 12/24/2019 01/23/2020 1:16 AM COMPUTERIZED TABLE CUTTER documented as of this encounter Care Teams Correctional Supervisor Relationship Specialty Start Date End Date Chandu Urbina MD PCP - General Family Practice 06/12/23 11/13/23 documented as of this encounter
--- OUTSIDE RECORDS SUMMARY | 2024-06-30 14:18 | XMS_ITS | Encounter Summary ---
Author Organization [facility] Address [address] [place] [address] Care Team Providers Care Yard Goods Salesperson Name Role Phone Chandu Urbina MD Primary Care Provider Unavailab le Encounter Details Date Type Department Care Team (Late st Contact Info) Description 06/05/2007 Outpatient Historical [facility] Primary Care - [facility] [address] [place] [address] Len Vides MD [address] [place] [address] Social History Tobacco Use Types Packs/Day Years Used Date Smoking Tobacco: Never Assessed Sex and Gender Information Value Date Recorded Sex Assigned at Not on file Legal Sex Male 2:38 AM TUTORING CLINICIAN Gender Identity Not on file Sexual Orientation Not on file documented as of this encounter Plan of Treatment Upcoming Encounters Date Type Department Care Team (Late st Contact Info) Description 08/17/2024 9:45 AM CDT Office Visit [facility] Heart and Vascular At [facility] [address] [facility] [address] [place] [address] Atif Stover MD [address] [facility] [address] [place] [address] 06/15/2025 9:15 AM CDT Office Visit [facility] Hepatology [address] [place] [address] Al Ervin MD [address] [facility] [place] [address] documented as of this encounter Visit Diagnoses Not on filedocumented in this encounter Additional Health Concerns Infection Onset Date Last Indicated Resolved Time R/O COVID-19 12/24/2019 12/24/2019 12/26/2019 6:02 AM TUTORING CLINICIAN COVID-19 12/24/2019 12/24/2019 01/23/2020 1:16 AM TUTORING CLINICIAN documented as of this encounter Care Teams Yard Goods Salesperson Relationship Specialty Start Date End Date Chandu Urbina MD PCP - General Family Practice 06/12/23 11/13/23 documented as of this encounter
--- OUTSIDE RECORDS SUMMARY | 2024-06-30 14:18 | XMS_ITS | Referral Summary ---
Author Organization [facility] Address [address] [place] [address] Care Team Providers Care Concrete Gun Operator Name Role Phone Liam Rubin MD Primary Care Provider [phone] Allergies Active Allergy Reactions Criticality Noted Date [...] Industry Job Start Date Job End Date Name[employer] Not on file Not on [...] on file Medical Devices Implanted Type Area Senior Gis Analyst Device Identifier Shelf Expiration Date Model / Serial / Lot [employer] Orthoblast Ii Allograft Paste Syringe Graft 1cc Bone - [id number] - [id number] Implanted:Qty: 1 on 08/26/2017 by Ulysses Schuler MD at [facility] Left: Radius [employer] 05/09/2019 / [id number] / [id number] [employer] 1318-050 Dvr 25u70nd Crosslock Radius Left Distal Volar Standard Plate - [id number] Implanted:Qty: 1 on 08/26/2017 by Ulysses Schuler MD at [facility] Left: Radius [employer] 1318-050 / / [employer] [id number] Dvr 2.7mm 18mm Low Profile Nonlock Hand Cortical Screw Bone - [id number] Implanted:Qty: 2 on 08/26/2017 at [facility] Left: Radius [employer] [id number] / / [employer] [id number] Dvr 2.7mm 20mm Lock Spine Screw Bone Nonsterile - [id number] Implanted:Qty: 1 on 08/26/2017 by Ulysses Schuler MD at [facility] Left: Radius [employer] 1312-120 / / [employer] [id number] Dvr 2.7mm 16mm Lock Radius Distal Volar Square Screw Bone Sterile - [id number] Implanted:Qty: 1 on 08/26/2017 by Ulysses Schuler MD at [facility] Left: Radius [employer] 13104-09-116 / / Screw Lock [address] 2.7 X 26mm - [id number] Implanted:Qty: 2 on 08/26/2017 by Ulysses Schuler MD at [facility] Left: Radius [employer] 1312-27-126 / / [employer] 1312-272-16 2.7mm 16mm Nonlock Low Profile Radius Distal Screw Bone - [id number] Implanted:Qty: 1 on 08/26/2017 by Ulysses Schuler MD at [facility] Left: Radius [employer] 1312-272-16 / / [employer] [id number] [place] 1.6mm Wire Fixation Stainless Steel Nonsterile - [id number] Implanted:Qty: 2 on 08/26/2017 at [facility] Left: Radius [employer] [id number] / / Insurance [facility] [employer] HMO REF Care Teams Concrete Gun Operator Relationship Specialty Start Date End Date Liam Rubin MD [address] [facility] [facility] [address] [place] [address] PCP - General 08/10/17
--- OUTSIDE RECORDS SUMMARY | 2024-06-30 14:18 | XMS_ITS | Encounter Summary ---
Author Organization [facility] Address [address] [place] [address] Care Team Providers Care Wood Craftsman Name Role Phone Chandu Urbina MD Primary Care Provider Unavailab le Encounter Details Date Type Department Care Team (Latest Contact Info) Description 11/10/2007 Outpatient Historical [facility] Primary Care - [facility] [address] [place] [address] Liam Rubin MD NO ADDRESS ON FILE Cor Athrscl-Uns Vessel Social History Tobacco Use Types Packs/Day Years Used Date Smoking Tobacco: Never Alcohol Use Standard Drinks/Week Comments Yes 0 (1 standard drink = 0.6 oz pur e alcohol) Sex and Gender Information Value Date Recorded Sex Assigned at Not on file Legal Sex Male 2:38 AM ONCOLOGY CONSULTANT Gender Identity Not on file Sexual Orientation Not on file documented as of this encounter Plan of Treatment Upcoming Encounters Date Type Department Care Team (Late st Contact Info) Description 08/17/2024 9:45 AM CDT Office Visit [facility] Heart and Vascular At [facility] [address] [facility] [address] [place] [address] Atif Stover MD [address] [facility] [address] [place] [address] 06/15/2025 9:15 AM CDT Office Visit [facility] Hepatology [address] [place] [address] Al Ervin MD [address] [facility] [place] [address] documented as of this encounter Visit Diagnoses Diagnosis Coronary atherosclerosis of unspecified type of vessel, ramona or graft documented in this encounter Additional Health Concerns Infection Onset Date Last Indicated Resolved Time R/O COVID-19 12/24/2019 12/24/2019 12/26/2019 6:02 AM ONCOLOGY CONSULTANT COVID-19 12/24/2019 12/24/2019 01/23/2020 1:16 AM ONCOLOGY CONSULTANT documented as of this encounter Care Teams Wood Craftsman Relationship Specialty Start Date End Date Chandu Urbina MD PCP - General Family Practice 06/12/23 11/13/23 documented as of this encounter
--- OUTSIDE RECORDS SUMMARY | 2024-06-30 14:18 | XMS_ITS | Patient Health Record ---
Author Organization [facility] Address [address] [place] [address] Care Team Providers Care Daycare Worker Name Role Phone Keshawn Cain [phone] ALLERGIES Allergen (clinical drug ingredient) Drug/Non Drug Allergy documented on EMR Reaction Allergy Type Onset Date Status Bee Sting anaphylaxis Allergy Active REASON FOR REFERRAL No Information MEDICATIONS Medication SIG (Take, Route, Frequency, Duration) Notes Start Date End Date Status Aspirin Adult Low Dose 81 MG 1 tablet Orally Once a day Active Zetia 10 MG 1 tablet Orally QD Active Plavix 75 MG 1 tablet Orally Once a day Active Crestor 40 MG 1 tablet Orally QD Active Toprol XL 100 MG 1 tablet Orally Q12 Active Flonase Not-Taking Flomax 0.4 MG 1 capsule Orally QD Not-Taking Norvasc 5 MG 1 tablet Orally Once a day Active HYDROcodone-Acetaminophe n 5-325 MG 1 tablet as needed Orally every 8 hrs for 30 days 08/28/2021 Active HYDROcodone-Acetaminophe n 5-325 MG 1 tablet as needed Orally every 8 hrs for 7 days 06/19/2021 Active SOCIAL HISTORY Tobacco Use: Social History Observation Description Date Details (start date - stop date) Never Smoker NA - NA Sex Assigned At : Social History Observation Description Sex Assigned At Unknown Tobacco Use/Smoking Question Answer Notes Are you a nonsmoker PROBLEMS Problem Type ICD Code Onset Dates Problem Status W/U Status Risk SNOMED Code Notes Problem 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) Active confirmed Lumbosacral spondylosis without myelopathy (42130373) Problem Bilateral sacroiliitis (M46.1) Active confirmed Bilateral sacroiliitis (2345995146) Problem Arthritis of right hip (M16.11) Active confirmed Arthritis of right hip (36384926155451 01) Problem Facet arthritis of lumbosacral region (M47.817) Active confirmed Lumbosacral spondylosis without myelopathy (79338068) Problem Arthritis of left hip (M16.12) Active confirmed Arthritis of left hip (01423812494087 05) Problem Lumbar foraminal stenosis (M48.061) Active confirmed Lumbar spinal stenosis (28565103) PLAN OF TREATMENT Pending Test Test Name Order Date X ray : Hip, bilateral 04/30/2022 MRI : Lumbar without contrast 04/11/2021 MEDICATIONS ADMINISTERED Medication Instructions Date of Administration Dosage Notes Bilateral L3, L4, and L5 Med ial Branch Block 04/27/2021 Bilateral L3, L4, and L5 Med ial Branch Block 05/29/2021 Bilateral l3, L4, L5 RF 03/26/2022 Left L4 Selective Epidural S teroid Injection 05/11/2021 Right L4 Selective Epidural Steroid Injection 05/11/2021 MEDICAL (GENERAL) HISTORY Medical History History ICD Code High blood pressure Surgical History Surgery Date(Month/Year) 3 stents heart 03/2007 Hospitalization History Reason Date(Month/Year) 3 stents heart 03/2007
--- OUTSIDE RECORDS SUMMARY | 2024-06-30 14:18 | XMS_ITS | Encounter Summary ---
Author Organization [facility] Address [address] [place] [address] Care Team Providers Care Penology Teacher Name Role Phone Chandu Urbina MD Primary Care Provider Unavailab le Encounter Details Date Type Department Care Team (Late st Contact Info) Description 09/07/2002 Outpatient Historical [facility] Primary Care - [address] [place] [address] [place] [address] Liam Rubin MD NO ADDRESS ON FILE Social History Tobacco Use Types Packs/Day Years Used Date Smoking Tobacco: Never Assessed Sex and Gender Information Value Date Recorded Sex Assigned at Not on file Legal Sex Male 2:38 AM TUGBOAT ENGINEER Gender Identity Not on file Sexual Orientation Not on file documented as of this encounter Plan of Treatment Upcoming Encounters Date Type Department Care Team (Late st Contact Info) Description 08/17/2024 9:45 AM CDT Office Visit [facility] Heart and Vascular At [facility] [address] [facility] [address] [place] [address] Atif Stover MD [address] [facility] [address] [place] [address] 06/15/2025 9:15 AM CDT Office Visit [facility] Hepatology [address] [facility] [place] [address] Al Ervin MD [address] [facility] [address] [facility] [place] [address] documented as of this encounter Visit Diagnoses Not on filedocumented in this encounter Additional Health Concerns Infection Onset Date Last Indicated Resolved Time R/O COVID-19 12/24/2019 12/24/2019 12/26/2019 6:02 AM TUGBOAT ENGINEER COVID-19 12/24/2019 12/24/2019 01/23/2020 1:16 AM TUGBOAT ENGINEER documented as of this encounter Care Teams Penology Teacher Relationship Specialty Start Date End Date Chandu Urbina MD PCP - General Family Practice 06/12/23 11/13/23 documented as of this encounter
--- OUTSIDE RECORDS SUMMARY | 2024-06-30 14:18 | XMS_ITS | Encounter Summary ---
Author Organization [facility] Address [address] [place] [address] Care Team Providers Care Aircraft Detail Draftsperson Name Role Phone Chandu Urbina MD Primary Care Provider Kimberly le Encounter Details Date Type Department Care Team (Latest Contact Info) Description 12/20/2007 Outpatient Historical [facility] Liam Rubin MD NO ADDRESS ON FILE Pain in Joint, Lower Leg Social History Tobacco Use Types Packs/Day Years Used Date Smoking Tobacco: Never Alcohol Use Standard Drinks/Week Comments Yes 0 (1 standard drink = 0.6 oz pur e alcohol) Sex and Gender Information Value Date Recorded Sex Assigned at Not on file Legal Sex Male 2:38 AM INSTALLATION SUPERVISOR Gender Identity Not on file Sexual Orientation Not on file documented as of this encounter Plan of Treatment Upcoming Encounters Date Type Department Care Team (Late st Contact Info) Description 08/17/2024 9:45 AM CDT Office Visit [facility] Heart and Vascular At [facility] [address] [place] [address] Atif Stover MD [address] [place] [address] 06/15/2025 9:15 AM CDT Office Visit [facility] [address] [place] [address] Al Ervin MD [address] [facility] [place] [address] documented as of this encounter Visit Diagnoses Diagnosis Pain in joint, lower leg documented in this encounter Additional Health Concerns Infection Onset Date Last Indicated Resolved Time R/O COVID-19 12/24/2019 12/24/2019 12/26/2019 6:02 AM INSTALLATION SUPERVISOR COVID-19 12/24/2019 12/24/2019 01/23/2020 1:16 AM INSTALLATION SUPERVISOR documented as of this encounter Care Teams Aircraft Detail Draftsperson Relationship Specialty Start Date End Date Chandu Urbina MD PCP - General Family Practice 06/12/23 11/13/23 documented as of this encounter
--- OUTSIDE RECORDS SUMMARY | 2024-06-30 14:18 | XMS_ITS | Encounter Summary ---
Author Organization [facility] Address [address] [place] [address] Care Team Providers Care Informatics Nurse Specialist Name Role Phone Chandu Urbina MD Primary Care Provider Unavailab le Encounter Details Date Type Department Care Team (Late st Contact Info) Description 11/21/2000 Outpatient Historical [facility] Primary Care - [facility] [address] [place] [address] Aris Tobias MD [address] [place] [address] Social History Tobacco Use Types Packs/Day Years Used Date Smoking Tobacco: Never Assessed Sex and Gender Information Value Date Recorded Sex Assigned at Not on file Legal Sex Male 2:38 AM PARTS COUNTER ASSOCIATE Gender Identity Not on file Sexual Orientation Not on file documented as of this encounter Plan of Treatment Upcoming Encounters Date Type Department Care Team (Late st Contact Info) Description 08/17/2024 9:45 AM CDT Office Visit [facility] Heart and Vascular At [facility] [address] [place] [address] Atif Stover MD [address] [place] [address] 06/15/2025 9:15 AM CDT Office Visit [facility] Hepatology [address] [place] [address] Al Ervin MD [address] [facility] [place] [address] documented as of this encounter Visit Diagnoses Not on filedocumented in this encounter Additional Health Concerns Infection Onset Date Last Indicated Resolved Time R/O COVID-19 12/24/2019 12/24/2019 12/26/2019 6:02 AM PARTS COUNTER ASSOCIATE COVID-19 12/24/2019 12/24/2019 01/23/2020 1:16 AM PARTS COUNTER ASSOCIATE documented as of this encounter Care Teams Informatics Nurse Specialist Relationship Specialty Start Date End Date Chandu Urbina MD PCP - General Family Practice 06/12/23 11/13/23 documented as of this encounter
--- OUTSIDE RECORDS SUMMARY | 2024-06-30 14:18 | XMS_ITS | Encounter Summary ---
Author Organization [facility] Address [address] [place] [address] Care Team Providers Care Radio Interference Expert Name Role Phone Chanud Urbina MD Primary Care Provider Unavailab le Encounter Details Date Type Department Care Team (Late st Contact Info) Description 11/30/1999 Outpatient Historical [facility] Primary Care - [facility] [address] [place] [address] Aris Tobias MD [address] [place] [address] Social History Tobacco Use Types Packs/Day Years Used Date Smoking Tobacco: Never Assessed Sex and Gender Information Value Date Recorded Sex Assigned at Not on file Legal Sex Male 2:38 AM MILLED RUBBER TENDER Gender Identity Not on file Sexual Orientation Not on file documented as of this encounter Plan of Treatment Upcoming Encounters Date Type Department Care Team (Late st Contact Info) Description 08/17/2024 9:45 AM CDT Office Visit [facility] Heart and Vascular At [facility] [address] [place] [address] Atif Stover MD [address] [place] [address] 06/15/2025 9:15 AM CDT Office Visit [facility] Hepatology [address] [place] [address] Al Ervin MD [address] [facility] [place] [address] documented as of this encounter Visit Diagnoses Not on filedocumented in this encounter Additional Health Concerns Infection Onset Date Last Indicated Resolved Time R/O COVID-19 12/24/2019 12/24/2019 12/26/2019 6:02 AM MILLED RUBBER TENDER COVID-19 12/24/2019 12/24/2019 01/23/2020 1:16 AM MILLED RUBBER TENDER documented as of this encounter Care Teams Radio Interference Expert Relationship Specialty Start Date End Date Chandu Urbina MD PCP - General Family Practice 06/12/23 11/13/23 documented as of this encounter
--- OUTSIDE RECORDS SUMMARY | 2024-06-30 14:18 | XMS_ITS | Encounter Summary ---
Author Organization [facility] Address [address] [place] [address] Care Team Providers Care Exchange Trouble Shooter Name Role Phone Chandu Urbina MD Primary Care Provider Unavailab le Encounter Details Date Type Department Care Team (Late st Contact Info) Description 06/15/1999 Outpatient Historical [facility] Primary Care - [facility] [address] [place] [address] Aris Tobias MD [address] [place] [address] Social History Tobacco Use Types Packs/Day Years Used Date Smoking Tobacco: Never Assessed Sex and Gender Information Value Date Recorded Sex Assigned at Not on file Legal Sex Male 2:38 AM SUPERINTENDENT PLANT Gender Identity Not on file Sexual Orientation Not on file documented as of this encounter Plan of Treatment Upcoming Encounters Date Type Department Care Team (Late st Contact Info) Description 08/17/2024 9:45 AM CDT Office Visit [facility] Heart and Vascular At [facility] [address] [place] [address] Atif Stover MD [address] [place] [address] 06/15/2025 9:15 AM CDT Office Visit [facility] Hepatology [address] [place] [address] Al Ervin MD [address] [facility] [place] [address] documented as of this encounter Visit Diagnoses Not on filedocumented in this encounter Additional Health Concerns Infection Onset Date Last Indicated Resolved Time R/O COVID-19 12/24/2019 12/24/2019 12/26/2019 6:02 AM SUPERINTENDENT PLANT COVID-19 12/24/2019 12/24/2019 01/23/2020 1:16 AM SUPERINTENDENT PLANT documented as of this encounter Care Teams Exchange Trouble Shooter Relationship Specialty Start Date End Date Chandu Urbina MD PCP - General Family Practice 06/12/23 11/13/23 documented as of this encounter
--- OUTSIDE RECORDS SUMMARY | 2024-06-30 14:18 | XMS_ITS | Encounter Summary ---
Author Organization [facility] Address [address] [place] [address] Care Team Providers Care Locomotive Operator Helper Name Role Phone Chandu Urbina MD Primary Care Provider Unavailab le Encounter Details Date Type Department Care Team (Late st Contact Info) Description 05/12/2003 Outpatient Historical [facility] Primary Care - [address] [place] [address] Liam Rubin MD NO ADDRESS ON FILE Social History Tobacco Use Types Packs/Day Years Used Date Smoking Tobacco: Never Assessed Sex and Gender Information Value Date Recorded Sex Assigned at Not on file Legal Sex Male 2:38 AM SUEDE BRUSHER Gender Identity Not on file Sexual Orientation Not on file documented as of this encounter Plan of Treatment Upcoming Encounters Date Type Department Care Team (Late st Contact Info) Description 08/17/2024 9:45 AM CDT Office Visit [facility] Heart and Vascular At [facility] [address] [place] [address] Atif Stover MD [address] [place] [address] 06/15/2025 9:15 AM CDT Office Visit [facility] Hepatology [address] [facility] [address] [place] [address] Al Ervin MD [address] [facility] [address] [facility] [place] [address] documented as of this encounter Visit Diagnoses Not on filedocumented in this encounter Additional Health Concerns Infection Onset Date Last Indicated Resolved Time R/O COVID-19 12/24/2019 12/24/2019 12/26/2019 6:02 AM SUEDE BRUSHER COVID-19 12/24/2019 12/24/2019 01/23/2020 1:16 AM SUEDE BRUSHER documented as of this encounter Care Teams Locomotive Operator Helper Relationship Specialty Start Date End Date Chandu Urbina MD PCP - General Family Practice 06/12/23 11/13/23 documented as of this encounter
--- OUTSIDE RECORDS SUMMARY | 2024-06-30 14:18 | XMS_ITS | Encounter Summary ---
Author Organization [facility] Address [address] [place] [address] Care Team Providers Care Bookbinding Machine Operator Name Role Phone Unavailable Primary Care Provider Unavailabl e Encounter Details Date Type Department Care Team (Late st Contact Info) Description 06/28/2024 Results [facility] Hepatology [address] [place] [address] Al Ervin MD [address] [facility] [place] [address] [place] [employer] Social History Tobacco Use Types Packs/Day Years Used Date Smoking Tobacco: Former Cigarettes 1 21 1 04/05/1985 - 02/02/2007 Smokeless Tobacco: Never Comments:Occasional cigar Alcohol Use Standard Drinks/Week Comments Yes 1.7 (1 standard drink = 0.6 oz p ure alcohol) daily Feeling Safe Answer Date Recorded Are you in a relationship wi th someone who hurts you emotionally and/or physically? No 10/24/2023 Sex and Gender Information Value Date Recorded Sex Assigned at Not on file Legal Sex Male 2:38 AM PACKAGE DELIVERY DRIVER Gender Identity Not on file Sexual Orientation Not on file documented as of this encounter Miscellaneous Notes * Result Encounter Note - Al Ervin MD - 06/28/2024 4:50 PM CDT Your FibroScan study was a limited study. The preliminary results suggests modest fatty liver disease but little if any liver scarring or fibrosis. I think rechecking in about a year would be prudentso please continue your follow-up with us. I see that you have an appointment in June of next year which would be perfect. documented in this encounter Plan of Treatment Upcoming Encounters Date Type Department Care Team (Late st Contact Info) Description 08/17/2024 9:45 AM CDT Office Visit [facility] Heart and Vascular At [facility] [address] [place] [address] Atif Stover MD [address] [place] [address] 06/15/2025 9:15 AM CDT Office Visit [facility] Hepatology [address] [place] [address] Al Ervin MD [address] [facility] [place] [address] documented as of this encounter Visit Diagnoses Not on filedocumented in this encounter
--- OUTSIDE RECORDS SUMMARY | 2024-06-30 14:18 | XMS_ITS | Encounter Summary ---
Author Organization [facility] Address [address] [place] [address] Care Team Providers Care Jboss Developer Name Role Phone Chandu Urbina MD Primary [...] on file Legal Sex Male 2:38 AM DEMOLITION WORKER Gender Identity Not on file Sexual Orientation Not on file documented as of this encounter Plan of Treatment Upcoming Encounters Date Type Department Care Team (Late st Contact Info) Description 08/17/2024 9:45 AM CDT Office Visit [facility] Heart and Vascular At [facility] [address] [place] [address] Atif Stover MD [address] [place] [address] 06/15/2025 9:15 AM CDT Office Visit [facility] Hepatology [address] [place] [address] Al Ervin MD [address] [facility] [place] [address] documented as of this encounter Visit Diagnoses Diagnosis Coronary atherosclerosis of unspecified type of vessel, [place] or graft Other chest pain documented in this encounter Additional Health Concerns Infection Onset Date Last Indicated Resolved Time R/O COVID-19 12/24/2019 12/24/2019 12/26/2019 6:02 AM DEMOLITION WORKER COVID-19 12/24/2019 12/24/2019 01/23/2020 1:16 AM DEMOLITION WORKER documented as of this encounter Care Teams Jboss Developer Relationship Specialty Start Date End Date Chandu Urbina MD PCP - General Family Practice 06/12/23 11/13/23 documented as of this encounter
--- OUTSIDE RECORDS SUMMARY | 2024-06-30 14:18 | XMS_ITS | Encounter Summary ---
Author Organization [facility] Address [address] [place] [address] Care Team Providers Care Rock Picker Name Role Phone Chandu Urbina MD Primary Care Provider Unavailab le Encounter Details Date Type Department Care Team (Late st Contact Info) Description 06/12/2001 Outpatient Historical [facility] Primary Care - [facility] [address] [place] [address] Aris Tobias MD [address] [place] [address] Social History Tobacco Use Types Packs/Day Years Used Date Smoking Tobacco: Never Assessed Sex and Gender Information Value Date Recorded Sex Assigned at Not on file Legal Sex Male 2:38 AM WET CHEMISTRY ANALYST Gender Identity Not on file Sexual Orientation Not on file documented as of this encounter Plan of Treatment Upcoming Encounters Date Type Department Care Team (Late st Contact Info) Description 08/17/2024 9:45 AM CDT Office Visit [facility] Heart and Vascular At [facility] [address] [place] [address] Atif Stover MD [address] [place] [address] 06/15/2025 9:15 AM CDT Office Visit [facility] Hepatology [address] [place] [address] Al Ervin MD [address] [facility] [place] [address] documented as of this encounter Visit Diagnoses Not on filedocumented in this encounter Additional Health Concerns Infection Onset Date Last Indicated Resolved Time R/O COVID-19 12/24/2019 12/24/2019 12/26/2019 6:02 AM WET CHEMISTRY ANALYST COVID-19 12/24/2019 12/24/2019 01/23/2020 1:16 AM WET CHEMISTRY ANALYST documented as of this encounter Care Teams Rock Picker Relationship Specialty Start Date End Date Chandu Urbina MD PCP - General Family Practice 06/12/23 11/13/23 documented as of this encounter
--- OUTSIDE RECORDS SUMMARY | 2024-06-30 14:18 | XMS_ITS | Encounter Summary ---
Author Organization [facility] Address [address] [place] [address] Care Team Providers Care Slip Mixer Name Role Phone Chandu Urbina MD Primary Care Provider Unavailab le Encounter Details Date Type Department Care Team (Late st Contact Info) Description 01/12/1998 Outpatient Historical [facility] Primary Care - [facility] [address] [place] [address] Aris Tobias MD [address] [place] [address] Social History Tobacco Use Types Packs/Day Years Used Date Smoking Tobacco: Never Assessed Sex and Gender Information Value Date Recorded Sex Assigned at Not on file Legal Sex Male 2:38 AM ACCOUNT INFORMATION CLERK Gender Identity Not on file Sexual Orientation Not on file documented as of this encounter Plan of Treatment Upcoming Encounters Date Type Department Care Team (Late st Contact Info) Description 08/17/2024 9:45 AM CDT Office Visit [facility] Heart and Vascular At [facility] [address] [place] [address] Atif Stover MD [address] [place] [address] 06/15/2025 9:15 AM CDT Office Visit [facility] Hepatology [address] [place] [address] Al Ervin MD [address] [facility] [place] [address] documented as of this encounter Visit Diagnoses Not on filedocumented in this encounter Additional Health Concerns Infection Onset Date Last Indicated Resolved Time R/O COVID-19 12/24/2019 12/24/2019 12/26/2019 6:02 AM ACCOUNT INFORMATION CLERK COVID-19 12/24/2019 12/24/2019 01/23/2020 1:16 AM ACCOUNT INFORMATION CLERK documented as of this encounter Care Teams Slip Mixer Relationship Specialty Start Date End Date Chandu Urbina MD PCP - General Family Practice 06/12/23 11/13/23 documented as of this encounter
--- OUTSIDE RECORDS SUMMARY | 2024-06-30 14:18 | XMS_ITS | Encounter Summary ---
Author Organization [facility] Address [address] [place] [address] Care Team Providers Care Police Investigator Name Role Phone Chandu Urbina MD Primary Care Provider Unavailab le Encounter Details Date Type Department Care Team (Late st Contact Info) Description 05/09/2007 Outpatient Historical [facility] Primary Care - [address] [place] [address] Liam Rubin MD NO ADDRESS ON FILE Social History Tobacco Use Types Packs/Day Years Used Date Smoking Tobacco: Never Assessed Sex and Gender Information Value Date Recorded Sex Assigned at Not on file Legal Sex Male 2:38 AM MARKETING COPYWRITER Gender Identity Not on file Sexual Orientation Not on file documented as of this encounter Plan of Treatment Upcoming Encounters Date Type Department Care Team (Late st Contact Info) Description 08/17/2024 9:45 AM CDT Office Visit [facility] Heart and Vascular At [facility] [address] [place] [address] Atif Stover MD [address] [place] [address] 06/15/2025 9:15 AM CDT Office Visit [facility] Hepatology [address] [place] [address] Al Ervin MD [address] [facility] [address] [facility] [place] [address] documented as of this encounter Visit Diagnoses Not on filedocumented in this encounter Additional Health Concerns Infection Onset Date Last Indicated Resolved Time R/O COVID-19 12/24/2019 12/24/2019 12/26/2019 6:02 AM MARKETING COPYWRITER COVID-19 12/24/2019 12/24/2019 01/23/2020 1:16 AM MARKETING COPYWRITER documented as of this encounter Care Teams Police Investigator Relationship Specialty Start Date End Date Chandu Urbina MD PCP - General Family Practice 06/12/23 11/13/23 documented as of this encounter
--- OUTSIDE RECORDS SUMMARY | 2024-06-30 14:18 | XMS_ITS | Encounter Summary ---
Author Organization [facility] Address [address] [place] [address] Care Team Providers Care Linemarker Name Role Phone Chandu Urbina MD Primary Care Provider Unavailab le Encounter Details Date Type Department Care Team (Late st Contact Info) Description 06/05/2007 Outpatient Historical [facility] Primary Care - [address] [place] [address] Liam Rubin MD NO ADDRESS ON FILE Social History Tobacco Use Types Packs/Day Years Used Date Smoking Tobacco: Never Assessed Sex and Gender Information Value Date Recorded Sex Assigned at Not on file Legal Sex Male 2:38 AM CONTACT LENS FITTER Gender Identity Not on file Sexual Orientation Not on file documented as of this encounter Plan of Treatment Upcoming Encounters Date Type Department Care Team (Late st Contact Info) Description 08/17/2024 9:45 AM CDT Office Visit [facility] Heart and Vascular At [facility] [address] [place] [address] Atif Stover MD [address] [place] [address] 06/15/2025 9:15 AM CDT Office Visit [facility] Hepatology [address] [facility] [place] [address] Al Ervin MD [address] [facility] [address] [facility] [place] [address] documented as of this encounter Visit Diagnoses Not on filedocumented in this encounter Additional Health Concerns Infection Onset Date Last Indicated Resolved Time R/O COVID-19 12/24/2019 12/24/2019 12/26/2019 6:02 AM CONTACT LENS FITTER COVID-19 12/24/2019 12/24/2019 01/23/2020 1:16 AM CONTACT LENS FITTER documented as of this encounter Care Teams Linemarker Relationship Specialty Start Date End Date Chandu Urbina MD PCP - General Family Practice 06/12/23 11/13/23 documented as of this encounter
--- OUTSIDE RECORDS SUMMARY | 2024-06-30 14:18 | XMS_ITS | Encounter Summary ---
Author Organization [facility] Address [address] [place] [address] Care Team Providers Care Informal Waiter/Waitress Name Role Phone Chandu Urbina MD Primary Care Provider Unavail le Encounter Details Date Type Department Care Team (Latest Contact Info) Description 06/10/2007 Outpatient Historical [facility] Jose Angel Bueno MD NO ADDRESS ON FILE Nonspecific Abnormal Electrocardiogram (ECG) (EKG) Social History Tobacco Use Types Packs/Day Years Used Date Smoking Tobacco: Never Assessed Sex and Gender Information Value Date Recorded Sex Assigned at Not on file Legal Sex Male 2:38 AM COMPUTER SYSTEMS ADMINISTRATOR Gender Identity Not on file Sexual Orientation Not on file documented as of this encounter Plan of Treatment Upcoming Encounters Date Type Department Care Team (Late st Contact Info) Description 08/17/2024 9:45 AM CDT Office Visit [facility] Heart and Vascular At [facility] [address] [place] [address] Atif Stover MD [address] [place] [address] 06/15/2025 9:15 AM CDT Office Visit [facility] Hepatology [address] [place] [address] Al Ervin MD [address] [facility] [place] [address] documented as of this encounter Procedures Procedure Name Priority Date/Time Associated Diagnosis Comments CBC WITH DIFFERENTIAL Routine 06/10/2007 2:04 PM CDT PROTIME-INR Routine 06/10/2007 2:04 PM CDT BASIC METABOLIC PANEL Routine 06/10/2007 2:04 PM CDT documented in this encounter Results * PROTIME-INR (06/10/2007 2:04 PM CDT) PROTIME 14.1 12.7 - 15.1 Seconds [facility] INR 1.1 0.9 - 1.1 [facility] Comment: INR Therapeutic Range: Adult: 2.0 - 3.0 for pulmonary embolism or prophylaxis against venous thrombosis or systemic embolization. 2.0 - 3.0 for patients with tissue heart valves. 2.5 - 3.5 for patients with mechanical heart valves or post MS. Pediatric (12 years and under): 1.5 - [...] Bueno MD HEMATOLOGY ORDERABLES Final Resu lt [facility] [address] [place], [place] [address] * (ABNORMAL) CBC WITH DIFFERENTIAL (06/10/2007 2:04 PM CDT) MCV 91.2 82.0 - 99.0 fL [facility] PLATELETS 328 140 - 350 K/uL [facility] HEMOGLOBIN 13.6 13.6 - 16.5 g/dL [facility] RDW 15.5(H) 11.5 - 14.5 % [facility] WBC 6.7 4.0 - 9.8 K/uL [facility] MCH 30.0 27.2 - 32.6 pg [facility] MPV 11.5 9.3 - 12.4 fL [facility] HEMATOCRIT 41.3 40.0 - 48.0 % [facility] RDW-STDEV 51.3(H) 37.1 - 48.7 fL [facility] RBC 4.53 4.50 - 5.40 M/uL [facility] MCHC 32.9 31.5 - 35.5 % [facility] EOSINOPHILS 1 0 - 7 % [facility] EOSINOPHIL ABSOLUTE 0.05 0.00 - 0.70 K/uL [facility] LYMPHOCYTES 49(H) 16 - 45 % [facility] LYMPHOCYTE ABSOLUTE 3.28 0.70 - 4.50 K/uL [facility] BASOPHILS 0 0 - 2 % [facility] BASOPHILS ABSOLUTE 0.02 0.00 - 0.20 K/uL [facility] MONOCYTES 7 3 - 13 % [facility] MONOCYTE ABSOLUTE 0.45 0.10 - 1.30 K/uL [facility] NEUTROPHILS 44(L) 45 - 70 % [facility] NEUTROPHIL ABSOLUTE 2.94 1.90 - 7.00 K/uL [facility] Blood specimen (specimen) 06/10/2007 2:04 PM CDT 06/10/2007 5:42 PM CDT us Jose Angel Bueno MD HEMATOLOGY ORDERABLES Edited INTERFACE SYSTEM Refer to clinic/hospital department [facility] [address] [place] [address] * BASIC METABOLIC PANEL (06/10/2007 2:04 PM CDT) CALCIUM 9.0 8.4 - 10.2 mg/dL [facility] CO2 28 22 - 30 mmol/L [facility] CREATININE 1.14 0.67 - 1.17 mg/dL [facility] POTASSIUM 4.1 3.5 - 4.9 mmol/L [facility] BUN 10 6 - 20 mg/dL [facility] CHLORIDE 105 96 - 108 mmol/L [facility] GLUCOSE 81 65 - 99 mg/dL [facility] SODIUM 142 135 - 145 mmol/L [facility] GFR, >60 >=60 mL/min/1.7 sq meter [facility] GFR >60 >=60 mL/min/1.7 sq meter [facility] Comment: Estimated GFR rate interpretative information for both Americans and non- Americans is available on the [facility] Intranet at: [email or web address] Select: Lab Policies and Procedures Select: Reference Ranges - GFR Blood specimen (specimen) 06/10/2007 2:04 PM CDT 06/10/2007 5:42 PM CDT Jose Angel Bueno MD CHEMISTRY ORDERABLES Edited [facility] [address] [place] [address] documented in this encounter Visit Diagnoses Diagnosis Nonspecific abnormal electrocardiogram (ECG) (EKG) documented in this encounter Additional Health Concerns Infection Onset Date Last Indicated Resolved Time R/O COVID-19 12/24/2019 12/24/2019 12/26/2019 6:02 AM COMPUTER SYSTEMS ADMINISTRATOR COVID-19 12/24/2019 12/24/2019 01/23/2020 1:16 AM COMPUTER SYSTEMS ADMINISTRATOR documented as of this encounter Care Teams Informal Waiter/Waitress Relationship Specialty Start Date End Date Chandu Urbina MD PCP - General Family Practice 06/12/23 11/13/23 documented as of this encounter
--- OUTSIDE RECORDS SUMMARY | 2024-06-30 14:18 | XMS_ITS | Encounter Summary ---
Author Organization [facility] Address [address] [place] [address] Care Team Providers Care Sheet Rock Installer Name Role Phone Chandu Urbina MD Primary Care Provider Unavail le Encounter Details Date Type Department Care Team (Latest Contact Info) Description 06/12/2007 Outpatient Historical [facility] RESPIRATORY THERAPIST Jose Angel Bueno MD NO ADDRESS ON FILE Unspecified Chest Pain Social History Tobacco Use Types Packs/Day Years Used Date Smoking Tobacco: Never Assessed Sex and Gender Information Value Date Recorded Sex Assigned at Not on file Legal Sex Male 2:38 AM FIELD COLLECTOR Gender Identity Not on file Sexual Orientation Not on file documented as of this encounter Plan of Treatment Upcoming Encounters Date Type Department Care Team (Late st Contact Info) Description 08/17/2024 9:45 AM CDT Office Visit [facility] Heart and Vascular At [facility] [address] [place] [address] Atif Stover MD [address] [place] [address] 06/15/2025 9:15 AM CDT Office Visit [facility] Hepatology [address] [place] [address] Al Ervin MD [address] [facility] [place] [address] documented as of this encounter [...] PM CDT) TROPONIN T <0.01 <=0.03 ng/mL [facility] TROPONIN T INTERP Negative [facility] Blood specimen (specimen) 06/13/2007 9:15 PM CDT 06/13/2007 9:22 PM CDT us Jose Angel Bueno MD CHEMISTRY ORDERABLES Edited Performing Organization Address City/[facility]/ZIP Co de Phone Number [facility] [address] [place] [address] * CKMB W/REFLEX CK (06/13/2007 9:15 PM CDT) CKMB 3.8 <=6.7 ng/mL [facility] CKMB INTERP Negative [facility] Blood specimen (specimen) 06/13/2007 9:15 PM CDT 06/13/2007 9:22 PM CDT us Jose Angel Bueno MD CHEMISTRY ORDERABLES Edited [facility] [address] [place] [address] [place] [address] * CL CORONARY ANGIOGRAM (06/13/2007 7:01 PM CDT) Narrative INTERFACE SYSTEM - 06/13/2007 7:01 PM CDT [place] [id number] [email or web address] Cardiac Catheterization Comprehensive Report Patient: Ayden Gray Study ID: [id number] Gender: M : 1950 Age: 56 years Race: 2 Room: Bed: Height: 0 in ( 0 cm ) Study Date: June 13, 2007 Patient status: Outpatient Weight: 218 lb ( 99.1 kg ) Access. #: [id number] POC: Attending MD: Jenn Smart MD: Jenn [...] was performed with a 2.5 x 15mm Page 2 RX balloon. 3 inflation(s) were performed, [...] was performed with a 2.5 x 15mm Page 2 RX balloon. 1 inflation(s) were performed, [...] 17:57:27 Procedure Note Provider, Historical - 06/13/[address] [address] [email or web address] Cardiac Catheterization Comprehensive Report Patient: Ayden Gray Study ID: [id number] Gender: Julien : 1950 Age: 56 years Race: 2 Room: Bed: Height: 0 in ( 0 cm ) Study Date: June 13, 2007 Patient status: Outpatient Weight: 218 lb ( 99.1 kg ) Access. #: [id number] POC: Attending MD: Jenn Smart MD: Jenn [...] ult Performing Organization Address [facility]/ZIP Co de Phone Number INTERFACE SYSTEM Refer to clinic/hospital department * CKMB W/REFLEX CK (06/13/2007 1:15 PM CDT) CKMB 3.4 <=6.7 ng/mL [facility] CKMB INTERP Negative [facility] Blood specimen (specimen) 06/13/2007 1:15 PM CDT 06/13/2007 2:04 PM CDT Jose Angel Bueno MD CHEMISTRY ORDERABLES Edited Performing Organization Address [facility]/Adeptence Co de Phone Number [facility] [address] [place] [address] * TROPONIN (06/13/2007 1:15 PM CDT) TROPONIN T <0.01 <=0.03 ng/mL [facility] TROPONIN T INTERP Negative [facility] Blood specimen (specimen) 06/13/2007 1:15 PM CDT 06/13/2007 2:04 PM CDT Result [facility] us Jose Angel Bueno MD CHEMISTRY ORDERABLES Edited Performing Organization Address [facility] Co de Phone Number [facility] [address] [place] [address] * POC ACTIVATED CLOTTING TIME (06/13/2007 12:22 PM CDT) ACT POC 277 Seconds [facility] Comment: Note sheath pull range change effective 08/03/2005. ACT value for sheath pull at [facility] has been established to be < or = to 140. (See also Nursing Procedures for sheath pull in related nursing areas) Blood specimen (specimen) 06/13/2007 12:22 PM CDT 06/13/2007 12:22 PM CDT us Jose Angel Bueno MD POINT OF CARE TESTING Final Resu lt Performing Organization Address [facility] Co de Phone Number [facility] [address] [place] [address] documented in this encounter Visit Diagnoses Diagnosis Chest pain, unspecified documented in this encounter Additional Health Concerns Infection Onset Date Last Indicated Resolved Time R/O COVID-19 12/24/2019 12/24/2019 12/26/2019 6:02 AM FIELD COLLECTOR COVID-19 12/24/2019 12/24/2019 01/23/2020 1:16 AM FIELD COLLECTOR documented as of this encounter Care Teams Sheet Rock Installer Relationship Specialty Start Date End Date Chandu Urbina MD PCP - General Family Practice 06/12/23 11/13/23 documented as of this encounter
--- OUTSIDE RECORDS SUMMARY | 2024-06-30 14:18 | XMS_ITS | Encounter Summary ---
Author Organization [facility] Address [address] [place] [address] Care Team Providers Care Patient Services Technician Name Role Phone Chandu Urbina MD [...] on file Legal Sex Male 2:38 AM DRIVER EXAMINER Gender Identity Not on file Sexual Orientation Not on file documented as of this encounter Plan of Treatment Upcoming Encounters Date Type Department Care Team (Late st Contact Info) Description 08/17/2024 9:45 AM CDT Office Visit [facility] Heart and Vascular At [facility] [address] [place] [address] Atif Stover MD [address] [place] [address] 06/15/2025 9:15 AM CDT Office Visit [facility] Hepatology [address] [place] [address] Al Ervin MD [address] [facility] [place] [address] documented as of this encounter Visit Diagnoses Diagnosis Coronary atherosclerosis of unspecified type of vessel, [place] or graft Other chest pain documented in this encounter Additional Health Concerns Infection Onset Date Last Indicated Resolved Time R/O COVID-19 12/24/2019 12/24/2019 12/26/2019 6:02 AM DRIVER EXAMINER COVID-19 12/24/2019 12/24/2019 01/23/2020 1:16 AM DRIVER EXAMINER documented as of this encounter Care Teams Patient Services Technician Relationship Specialty Start Date End Date Chandu Urbina MD PCP - General Family Practice 06/12/23 11/13/23 documented as of this encounter
--- OUTSIDE RECORDS SUMMARY | 2024-06-30 14:18 | XMS_ITS | Encounter Summary ---
Author Organization [facility] Address 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 Heart and Vascular At [facility] [address] [place] [address] Atif Stover MD [address] [place] [address] 06/15/2025 9:15 AM CDT Office Visit [facility] Hepatology [address] [place] [address] Al Ervin MD [address] [facility] [place] [address] documented as of this encounter Visit Diagnoses Not on filedocumented in this encounter Additional Health Concerns Infection Onset Date Last Indicated Resolved Time R/O COVID-19 12/24/2019 12/24/2019 12/26/2019 6:02 AM CROP OR GRAIN FARMER COVID-19 12/24/2019 12/24/2019 01/23/2020 1:16 AM CROP OR GRAIN FARMER documented as of this encounter Care Teams Crane Mechanic Relationship Specialty Start Date End Date Chandu Urbina MD PCP - General Family Practice 06/12/23 11/13/23 documented as of this encounter
--- OUTSIDE RECORDS SUMMARY | 2024-06-30 14:18 | XMS_ITS | Encounter Summary ---
Author Organization [facility] Address [address] [place] [address] Care Team Providers Care Project Manager/Team Coach Name Role Phone Chandu Urbina MD Primary Care Provider Unavailab le Encounter Details Date Type Department Care Team (Late st Contact Info) Description 02/23/2000 Outpatient Historical [facility] Primary Care - [facility] [address] [place] [address] Aris Tobias MD [address] [place] [address] Social History Tobacco Use Types Packs/Day Years Used Date Smoking Tobacco: Never Assessed Sex and Gender Information Value Date Recorded Sex Assigned at Not on file Legal Sex Male 2:38 AM TOOL PLANER SET UP OPERATOR Gender Identity Not on file Sexual Orientation Not on file documented as of this encounter Plan of Treatment Upcoming Encounters Date Type Department Care Team (Late st Contact Info) Description 08/17/2024 9:45 AM CDT Office Visit [facility] Heart and Vascular At [facility] [address] [place] [address] Atif Stover MD [address] [place] [address] 06/15/2025 9:15 AM CDT Office Visit [facility] Hepatology [address] [place] [address] Al Ervin MD [address] [facility] [place] [address] documented as of this encounter Visit Diagnoses Not on filedocumented in this encounter Additional Health Concerns Infection Onset Date Last Indicated Resolved Time R/O COVID-19 12/24/2019 12/24/2019 12/26/2019 6:02 AM TOOL PLANER SET UP OPERATOR COVID-19 12/24/2019 12/24/2019 01/23/2020 1:16 AM TOOL PLANER SET UP OPERATOR documented as of this encounter Care Teams Project Manager/Team Coach Relationship Specialty Start Date End Date Chandu Urbina MD PCP - General Family Practice 06/12/23 11/13/23 documented as of this encounter
--- OUTSIDE RECORDS SUMMARY | 2024-06-30 14:18 | XMS_ITS | Encounter Summary ---
Author Organization [facility] Address [address] [place] [address] Care Team Providers Care Xerox Machine Assembler Name Role Phone Chandu Urbina MD Primary Care Provider Unavailab le Encounter Details Date Type Department Care Team (Late st Contact Info) Description 11/08/2004 Outpatient Historical [facility] Primary Care - [address] [place] [address] Liam Rubin MD NO ADDRESS ON FILE Social History Tobacco Use Types Packs/Day Years Used Date Smoking Tobacco: Never Assessed Sex and Gender Information Value Date Recorded Sex Assigned at Not on file Legal Sex Male 2:38 AM MENTAL HEALTH DIRECTOR Gender Identity Not on file Sexual Orientation Not on file documented as of this encounter Plan of Treatment Upcoming Encounters Date Type Department Care Team (Late st Contact Info) Description 08/17/2024 9:45 AM CDT Office Visit [facility] Heart and Vascular At [facility] [address] [place] [address] Atif Stover MD [address] [place] [address] 06/15/2025 9:15 AM CDT Office Visit [facility] Hepatology [address] [place] [address] Al Ervin MD [address] [facility] [place] [address] documented as of this encounter Visit Diagnoses Not on filedocumented in this encounter Additional Health Concerns Infection Onset Date Last Indicated Resolved Time R/O COVID-19 12/24/2019 12/24/2019 12/26/2019 6:02 AM MENTAL HEALTH DIRECTOR COVID-19 12/24/2019 12/24/2019 01/23/2020 1:16 AM MENTAL HEALTH DIRECTOR documented as of this encounter Care Teams Xerox Machine Assembler Relationship Specialty Start Date End Date Chandu Urbina MD PCP - General Family Practice 06/12/23 11/13/23 documented as of this encounter
--- OUTSIDE RECORDS SUMMARY | 2024-06-30 14:18 | XMS_ITS | Encounter Summary ---
Author Organization [facility] Address [address] [place] [address] Care Team Providers Care Jack Winder Name Role Phone Chandu Urbina MD Primary [...] on file Legal Sex Male 2:38 AM AD COPY WRITER Gender Identity Not on file Sexual Orientation Not on file documented as of this encounter Plan of Treatment Upcoming Encounters Date Type Department Care Team (Late st Contact Info) Description 08/17/2024 9:45 AM CDT Office Visit [facility] Heart and Vascular At [facility] [address] [place] [address] Atif Stover MD [address] [place] [address] 06/15/2025 9:15 AM CDT Office Visit [facility] Hepatology [address] [place] [address] Al Ervin MD [address] [facility] [place] [address] documented as of this encounter Visit Diagnoses Diagnosis Other chest pain documented in this encounter Additional Health Concerns Infection Onset Date Last Indicated Resolved Time R/O COVID-19 12/24/2019 12/24/2019 12/26/2019 6:02 AM AD COPY WRITER COVID-19 12/24/2019 12/24/2019 01/23/2020 1:16 AM AD COPY WRITER documented as of this encounter Care Teams Jack Winder Relationship Specialty Start Date End Date Chandu Urbina MD PCP - General Family Practice 06/12/23 11/13/23 documented as of this encounter
--- OUTSIDE RECORDS SUMMARY | 2024-06-30 14:18 | XMS_ITS | Encounter Summary ---
Author Organization [facility] Address [address] [place] [address] Care Team Providers Care Automatic Data Processing Planner Name Role Phone Chandu Urbina MD Primary Care Provider Unavailab le Encounter Details Date Type Department Care Team (Late st Contact Info) Description 11/10/2003 Outpatient Historical [facility] Primary Care - [address] [place] [address] Liam Rubin MD NO ADDRESS ON FILE Social History Tobacco Use Types Packs/Day Years Used Date Smoking Tobacco: Never Assessed Sex and Gender Information Value Date Recorded Sex Assigned at Not on file Legal Sex Male 2:38 AM CHILD CARE SUPERVISOR Gender Identity Not on file Sexual Orientation Not on file documented as of this encounter Plan of Treatment Upcoming Encounters Date Type Department Care Team (Late st Contact Info) Description 08/17/2024 9:45 AM CDT Office Visit [facility] Heart and Vascular At [facility] [address] [place] [address] Atif Stover MD [address] [place] [address] 06/15/2025 9:15 AM CDT Office Visit [facility] Hepatology [address] [place] [address] Al Ervin MD [address] [facility] [place] [address] documented as of this encounter Visit Diagnoses Not on filedocumented in this encounter Additional Health Concerns Infection Onset Date Last Indicated Resolved Time R/O COVID-19 12/24/2019 12/24/2019 12/26/2019 6:02 AM CHILD CARE SUPERVISOR COVID-19 12/24/2019 12/24/2019 01/23/2020 1:16 AM CHILD CARE SUPERVISOR documented as of this encounter Care Teams Automatic Data Processing Planner Relationship Specialty Start Date End Date Chandu Urbina MD PCP - General Family Practice 06/12/23 11/13/23 documented as of this encounter
--- OUTSIDE RECORDS SUMMARY | 2024-06-30 14:18 | XMS_ITS | Encounter Summary ---
Author Organization [facility] Address [address] [place] [address] Care Team Providers Care School Vocational Educator Name Role Phone Chandu Urbina MD Primary Care Provider Unavailab le Encounter Details Date Type Department Care Team (Late st Contact Info) Description 05/10/2004 Outpatient Historical [facility] Primary Care - [address] [place] [address] Liam Rubin MD NO ADDRESS ON FILE Social History Tobacco Use Types Packs/Day Years Used Date Smoking Tobacco: Never Assessed Sex and Gender Information Value Date Recorded Sex Assigned at Not on file Legal Sex Male 2:38 AM DISTRICT TRAFFIC CHIEF Gender Identity Not on file Sexual Orientation Not on file documented as of this encounter Plan of Treatment Upcoming Encounters Date Type Department Care Team (Late st Contact Info) Description 08/17/2024 9:45 AM CDT Office Visit [facility] Heart and Vascular At [facility] [address] [place] [address] Atif Stover MD [address] [place] [address] 06/15/2025 9:15 AM CDT Office Visit [facility] Hepatology [address] [place] [address] Al Ervin MD [address] [facility] [place] [address] documented as of this encounter Visit Diagnoses Not on filedocumented in this encounter Additional Health Concerns Infection Onset Date Last Indicated Resolved Time R/O COVID-19 12/24/2019 12/24/2019 12/26/2019 6:02 AM DISTRICT TRAFFIC CHIEF COVID-19 12/24/2019 12/24/2019 01/23/2020 1:16 AM DISTRICT TRAFFIC CHIEF documented as of this encounter Care Teams School Vocational Educator Relationship Specialty Start Date End Date Chandu Urbina MD PCP - General Family Practice 06/12/23 11/13/23 documented as of this encounter
--- OUTSIDE RECORDS SUMMARY | 2024-06-30 14:18 | XMS_ITS | Encounter Summary ---
Author Organization [facility] Address [address] [place] [address] Care Team Providers Care Laborer Sawmill Name Role Phone Chandu Urbina MD Primary Care Provider Unavail le Encounter Details Date Type Department Care Team (Latest Contact Info) Description 07/23/2007 [facility] ADDRESS ON FILE Disturbance of Skin Sensation Social History Tobacco Use Types Packs/Day Years Used Date Smoking Tobacco: Never Alcohol Use Standard Drinks/Week Comments Yes 0 (1 standard drink = 0.6 oz pur e alcohol) Sex and Gender Information Value Date Recorded Sex Assigned at Not on file Legal Sex Male 2:38 AM BODY TEAM MEMBER Gender Identity Not on file Sexual Orientation Not on file documented as of this encounter Plan of Treatment Upcoming Encounters Date Type Department Care Team (Late st Contact Info) Description 08/17/2024 9:45 AM CDT Office Visit [facility] Heart and Vascular At [facility] [address] [place] [address] Atif Stover MD [address] [place] [address] 06/15/2025 9:15 AM CDT Office Visit [facility] Hepatology [address] [place] [address] Al Ervin MD [address] [facility] [address] [facility] [place] [address] documented as of this encounter Visit Diagnoses Diagnosis Disturbance of skin sensation documented in this encounter Additional Health Concerns Infection Onset Date Last Indicated Resolved Time R/O COVID-19 12/24/2019 12/24/2019 12/26/2019 6:02 AM BODY TEAM MEMBER COVID-19 12/24/2019 12/24/2019 01/23/2020 1:16 AM BODY TEAM MEMBER documented as of this encounter Care Teams Laborer Sawmill Relationship Specialty Start Date End Date Chandu Urbina MD PCP - General Family Practice 06/12/23 11/13/23 documented as of this encounter
--- OUTSIDE RECORDS SUMMARY | 2024-06-30 14:18 | XMS_ITS | Encounter Summary ---
Author Organization [facility] Address [address] [place] [address] Care Team Providers Care Larry Car Operator Name Role Phone Chandu Urbina MD Primary Care Provider Unavailab le Encounter Details Date Type Department Care Team (Late st Contact Info) Description 05/09/2007 Orders Only [facility] Primary Care - [address] [place] [address] Liam Rubin MD NO ADDRESS ON FILE Social History Tobacco Use Types Packs/Day Years Used Date Smoking Tobacco: Never Assessed Sex and Gender Information Value Date Recorded Sex Assigned at Not on file Legal Sex Male 2:38 AM STRUCTURAL RIGGER Gender Identity Not on file Sexual Orientation Not on file documented as of this encounter Progress Notes * Liam Rubin MD - 07/17/2007 8:03 PM CDT TEMPERATURE: 98.8??f Oral BLOOD PRESSURE: 140/80 Right Arm Sitting WEIGHT: [id number] NURSE NAME: Regina Duarte K ALLERGIES: No [...] subcutaneous nodules or tightening. NEUROLOGIC: CRANIAL NERVES: whizzer operator II-XII grossly intact. DEEP TENDON REFLEXES: Deep tendon reflexes 2+/4 and symmetrical. ASSESSMENT/PLAN: 272.4-HYPERLIPIDEMIA ASSESSMENT: Will not change medication, continue to monitor for complications. Weight loss was encouraged. LAB ORDERS: Order number: [id number] Test Ordered: LIPID PANEL 1078 Order number: [id number] Test Ordered: ALT 1294 305.1-TOBACCO ABUSE ASSESSMENT: The patient continues to refrain from smoking and was strongly advised to continue to refrain from all tobacco products. V76.44-SCREEN FOR CA OF PROSTATE LAB ORDERS: Order number: [id number] Test Ordered: PSA, TOTAL 1002 600.00-BPH W/O OBSTRUCTION Limited symptoms do not require intervention at this timel LAB ORDERS: Order number: [id number] Test Ordered: CREATININE 1790 PREVENTIVE COUNSELING The patient was counseled. Electronically Signed by: Liam Rubin MD on May documented in this encounter Plan of Treatment Upcoming Encounters Date Type Department Care Team (Late st Contact Info) Description 08/17/2024 9:45 AM CDT Office Visit [facility] Heart and Vascular At [facility] [address] [place] [address] Atif Stover MD [address] [facility] [place] [address] 06/15/2025 9:15 AM CDT Office Visit [facility] Hepatology [address] [place] [address] Al Ervin MD [address] [facility] [place] [address] documented as of this encounter Visit Diagnoses Not on filedocumented in this encounter Additional Health Concerns Infection Onset Date Last Indicated Resolved Time R/O COVID-19 12/24/2019 12/24/2019 12/26/2019 6:02 AM STRUCTURAL RIGGER COVID-19 12/24/2019 12/24/2019 01/23/2020 1:16 AM STRUCTURAL RIGGER documented as of this encounter Care Teams Larry Car Operator Relationship Specialty Start Date End Date Chandu Urbina MD PCP - General Family Practice 06/12/23 11/13/23 documented as of this encounter
--- OUTSIDE RECORDS SUMMARY | 2024-06-30 14:18 | XMS_ITS | Encounter Summary ---
Author Organization [facility] Address [address] [place] [address] Care Team Providers Care Yarding Supervisor Name Role Phone Chandu Urbina MD Primary Care Provider Unavailab le Encounter Details Date Type Department Care Team (Late st Contact Info) Description 12/01/1998 Outpatient Historical [facility] Primary Care - [facility] [address] [place] [address] Aris Tobias MD [address] [place] [address] Social History Tobacco Use Types Packs/Day Years Used Date Smoking Tobacco: Never Assessed Sex and Gender Information Value Date Recorded Sex Assigned at Not on file Legal Sex Male 2:38 AM NARROW GAUGE ENGINEER Gender Identity Not on file Sexual Orientation Not on file documented as of this encounter Plan of Treatment Upcoming Encounters Date Type Department Care Team (Late st Contact Info) Description 08/17/2024 9:45 AM CDT Office Visit [facility] Heart and Vascular At [facility] [address] [address] Atif Stover MD [address] [facility] [facility] [facility] [address] 06/15/2025 9:15 AM CDT Office Visit [facility] Hepatology [address] [address] Al Ervin MD [address] [facility] [place] [address] documented as of this encounter Visit Diagnoses Not on filedocumented in this encounter Additional Health Concerns Infection Onset Date Last Indicated Resolved Time R/O COVID-19 12/24/2019 12/24/2019 12/26/2019 6:02 AM NARROW GAUGE ENGINEER COVID-19 12/24/2019 12/24/2019 01/23/2020 1:16 AM NARROW GAUGE ENGINEER documented as of this encounter Care Teams Yarding Supervisor Relationship Specialty Start Date End Date Chandu Urbina MD PCP - General Family Practice 06/12/23 11/13/23 documented as of this encounter
--- OUTSIDE RECORDS SUMMARY | 2024-06-30 14:18 | XMS_ITS | Encounter Summary ---
Author Organization [facility] Address [address] [place] [address] Care Team Providers Care Legislative Analyst Name Role Phone Chandu Urbina MD Primary Care Provider Unavailab le Encounter Details Date Type Department Care Team (Late st Contact Info) Description 05/08/2001 Outpatient Historical [facility] Primary Care - [address] [place] [address] Franco Sandra Social History Tobacco Use Types Packs/Day Years Used Date Smoking Tobacco: Never Assessed Sex and Gender Information Value Date Recorded Sex Assigned at Not on file Legal Sex Male 2:38 AM CUSTOMER SERVICE TECHNICIAN Gender Identity Not on file Sexual Orientation Not on file documented as of this encounter Plan of Treatment Upcoming Encounters Date Type Department Care Team (Late st Contact Info) Description 08/17/2024 9:45 AM CDT Office Visit [facility] Heart and Vascular At [facility] [address] [place] [address] Atif Stover MD [address] [place] [address] 06/15/2025 9:15 AM CDT Office Visit [facility] Hepatology [address] [place] [address] Al Ervin MD [address] [facility] [place] [address] documented as of this encounter Visit Diagnoses Not on filedocumented in this encounter Additional Health Concerns Infection Onset Date Last Indicated Resolved Time R/O COVID-19 12/24/2019 12/24/2019 12/26/2019 6:02 AM CUSTOMER SERVICE TECHNICIAN COVID-19 12/24/2019 12/24/2019 01/23/2020 1:16 AM CUSTOMER SERVICE TECHNICIAN documented as of this encounter Care Teams Legislative Analyst Relationship Specialty Start Date End Date Chandu Urbina MD PCP - General Family Practice 06/12/23 11/13/23 documented as of this encounter
--- OUTSIDE RECORDS SUMMARY | 2024-06-30 14:18 | XMS_ITS | Encounter Summary ---
Author Organization [facility] Address [address] [place] [address] Care Team Providers Care Geosciences Associate Professor Name Role Phone Chandu Urbina MD Primary Care Provider Unavail le Encounter Details Date Type Department Care Team (Latest Contact Info) Description 05/07/2008 Outpatient Historical [facility], [address] Liam Rubin MD NO ADDRESS ON FILE Cor Athrscl-Uns Vessel Social History Tobacco Use Types Packs/Day Years Used Date Smoking Tobacco: Never Alcohol Use Standard Drinks/Week Comments Yes 0 (1 standard drink = 0.6 oz pur e alcohol) Sex and Gender Information Value Date Recorded Sex Assigned at Not on file Legal Sex Male 2:38 AM TREE DEADENER Gender Identity Not on file Sexual Orientation Not on file documented as of this encounter Plan of Treatment Upcoming Encounters Date Type Department Care Team (Late st Contact Info) Description 08/17/2024 9:45 AM CDT Office Visit [facility] Heart and Vascular At [facility] [address] [place] [address] Atif Stover MD [address] [place] [address] 06/15/2025 9:15 AM CDT Office Visit [facility] Hepatology [address] [place] [address] Al Ervin MD [address] [facility] [place] [address] documented as of this encounter Visit Diagnoses Diagnosis Coronary atherosclerosis of unspecified type of vessel, circle or graft documented in this encounter Additional Health Concerns Infection Onset Date Last Indicated Resolved Time R/O COVID-19 12/24/2019 12/24/2019 12/26/2019 6:02 AM TREE DEADENER COVID-19 12/24/2019 12/24/2019 01/23/2020 1:16 AM TREE DEADENER documented as of this encounter Care Teams Geosciences Associate Professor Relationship Specialty Start Date End Date Chandu Urbina MD PCP - General Family Practice 06/12/23 11/13/23 documented as of this encounter
--- OUTSIDE RECORDS SUMMARY | 2024-06-30 14:18 | XMS_ITS | Encounter Summary ---
Author Organization [facility] Address [address] [place] [address] Care Team Providers Care Shirring Machine Operator Automatic Name Role Phone Chandu Urbina MD Primary Care Provider Unavail le Encounter Details Date Type Department Care Team (Latest Contact Info) Description 05/29/2008 Outpatient Historical [facility], [address] Liam Rubin MD NO ADDRESS ON FILE Urinary Tract Infection, Site not Specified Social History Tobacco Use Types Packs/Day Years Used Date Smoking Tobacco: Never Alcohol Use Standard Drinks/Week Comments Yes 0 (1 standard drink = 0.6 oz pur e alcohol) Sex and Gender Information Value Date Recorded Sex Assigned at Not on file Legal Sex Male 2:38 AM SHRIMP POND LABORER Gender Identity Not on file Sexual Orientation Not on file documented as of this encounter Plan of Treatment Upcoming Encounters Date Type Department Care Team (Late st Contact Info) Description 08/17/2024 9:45 AM CDT Office Visit [facility] Heart and Vascular At [facility] [address] [facility] [address] [address] [place] [address] Aitf Stover MD [address] [facility] [facility] [address] [place] [address] 06/15/2025 9:15 AM CDT Office Visit [facility] Hepatology [address] [place] [address] Al Ervin MD [address] [facility] [place] [address] documented as of this encounter Visit Diagnoses Diagnosis Urinary tract infection, site not specified documented in this encounter Additional Health Concerns Infection Onset Date Last Indicated Resolved Time R/O COVID-19 12/24/2019 12/24/2019 12/26/2019 6:02 AM SHRIMP POND LABORER COVID-19 12/24/2019 12/24/2019 01/23/2020 1:16 AM SHRIMP POND LABORER documented as of this encounter Care Teams Shirring Machine Operator Automatic Relationship Specialty Start Date End Date Chandu Urbina MD PCP - General Family Practice 06/12/23 11/13/23 documented as of this encounter
--- OUTSIDE RECORDS SUMMARY | 2024-06-30 14:18 | XMS_ITS | Encounter Summary ---
Author Organization [facility] Address [address] [place] [address] Care Team Providers Care Electronic Systems Technician Name Role Phone Chandu Urbina MD Primary Care Provider Unavailab le Encounter Details Date Type Department Care Team (Latest Contact Info) Description 06/15/1999 Outpatient Historical [facility] [address] [place] [address] Pain in joint, shoulder region (Primary Dx) Social History Tobacco Use Types Packs/Day Years Used Date Smoking Tobacco: Never Assessed Sex and Gender Information Value Date Recorded Sex Assigned at Not on file Legal Sex Male 2:38 AM SKID ADZER Gender Identity Not on file Sexual Orientation Not on file documented as of this encounter Plan of Treatment Upcoming Encounters Date Type Department Care Team (Late st Contact Info) Description 08/17/2024 9:45 AM CDT Office Visit [facility] Heart and Vascular At [facility] [address] [place] [address] Atif Stover MD [address] [address] [place] [address] 06/15/2025 9:15 AM CDT Office Visit [facility] Hepatology [address] [place] [address] Al Ervin MD [address] [facility] Hepatology [place] [address] documented as of this encounter Visit Diagnoses Diagnosis Pain in joint, shoulder region- Primary documented in this encounter Additional Health Concerns Infection Onset Date Last Indicated Resolved Time R/O COVID-19 12/24/2019 12/24/2019 12/26/2019 6:02 AM SKID ADZER COVID-19 12/24/2019 12/24/2019 01/23/2020 1:16 AM SKID ADZER documented as of this encounter Care Teams Electronic Systems Technician Relationship Specialty Start Date End Date Chandu Urbina MD PCP - General Family Practice 06/12/23 11/13/23 documented as of this encounter
--- OUTSIDE RECORDS SUMMARY | 2024-06-30 14:18 | XMS_ITS | Encounter Summary ---
Author Organization [facility] Address [address] [place] [address] Care Team Providers Care Stitcher Around Name Role Phone Chandu Urbina MD Primary Care Provider Unavailab le Encounter Details Date Type Department Care Team (Late st Contact Info) Description 06/05/2007 Outpatient Historical [facility] Primary Care - [address] [place] [address] Liam Rubin MD NO ADDRESS ON FILE Social History Tobacco Use Types Packs/Day Years Used Date Smoking Tobacco: Never Assessed Sex and Gender Information Value Date Recorded Sex Assigned at Not on file Legal Sex Male 2:38 AM INGOT WEIGHER Gender Identity Not on file Sexual Orientation Not on file documented as of this encounter Plan of Treatment Upcoming Encounters Date Type Department Care Team (Late st Contact Info) Description 08/17/2024 9:45 AM CDT Office Visit [facility] Heart and Vascular At [facility] [address] [address] [place] [address] Atif Stover MD [address] [facility] [address] [place] [address] 06/15/2025 9:15 AM CDT Office Visit [facility] Hepatology [address] [place] [address] Al Ervin MD [address] [facility] [place] [address] documented as of this encounter Visit Diagnoses Not on filedocumented in this encounter Additional Health Concerns Infection Onset Date Last Indicated Resolved Time R/O COVID-19 12/24/2019 12/24/2019 12/26/2019 6:02 AM INGOT WEIGHER COVID-19 12/24/2019 12/24/2019 01/23/2020 1:16 AM INGOT WEIGHER documented as of this encounter Care Teams Stitcher Around Relationship Specialty Start Date End Date Chandu Urbina MD PCP - General Family Practice 06/12/23 11/13/23 documented as of this encounter
--- OUTSIDE RECORDS SUMMARY | 2024-06-30 14:18 | XMS_ITS | Encounter Summary ---
Author Organization [facility] Address [address] [place] [address] Care Team Providers Care Medical Anthropologist Name Role Phone Chandu Urbina MD Primary Care Provider Unavailab le Encounter Details Date Type Department Care Team (Late st Contact Info) Description 09/27/1999 Outpatient Historical [facility] Primary Care - [facility] [address] [place] [address] Aris Tobias MD [address] [place] [address] Social History Tobacco Use Types Packs/Day Years Used Date Smoking Tobacco: Never Assessed Sex and Gender Information Value Date Recorded Sex Assigned at Not on file Legal Sex Male 2:38 AM AUTOMOTIVE ALIGNMENT SPECIALIST Gender Identity Not on file Sexual Orientation Not on file documented as of this encounter Plan of Treatment Upcoming Encounters Date Type Department Care Team (Late st Contact Info) Description 08/17/2024 9:45 AM CDT Office Visit [facility] Heart and Vascular At [facility] [address] [facility] [place] [address] Atif Stover MD [address] [facility] [place] [address] 06/15/2025 9:15 AM CDT Office Visit [facility] Hepatology [address] [place] [address] Al Ervin MD [address] [facility] [place] [address] documented as of this encounter Visit Diagnoses Not on filedocumented in this encounter Additional Health Concerns Infection Onset Date Last Indicated Resolved Time R/O COVID-19 12/24/2019 12/24/2019 12/26/2019 6:02 AM AUTOMOTIVE ALIGNMENT SPECIALIST COVID-19 12/24/2019 12/24/2019 01/23/2020 1:16 AM AUTOMOTIVE ALIGNMENT SPECIALIST documented as of this encounter Care Teams Medical Anthropologist Relationship Specialty Start Date End Date Chandu Urbina MD PCP - General Family Practice 06/12/23 11/13/23 documented as of this encounter
--- OUTSIDE RECORDS SUMMARY | 2024-06-30 14:18 | XMS_ITS | Encounter Summary ---
Author Organization [facility] Address [address] [place] [address] Care Team Providers Care Digital Media Specialist Name Role Phone Chandu Urbina MD Primary Care Provider Unavailab le Encounter Details Date Type Department Care Team (Late st Contact Info) Description 06/05/2007 Outpatient Historical [facility] Primary Care - [address] [place] [address] Liam Rubin MD NO ADDRESS ON FILE Social History Tobacco Use Types Packs/Day Years Used Date Smoking Tobacco: Never Assessed Sex and Gender Information Value Date Recorded Sex Assigned at Not on file Legal Sex Male 2:38 AM PLANT CUSTODIAN Gender Identity Not on file Sexual Orientation Not on file documented as of this encounter Plan of Treatment Upcoming Encounters Date Type Department Care Team (Late st Contact Info) Description 08/17/2024 9:45 AM CDT Office Visit [facility] Heart and Vascular At [facility] [address] [facility] [facility] [address] [place] [address] Atif Stover MD [address] [facility] [address] [place] [address] 06/15/2025 9:15 AM CDT Office Visit [facility] Hepatology [address] [place] [address] Al Ervin MD [address] [facility] [place] [address] documented as of this encounter Visit Diagnoses Not on filedocumented in this encounter Additional Health Concerns Infection Onset Date Last Indicated Resolved Time R/O COVID-19 12/24/2019 12/24/2019 12/26/2019 6:02 AM PLANT CUSTODIAN COVID-19 12/24/2019 12/24/2019 01/23/2020 1:16 AM PLANT CUSTODIAN documented as of this encounter Care Teams Digital Media Specialist Relationship Specialty Start Date End Date Chandu Urbina MD PCP - General Family Practice 06/12/23 11/13/23 documented as of this encounter
--- OUTSIDE RECORDS SUMMARY | 2024-06-30 14:18 | XMS_ITS | Clinical Summary ---
Author Organization [facility] Address [address] [facility] [place] [address] Care Team Providers Care Developer Automatic Name Role Phone Liam Rubin MD Primary Care Provider [phone] Araceli Morales MD Unavailable [phone] Source Comments [facility],non-owned Affiliates and Associated Physician Practices is amultiple site organization consisting of ambulatory clinics and hospital sitesin [place], [place], [place] and [place]. This disclosure is being madepursuant to the Care Everywhere program and may not contain all information available regarding this patient. 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
--- OUTSIDE RECORDS SUMMARY | 2024-06-30 14:18 | XMS_ITS | Encounter Summary ---
Author Organization [facility] Address [address] [place] [address] Care Team Providers Care Chestnut Tanner Name Role Phone Chandu Urbina MD Primary Care Provider Unavailab le Encounter Details Date Type Department Care Team (Late st Contact Info) Description 11/08/2004 Outpatient Historical [facility] Primary Care - [address] [place] [address] Liam Rubin MD NO ADDRESS ON FILE Social History Tobacco Use Types Packs/Day Years Used Date Smoking Tobacco: Never Assessed Sex and Gender Information Value Date Recorded Sex Assigned at Not on file Legal Sex Male 2:38 AM THERMOSTAT MAKER Gender Identity Not on file Sexual Orientation Not on file documented as of this encounter Plan of Treatment Upcoming Encounters Date Type Department Care Team (Late st Contact Info) Description 08/17/2024 9:45 AM CDT Office Visit [facility] Heart and Vascular At [facility] [address] [place] [address] Atif Stover MD [address] [place] [address] 06/15/2025 9:15 AM CDT Office Visit [facility] Hepatology [address] [place] [address] Al Ervin MD [address] [facility] [place] [place] [address] documented as of this encounter Visit Diagnoses Not on filedocumented in this encounter Additional Health Concerns Infection Onset Date Last Indicated Resolved Time R/O COVID-19 12/24/2019 12/24/2019 12/26/2019 6:02 AM THERMOSTAT MAKER COVID-19 12/24/2019 12/24/2019 01/23/2020 1:16 AM THERMOSTAT MAKER documented as of this encounter Care Teams Chestnut Tanner Relationship Specialty Start Date End Date Chandu Urbina MD PCP - General Family Practice 06/12/23 11/13/23 documented as of this encounter
--- OUTSIDE RECORDS SUMMARY | 2024-06-30 14:18 | XMS_ITS | Encounter Summary ---
Author Organization [facility] Address [address] [place] [address] Care Team Providers Care Mobile Marketing Manager Name Role Phone Chandu Urbina MD Primary Care Provider Unavailab le Encounter Details Date Type Department Care Team (Late st Contact Info) Description 08/27/2001 Outpatient Historical [facility] Jaguar Pacheco MD [address] [place] [address] [address] [place] [address] SCREENING MAL NEOP-COLON (Primary Dx) Social History Tobacco Use Types Packs/Day Years Used Date Smoking Tobacco: Never Assessed Sex and Gender Information Value Date Recorded Sex Assigned at Not on file Legal Sex Male 2:38 AM PHOTOGRAPHIC ARTIST Gender Identity Not on file Sexual Orientation Not on file documented as of this encounter Plan of Treatment Upcoming Encounters Date Type Department Care Team (Late Contact Info) Description 08/17/2024 9:45 AM CDT Office Visit [facility] [address] [place] [address] Atif Stover MD [address] [address] [facility] [address] [place] [address] 06/15/2025 9:15 AM CDT Office Visit [facility] Hepatology [address] [place] [address] Al Ervin MD [address] [facility] [place] [address] documented as of this encounter Visit Diagnoses Diagnosis Special screening for malignant neoplasms, colon- Primary documented in this encounter Additional Health Concerns Infection Onset Date Last Indicated Resolved Time R/O COVID-19 12/24/2019 12/24/2019 12/26/2019 6:02 AM PHOTOGRAPHIC ARTIST COVID-19 12/24/2019 12/24/2019 01/23/2020 1:16 AM PHOTOGRAPHIC ARTIST documented as of this encounter Care Teams Mobile Marketing Manager Relationship Specialty Start Date End Date Chandu Urbina MD PCP - General Family Practice 06/12/23 11/13/23 documented as of this encounter
--- OUTSIDE RECORDS SUMMARY | 2024-06-30 14:18 | XMS_ITS | Encounter Summary ---
Author Organization [facility] Address [address] [place] [address] Care Team Providers Care Skidder Operator Name Role Phone Chandu Urbina MD [...] on file Legal Sex Male 2:38 AM BOX ORDER PERSON Gender Identity Not on file Sexual Orientation Not on file documented as of this encounter Plan of Treatment Upcoming Encounters Date Type Department Care Team (Late st Contact Info) Description 08/17/2024 9:45 AM CDT Office Visit [facility] Heart and V[facility] At [facility] [address] [place] [address] Atif Stover MD [address] [place] [address] 06/15/2025 9:15 AM CDT Office Visit [facility] Hepatology [address] [place] [address] Al Ervin MD [address] [facility] [place] [address] documented as of this encounter Procedures Procedure Name Priority Date/Time Associated Diagnosis Comments ECHO STRESS TEST EXERCISE WO ECG Routine 06/06/2007 1:55 PM CDT documented in this encounter Results * ECHOCARDIOGRAM STRESS TEST (06/06/2007 1:55 PM CDT) Narrative INTERFACE SYSTEM - 06/06/2007 1:55 PM CDT [facility] [address] [place] [address] [email or web address] Stress Study Patient: Ayden Gray MRN: Study ID: ADULT STRESS ECH Gender: M : 1950 Age: 56 years Race: 2 Room: Bed: Height: Study Date: June 06, 2007 Patient status: Outpatient Weight: Access. #: [id number] POC: Ordering: Virginie Attending MD: Virginie Admitting [...] peak heart rate and blood pressure [place] [address]. - The patient experienced chest pain during [...] 13:38:23 Procedure Note Provider, Historical - 06/06/2007 [facility] [address] [place] [address] [email or web address] Stress Study Patient: Ayden Gray MRN: Study ID: ADULT STRESS ECH Gender: Julien : 1950 Age: 56 years Race: 2 Room: Bed: Height: Study Date: June 06, 2007 Patient status: Outpatient Weight: Access. #: [id number] POC: Ordering: Virginie Attending MD: Virginie Admitting [...] the peak heart rate and blood pressurewas 41529. - The patient experienced chest pain during [...] MD ORDERABLES Final Result Performing Organization Address City/State/[facility] Co de Phone Number INTERFACE SYSTEM Refer to clinic/hospital department documented in this encounter Visit Diagnoses Diagnosis Chest pain, unspecified documented in this encounter Additional Health Concerns Infection Onset Date Last Indicated Resolved Time R/O COVID-19 12/24/2019 12/24/2019 12/26/2019 6:02 AM BOX ORDER PERSON COVID-19 12/24/2019 12/24/2019 01/23/2020 1:16 AM BOX ORDER PERSON documented as of this encounter Care Teams Skidder Operator Relationship Specialty Start Date End Date Chandu Urbina MD PCP - General Family Practice 06/12/23 11/13/23 documented as of this encounter
--- OUTSIDE RECORDS SUMMARY | 2024-06-30 14:18 | XMS_ITS | Encounter Summary ---
Author Organization [facility] Address [address] [place] [address] Care Team Providers Care Ornamental Metalwork Designer Name Role Phone Chandu Urbina MD Primary Care Provider Unavailab le Encounter Details Date Type Department Care Team (Late st Contact Info) Description 01/26/2002 Outpatient Historical [facility] Primary Care - [facility] [address] [place] [address] Aris Tobias MD [address] [place] [address] Social History Tobacco Use Types Packs/Day Years Used Date Smoking Tobacco: Never Assessed Sex and Gender Information Value Date Recorded Sex Assigned at Not on file Legal Sex Male 2:38 AM WALNUT DEHYDRATOR OPERATOR Gender Identity Not on file Sexual Orientation Not on file documented as of this encounter Plan of Treatment Upcoming Encounters Date Type Department Care Team (Late st Contact Info) Description 08/17/2024 9:45 AM CDT Office Visit [facility] Heart and Vascular At [facility] [address] [place] [address] Atif Stover MD [address] [place] [address] 06/15/2025 9:15 AM CDT Office Visit [facility] Hepatology [address] [place] [address] Al Ervin MD [address] [facility] [place] [address] documented as of this encounter Visit Diagnoses Not on filedocumented in this encounter Additional Health Concerns Infection Onset Date Last Indicated Resolved Time R/O COVID-19 12/24/2019 12/24/2019 12/26/2019 6:02 AM WALNUT DEHYDRATOR OPERATOR COVID-19 12/24/2019 12/24/2019 01/23/2020 1:16 AM WALNUT DEHYDRATOR OPERATOR documented as of this encounter Care Teams Ornamental Metalwork Designer Relationship Specialty Start Date End Date Chandu Urbina MD PCP - General Family Practice 06/12/23 11/13/23 documented as of this encounter
--- OUTSIDE RECORDS SUMMARY | 2024-06-30 14:18 | XMS_ITS | Encounter Summary ---
Author Organization [facility] Address [address] [place] [address] Care Team Providers Care Director Mobile Media Solutions Name Role Phone Chandu Urbina MD Primary Care Provider Unavailab le Encounter Details Date Type Department Care Team (Late st Contact Info) Description 04/17/1999 Outpatient Historical [facility] Primary Care - [facility] [address] [place] [address] Aris Tobias MD [address] [place] [address] Social History Tobacco Use Types Packs/Day Years Used Date Smoking Tobacco: Never Assessed Sex and Gender Information Value Date Recorded Sex Assigned at Not on file Legal Sex Male 2:38 AM MASTIC MAN Gender Identity Not on file Sexual Orientation Not on file documented as of this encounter Plan of Treatment Upcoming Encounters Date Type Department Care Team (Late st Contact Info) Description 08/17/2024 9:45 AM CDT Office Visit [facility] Heart and Vascular At [facility] [address] [place] [address] Atif Stover MD [address] [place] [address] 06/15/2025 9:15 AM CDT Office Visit [facility] Hepatology [address] [place] [address] Al Ervin MD [address] [facility] [place] [address] documented as of this encounter Visit Diagnoses Not on filedocumented in this encounter Additional Health Concerns Infection Onset Date Last Indicated Resolved Time R/O COVID-19 12/24/2019 12/24/2019 12/26/2019 6:02 AM MASTIC MAN COVID-19 12/24/2019 12/24/2019 01/23/2020 1:16 AM MASTIC MAN documented as of this encounter Care Teams Director Mobile Media Solutions Relationship Specialty Start Date End Date Chandu Urbina MD PCP - General Family Practice 06/12/23 11/13/23 documented as of this encounter
--- OUTSIDE RECORDS SUMMARY | 2024-06-30 14:18 | XMS_ITS | Encounter Summary ---
Author Organization [facility] Address [address] [place] [address] Care Team Providers Care Telecommunications Linesworker Name Role Phone Chandu Urbina MD Primary Care Provider Unavail le Encounter Details Date Type Department Care Team (Latest Contact Info) Description 10/30/2007 Outpatient Historical [facility] Heart and Vascular - [facility] [address] [place] [address] [address] [place] [address] Allen Bueno MD NO ADDRESS ON FILE Coronary Atherosclerosis of Tel[place] Coronary Artery Social History Tobacco Use Types Packs/Day Years Used Date Smoking Tobacco: Never Alcohol Use Standard Drinks/Week Comments Yes 0 (1 standard drink = 0.6 oz pur e alcohol) Sex and Gender Information Value Date Recorded Sex Assigned at Not on file Legal Sex Male 2:38 AM INSPECTOR QUALITY ASSURANCE Gender Identity Not on file Sexual Orientation Not on file documented as of this encounter Plan of Treatment Upcoming Encounters Date Type Department Care Team (Late st Contact Info) Description 08/17/2024 9:45 AM CDT Office Visit [facility] Heart [facility] At [facility] [address] [place] [address] Atif Stover MD [address] [facility] [address] [place] [address] 06/15/2025 9:15 AM CDT Office Visit [facility] Hepatology [address] [place] [address] Al Ervin MD [address] [facility] [place] [address] documented as of this encounter Procedures Procedure Name Priority Date/Time Associated Diagnosis Comments NM MYOCARDIAL PERFUSION EF Timed Study 10/30/2007 9:04 AM CDT documented in this encounter Results * NM MYOCARDIAL PERFUSION EF (10/30/2007 9:04 AM CDT) 10/30/2007 9:04 AM CDT Narrative INTERFACE SYSTEM - 10/30/2007 1:46 PM CDT [facility] [address] [place], [place] [address] Admit Date: 10/30/2007 MIRANDA MORALES Sex: M Admit Prov: ALLEN BUENO Date: 1950 Primary Care Prov: NUBIA NEWMAN CMRN: [id number] Room: [facility] SSN: [id number] IMAGING SERVICES Ordering Prov: N/A Accession Number: [id number] Interpretation Date of Procedure: 10/30/2007 Procedure Type: [...] Procedure Note Allen Dinero MD - 10/30/2007 [facility] [address] [place], [place] [address] Admit Date: 10/30/2007 MIRANDA MORALES Sex: M Admit Prov: SHERRY ALLEN James Date: 1950 Primary Care Prov: NUBIA NEWMAN CMRN: [id number] Room: [facility] SSN: [id number] IMAGING SERVICES Ordering Prov: N/A Interpretation Date [...] the patient was injected intravenously with 44.3 [id number] tetrofosmin and exercise was continued for 2 [...] encounter Visit Diagnoses Diagnosis Coronary atherosclerosis of [place] coronary artery documented in this encounter Additional Health Concerns Infection Onset Date Last Indicated Resolved Time R/O COVID-19 12/24/2019 12/24/2019 12/26/2019 6:02 AM INSPECTOR QUALITY ASSURANCE COVID-19 12/24/2019 12/24/2019 01/23/2020 1:16 AM INSPECTOR QUALITY ASSURANCE documented as of this encounter Care Teams Telecommunications Linesworker Relationship Specialty Start Date End Date Chandu Urbina MD PCP - General Family Practice 06/12/23 11/13/23 documented as of this encounter
--- OUTSIDE RECORDS SUMMARY | 2024-06-30 14:18 | XMS_ITS | Clinical Summary ---
Author Organization [facility] Address [address] [place] [address] Care Team Providers Care Benefits Processor Name Role Phone Liam Rubin MD Primary Care Provider [phone] Allergies Active Allergy Reactions Criticality Noted Date [...] Industry Job Start Date Job End Date [employer] [facility] Not on file Not on file Not [...] 11/26/2019, 2018 Medical Devices Implanted Type Area Clerical Associate Device Identifier Shelf Expiration Date Model / Serial / Lot [employer] Orthoblast Ii Allograft Paste Syringe Graft 1cc Bone - [id number] - [id number] Implanted:Qty: 1 on 08/26/2017 by Ulysses Schuler MD at [facility] Left: Radius [employer] 05/09/2019 / [id number] / [id number] [employer] 1318-22-050 Dvr [id number] Crosslock Radius Left Distal Volar Standard Plate - [id number] Implanted:Qty: 1 on 08/26/2017 by Ulysses Schuler MD at [facility] Left: Radius [employer] 1318-22-050 / / [employer] [id number] Dvr 2.7mm 18mm Low Profile Nonlock Hand Cortical Screw Bone - [id number] Implanted:Qty: 2 on 08/26/[address] [facility] Left: Radius [employer] [id number] / / [employer] 1312-27-120 Dvr 2.7mm 20mm Lock Spine Screw Bone Nonsterile - [id number] Implanted:Qty: 1 on 08/26/2017 by Ulysses Schuler MD at [facility] Left: Radius [employer] 1312-27-120 / / [employer] 1312-27-116 Dvr 2.7mm 16mm Lock Radius Distal Volar Square Screw Bone Sterile - [id number] Implanted:Qty: 1 on 08/26/2017 by Ulysses Schuler MD at [facility] Left: Radius [employer] 1312-27-116 / / Screw Lock [address] 2.7 X 26mm - [id number] Implanted:Qty: 2 on 08/26/2017 by Ulysses Schuler MD at [facility] Left: Radius [employer] 1312-27-126 / / [employer] 1312-272-16 2.7mm 16mm Nonlock Low Profile Radius Distal Screw Bone - [id number] Implanted:Qty: 1 on 08/26/2017 by Ulysses Schuler MD at [facility] Left: Radius [employer] 1312-272-16 / / [employer] [id number] [place] 1.6mm Wire Fixation Stainless Steel Nonsterile - [id number] Implanted:Qty: 2 on 08/26/[address] [facility] Left: Radius [employer] [id number] / / Insurance [facility] MDCR HMO [facility] MEDIC[facility] Address: [address] [address] Care Teams Benefits Processor Relationship Specialty Start Date End Date Liam Rubin MD [address] [facility] [address] [place] [address] PCP - General 08/10/17
--- OUTSIDE RECORDS SUMMARY | 2024-06-30 14:19 | XMS_ITS | Clinical Summary ---
Author Organization [facility] Address [address] [place] [address] Phone Care Team Providers Care Box Puller Name Role Phone Unavailable Primary Care Provider [...] 9 Active fluticasone propionate (FLONASE) 50 mcg/spray [place], Suspension nasal inhalerIndicati ons:Middle ear effusion, bilateral [...] be different from the original. 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 Hepatology [address] [facility] [facility] [address] [address] [place] [address] Al Ervin MD US ELASTOGRAPHY 06/16/2024 8:40 AM CDT Office Visit [facility] Hepatology [address] [facility] [address] [place] [address] Nely Cárdenas PA Hepatic steatosis (Primary Dx); Liver disease 06/16/[address] [facility] Hepatology [address] [facility] [address] [place] [address] Al Ervin MD Hepatic steatosis (Primary Dx); Liver disease; Abnormal liver enzymes; Metabolic dysfunction-associa hugo steatotic liver disease (MASLD); Hepatic fibrosis, advanced fibrosis 06/15/[address] [facility] Hepatology [address] [facility] [address] [place] [address] Nely Cárdenas PA Question 06/04/[address] [facility] Gastroenterology [address] [place] [address] Al Ervin MD 04/08/2024 [facility] - [address] [place] [address] Byron Sneed MD from Last 3 Months Immunizations Immunization Administration Dates Next Due (PFIZER)(12 YR UP) COVID-19 VACCINE - EMERGENCY USE AUTHORIZATION, MRNA, [id number](PF) 30 MCG/0.3 ML IM SUSP 04/25/2020,04/04/2020 (PNEUMOVAX 23)(50 YRS UP) PN EUMOCOCCAL POLYSACCHARIDE (PPV23) 0.5 ML, IM 12/01/2019 (PREVNAR 20)(6 WKS UP) PNEUM OCOCCAL CONJUGATE VACCINE 20-VALENT (PCV20), POLYSACCHARIDE [id number] CONJUGATE, ADJUVANT 0.5 ML (PF) IM 05/31/2022 [...] on file Legal Sex Male 2:38 AM RN [facility] Gender Identity Not on file Sexual Orientation [...] 08/17/2024 9:45 AM CDT Office Visit [facility] Heart and Vascular At [facility] [address] [place] [address] Atif Stover MD [address] [place] [address] 06/15/2025 9:15 AM CDT Office Visit [facility] Hepatology [address] [place] [address] Al Ervin MD [address] [facility] [place] [address] Health Maintenance Due Date Last [...] Cast DO - 10/24/2023 8:01 AM CDT [facility] Endoscopy Patient Name: Ayden Gray Procedure [...] Number of Addenda: [address] [place] [address] Anival Cast DO GI PROCEDURE ORDERABLES Fin al Result from Last 3 Months or Most Recently Relevant to Health Maintenance Insurance [facility] [id number] Advance Directives For more information, please contact: [phone] * Full Code (Latest Code Status on File) Date Activated Date Inactivated Comments 10/24/2023 7:10 AM 10/24/2023 11:14 AM * Full Code Date Activated Date Inactivated Comments 01/28/2018 7:43 AM 01/28/2018 11:30 AM
--- OUTSIDE RECORDS SUMMARY | 2024-06-30 14:19 | XMS_ITS | Encounter Summary ---
Author Organization [facility] Address [address] [place] [address] Care Team Providers Care Rig Superintendent Name Role Phone Chandu Urbina MD Primary Care Provider Unavailab le Reason for Referral * Behavioral Health - Outpatient (Routine) - Closed Specialty Diagnoses / Procedures Referred By Contac t Referred To Contact Diagnoses Anxiety and depression Uncomplicated alcohol dependence (CMS/HCC) Procedures [place] OFFICE/OUTPATIENT ESTABLISHED MOD MDM 30 MIN MO OFFICE/OUTPATIENT NEW MODERATE MDM 45 MINUTES Chandu Urbina MD Referral ID Status Reason Start Date Expiration Date Visits Re quested Visits Authorized [id number] Closed 06/28/2023 06/27/2024 1 1 Reason for Visit * Reason Comments Results Encounter Details Date Type Department Care Team (Late st Contact Info) Description 06/26/2023 Telephone [facility] Primary Care - [address] [place] [address] Chandu Urbina MD NO ADDRESS [...] on file Legal Sex Male 2:38 AM TOOTH INSPECTOR Gender Identity Not on file Sexual [...] - 06/26/2023 10:32 AM CDT Copied from [facility] #[id number]. Topic: CPA Information Request - Results >> June 26, 2023 10:30 AM Gabriella Victoria wrote: Caller is requesting information about results from an order. ? Caller Name: Mona- Callback Number: [phone] Test Name: Heather Dunn is requesting for [...] [facility] At [address] [place] [address] Atif Stover MD [address] [place] [address] [address] [place] [address] 06/15/2025 9:15 AM CDT Office Visit [facility] Hepatology [address] [place] [address] Al Ervin MD [address] [facility] [place] [address] Scheduled Referrals Name Type Priority Associated Diagnoses Order Schedule AMB REFERRAL TO [facility] Outpatient Referral Routine Anxiety and depression Uncomplicated alcohol dependence (CMS/HCC) Ordered: 06/28/2023 documented as of this encounter Visit Diagnoses Diagnosis Anxiety and depression- Primary Dysthymic disorder Uncomplicated alcohol dependence (CMS/HCC) Other and unspecified alcohol dependence, unspecified drinking behavior documented in this encounter Care Teams Rig Superintendent Relationship Specialty Start Date End Date Chandu Urbina MD PCP - General Family Practice 06/12/23 11/13/23 documented as of this encounter
--- OUTSIDE RECORDS SUMMARY | 2024-06-30 14:19 | XMS_ITS | Encounter Summary ---
Author Organization [facility] Address [address] [place] [address] Care Team Providers Care Glass Robot Operator Name Role Phone Chandu Urbina MD Primary Care Provider Unavailab le Encounter Details Date Type Department Care Team (Late st Contact Info) Description 11/08/2006 Outpatient Historical [facility] Primary Care - [address] [place] [address] Liam Rubin MD NO ADDRESS ON FILE Social History Tobacco Use Types Packs/Day Years Used Date Smoking Tobacco: Never Assessed Sex and Gender Information Value Date Recorded Sex Assigned at Not on file Legal Sex Male 2:38 AM STRAIN TECHNICIAN Gender Identity Not on file Sexual Orientation Not on file documented as of this encounter Plan of Treatment Upcoming Encounters Date Type Department Care Team (Late st Contact Info) Description 08/17/2024 9:45 AM CDT Office Visit [facility] At [facility] [address] [facility] [address] [place] [address] Atif Stover MD [address] [facility] [address] [place] [address] 06/15/2025 9:15 AM CDT Office Visit [facility] Hepatology [address] [facility] [place] [address] Al Ervin MD [address] [facility] [address] [facility] [place] [address] documented as of this encounter Visit Diagnoses Not on filedocumented in this encounter Additional Health Concerns Infection Onset Date Last Indicated Resolved Time R/O COVID-19 12/24/2019 12/24/2019 12/26/2019 6:02 AM STRAIN TECHNICIAN COVID-19 12/24/2019 12/24/2019 01/23/2020 1:16 AM STRAIN TECHNICIAN documented as of this encounter Care Teams Glass Robot Operator Relationship Specialty Start Date End Date Chandu Urbina MD PCP - General Family Practice 06/12/23 11/13/23 documented as of this encounter
--- OUTSIDE RECORDS SUMMARY | 2024-06-30 14:19 | XMS_ITS | Encounter Summary ---
Author Organization [facility] Address [address] [place] [address] Care Team Providers Care Senior Sql Server Developer Name Role Phone Chandu Urbina MD Primary Care Provider Unavailab le Encounter Details Date Type Department Care Team (Late st Contact Info) Description 11/09/2005 Outpatient Historical [facility] Primary Care - [address] [place] [address] Liam Rubin MD NO ADDRESS ON FILE Social History Tobacco Use Types Packs/Day Years Used Date Smoking Tobacco: Never Assessed Sex and Gender Information Value Date Recorded Sex Assigned at Not on file Legal Sex Male 2:38 AM TELEMETRY TECH Gender Identity Not on file Sexual Orientation Not on file documented as of this encounter Plan of Treatment Upcoming Encounters Date Type Department Care Team (Late st Contact Info) Description 08/17/2024 9:45 AM CDT Office Visit [facility] Heart and Vascular At [facility] [address] [facility] [address] [place] [address] Atif Stover MD [address] [facility] [address] [place] [address] 06/15/2025 9:15 AM CDT Office Visit [facility] Hepatology [address] [facility] [place] [address] Al Ervin MD [address] [facility] [address] [facility] [place] [address] documented as of this encounter Visit Diagnoses Not on filedocumented in this encounter Additional Health Concerns Infection Onset Date Last Indicated Resolved Time R/O COVID-19 12/24/2019 12/24/2019 12/26/2019 6:02 AM TELEMETRY TECH COVID-19 12/24/2019 12/24/2019 01/23/2020 1:16 AM TELEMETRY TECH documented as of this encounter Care Teams Senior Sql Server Developer Relationship Specialty Start Date End Date Chandu Urbina MD PCP - General Family Practice 06/12/23 11/13/23 documented as of this encounter
--- OUTSIDE RECORDS SUMMARY | 2024-06-30 14:19 | XMS_ITS | Encounter Summary ---
Author Organization [facility] Address [address] [place] [address] Care Team Providers Care Electrician Manager Name Role Phone Chandu Urbina MD Primary Care Provider Unavailab le Encounter Details Date Type Department Care Team (Late st Contact Info) Description 05/08/2006 Outpatient Historical [facility] Primary Care - [address] [place] [address] Liam Rubin MD NO ADDRESS ON FILE Social History Tobacco Use Types Packs/Day Years Used Date Smoking Tobacco: Never Assessed Sex and Gender Information Value Date Recorded Sex Assigned at Not on file Legal Sex Male 2:38 AM REAL ESTATE ANALYST Gender Identity Not on file Sexual Orientation Not on file documented as of this encounter Plan of Treatment Upcoming Encounters Date Type Department Care Team (Late st Contact Info) Description 08/17/2024 9:45 AM CDT Office Visit [facility] Heart and Vascular At [facility] [address] [facility] [address] [place] [address] Atif Stover MD [address] [facility] [address] [place] [address] 06/15/2025 9:15 AM CDT Office Visit [facility] Hepatology [address] [place] [address] Al Ervin MD [address] [facility] [place] [address] documented as of this encounter Visit Diagnoses Not on filedocumented in this encounter Additional Health Concerns Infection Onset Date Last Indicated Resolved Time R/O COVID-19 12/24/2019 12/24/2019 12/26/2019 6:02 AM REAL ESTATE ANALYST COVID-19 12/24/2019 12/24/2019 01/23/2020 1:16 AM REAL ESTATE ANALYST documented as of this encounter Care Teams Electrician Manager Relationship Specialty Start Date End Date Chandu Urbina MD PCP - General Family Practice 06/12/23 11/13/23 documented as of this encounter
--- OUTSIDE RECORDS SUMMARY | 2024-06-30 14:19 | XMS_ITS | Encounter Summary ---
Author Organization [facility] Address [address] [place] [address] Care Team Providers Care Dice Spotter Name Role Phone Chandu Urbina MD Primary [...] on file Legal Sex Male 2:38 AM ALUMINUM SHEET CUTTER Gender Identity Not on file Sexual Orientation Not on file documented as of this encounter Plan of Treatment Upcoming Encounters Date Type Department Care Team (Late st Contact Info) Description 08/17/2024 9:45 AM CDT Office Visit [facility] Heart and Vascular At [facility] [address] [facility] [address] [place] [address] Atif Stover MD [address] [facility] [address] [place] [address] 06/15/2025 9:15 AM CDT Office Visit [facility] Hepatology [address] [place] [address] Al Ervin MD [address] [facility] [place]atology [place] [address] documented as of this encounter Visit Diagnoses Not on filedocumented in this encounter Care Teams Dice Spotter Relationship Specialty Start Date End Date Chandu Urbina MD PCP - General Family Practice 06/12/23 11/13/23 documented as of this encounter
--- OUTSIDE RECORDS SUMMARY | 2024-06-30 14:19 | XMS_ITS | Encounter Summary ---
Author Organization [facility] Address [address] [place] [address] Care Team Providers Care Tax Investigator Name Role Phone Chandu Urbina MD Primary Care Provider Unavailab le Encounter Details Date Type Department Care Team (Latest Contact Info) Description 11/09/2005 Outpatient Historical [facility] Primary Care - [facility] [address] [place] [address] Liam Rubin MD NO ADDRESS ON FILE Other and Unspecified Hyperlipidemia (Primary Dx) Social History Tobacco Use Types Packs/Day Years Used Date Smoking Tobacco: Never Assessed Sex and Gender Information Value Date Recorded Sex Assigned at Not on file 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 Gender Identity Not on file Sexual Orientation Not on file documented as of this encounter Plan of Treatment Upcoming Encounters Date Type Department Care Team (Late st Contact Info) Description 08/17/2024 9:45 AM CDT Office Visit [facility] Heart and Vascular At [facility] [address] [facility] [address] [place] [address] Atif Stover MD [address] [facility] [address] [place] [address] 06/15/2025 9:15 AM CDT Office Visit [facility] Hepatology [address] [place] [address] Al Ervin MD [address] [facility] [address] [facility] [place] [address] documented as of this encounter Procedures Procedure Name Priority Date/Time Associated Diagnosis Comments ALT Routine 11/09/2005 3:28 PM CDT LIPID PANEL Routine 11/09/2005 3:28 PM CDT documented in this encounter Results * ALT (11/09/2005 3:28 PM CDT) ALT 37 0 - 41 U/L INTERFACE SYSTEM 11/09/2005 3:28 PM CDT us Liam Rubin MD CHEMISTRY ORDERABLES Final Re sult Performing Organization Address [facility] Phone Number INTERFACE SYSTEM Refer to clinic/hospital [...] classifications for lipids are available on the [facility] Intranet at: [email or web address] Select: Lab Policies and Procedures Select: Reference Ranges - Lipids 11/09/2005 3:28 PM CDT us Liam Rubin MD CHEMISTRY ORDERABLES Final Re sult Performing Organization Address City/[facility] Co de Phone Number INTERFACE SYSTEM Refer to clinic/hospital department documented in this encounter Visit Diagnoses Diagnosis Other and unspecified hyperlipidemia- Primary documented in this encounter Additional Health Concerns Infection Onset Date Last Indicated Resolved Time R/O COVID-19 12/24/2019 12/24/2019 12/26/2019 6:02 AM AERONAUTICAL ENGINEERING TEACHER COVID-19 12/24/2019 12/24/2019 01/23/2020 1:16 AM AERONAUTICAL ENGINEERING TEACHER documented as of this encounter Care Teams Tax Investigator Relationship Specialty Start Date End Date Chandu Urbina MD PCP - General Family Practice 06/12/23 11/13/23 documented as of this encounter
--- OUTSIDE RECORDS SUMMARY | 2024-06-30 14:19 | XMS_ITS | Encounter Summary ---
Author Organization [facility] Address [address] [place] [address] Care Team Providers Care Assisted Living Housekeeper Name Role Phone Chandu Urbina MD Primary [...] on file Legal Sex Male 2:38 AM COUTURE ALTERATIONS DRESSMAKER Gender Identity Not on file Sexual Orientation Not on file documented as of this encounter Plan of Treatment Upcoming Encounters Date Type Department Care Team (Late st Contact Info) Description 08/17/2024 9:45 AM CDT Office Visit [facility] Heart and Vascular At [facility] [address] [facility] [facility] [address] [place] [address] Atif Stover MD [address] [facility] [facility] [address] [place] [address] 06/15/2025 9:15 AM CDT Office Visit [facility] Hepatology [address] [place] [address] Al Ervin MD [address] [facility] [place] [address] documented as of this encounter Visit Diagnoses Not on filedocumented in this encounter Care Teams Assisted Living Housekeeper Relationship Specialty Start Date End Date Chandu Urbina MD PCP - General Family Practice 06/12/23 11/13/23 documented as of this encounter
--- OUTSIDE RECORDS SUMMARY | 2024-06-30 14:19 | XMS_ITS | Encounter Summary ---
Author Organization [facility] Address 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 Gender Identity Not on file Sexual Orientation Not on file documented as of this encounter Progress Notes * Liam Rubin MD - 07/04/2007 2:50 PM CDT [facility] LIAM RUBIN MD [address] [place] [address] May 09, 2006 MIRANDA MORALES [address] [place] [address] Dear Miranda: Please find enclosed your recent [...] 08/17/2024 9:45 AM CDT Office Visit [facility] Heart and Vascular At [facility] [address] [facility] [address] [place] [address] Atif Stover MD [address] [facility] [address] [place] [address] 06/15/2025 9:15 AM CDT Office Visit [facility] Hepatology [address] [place] [address] Al Ervin MD [address] [facility] [place] [address] documented as of this encounter Visit Diagnoses Not on filedocumented in this encounter Additional Health Concerns Infection Onset Date Last Indicated Resolved Time R/O COVID-19 12/24/2019 12/24/2019 12/26/2019 6:02 AM SOLAR PHOTOVOLTAIC DESIGNER COVID-19 12/24/2019 12/24/2019 01/23/2020 1:16 AM SOLAR PHOTOVOLTAIC DESIGNER documented as of this encounter Care Teams Behavioral Health Specialist Relationship Specialty Start Date End Date Chandu Urbina MD PCP - General Family Practice 06/12/23 11/13/23 documented as of this encounter
--- OUTSIDE RECORDS SUMMARY | 2024-06-30 14:19 | XMS_ITS | Encounter Summary ---
Author Organization [facility] Address [address] [place] [address] Care Team Providers Care Wood And Wood Products Factory Worker Name Role Phone Chandu Urbina MD Primary Care Provider Unavailab le Encounter Details Date Type Department Care Team (Latest Contact Info) Description 05/09/2007 Outpatient Historical [facility] Primary Care - [facility] [address] [facility] [address] [place] [address] Liam Rubin MD NO ADDRESS ON FILE Special Screening for Malignant Neoplasm of Prostate Social History Tobacco Use Types Packs/Day Years Used Date Smoking Tobacco: Never Assessed Sex and Gender Information Value Date Recorded Sex Assigned at Not on file 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 Gender Identity Not on file Sexual Orientation Not on file documented as of this encounter Plan of Treatment Upcoming Encounters Date Type Department Care Team (Late st Contact Info) Description 08/17/2024 9:45 AM CDT Office Visit [facility] Heart and Vascular At [facility] [address] [facility] [address] [place] [address] Atif Stover MD [address] [facility] [address] [place] [address] 06/15/2025 9:15 AM CDT Office Visit [facility] Hepatology [address] [place] [address] Al Ervin MD [address] [facility] [address] [facility] [place] [address] documented as of this encounter Procedures Procedure Name Priority Date/Time Associated Diagnosis Comments ALT Routine 05/09/2007 10:26 AM CDT PSA Routine 05/09/2007 10:26 AM CDT CREATININE Routine 05/09/2007 10:26 AM CDT LIPID PANEL Routine 05/09/2007 10:26 AM CDT documented in this encounter Results * CREATININE (05/09/2007 10:26 AM CDT) CREATININE 1.03 0.67 - 1.17 mg/dL [facility] GFR, >60 >=60 mL/min/1.7 sq meter [facility] GFR >60 >=60 mL/min/1.7 sq meter [facility] Comment: Estimated GFR rate interpretative information for both Americans and non- Americans is available on the [facility] Intranet at: [email or web address] Select: Lab Policies and Procedures Select: Reference Ranges - GFR Blood specimen (specimen) 05/09/2007 10:26 AM CDT 05/09/2007 6:39 PM CDT Liam Rubin MD CHEMISTRY ORDERABLES Edited [facility] [address] [place] [address] * (ABNORMAL) ALT (05/09/2007 10:26 AM CDT) ALT 55(H) 0 - 41 U/L [facility] Blood specimen (specimen) 05/09/2007 10:26 AM CDT 05/09/2007 6:39 PM CDT Liam Rubin MD CHEMISTRY ORDERABLES Final Re sult Performing Organization Address [facility] Co de Phone Number [facility] [address] [place] [address] * (ABNORMAL) LIPID PANEL (05/09/2007 10:26 AM CDT) HDL 64(H) 40 - 59 mg/dL [facility] CHOLESTEROL 198 100 - 199 mg/dL [facility] CHOL/HDL RATIO 3.1 2.0 - 5.0 [facility] TRIGLYCERIDE 118 10 - 149 mg/dL [facility] LDL CALCULATED 110(H) <=99 mg/dL [facility] LIPID PANEL COMMENT See Below [facility] Comment: The adult ATP and pediatric NCEP classifications for lipids are available on the [facility] Intranet at: [email or web address] Select: Lab Policies and Procedures,Current Select: Lipid Panel Interpretation Blood specimen (specimen) 05/09/2007 10:26 AM CDT 05/09/2007 6:39 PM CDT us Liam Rubin MD CHEMISTRY ORDERABLES Edited Performing Organization Address [facility] Co de Phone Number [facility] [address] [place] [address] * PSA (05/09/2007 10:26 AM CDT) PSA 0.5 0.0 - 4.0 ng/mL [facility] Comment:Performed on [employer] E170 System Blood specimen (specimen) 05/09/2007 10:26 AM CDT 05/09/2007 6:39 PM CDT Liam Rubin MD CHEMISTRY ORDERABLES Edited [facility] [address] [place], [place] [address] documented in this encounter Visit Diagnoses Diagnosis Special screening for malignant neoplasm of prostate documented in this encounter Additional Health Concerns Infection Onset Date Last Indicated Resolved Time R/O COVID-19 12/24/2019 12/24/2019 12/26/2019 6:02 AM AVIATION SAFETY INSPECTOR COVID-19 12/24/2019 12/24/2019 01/23/2020 1:16 AM AVIATION SAFETY INSPECTOR documented as of this encounter Care Teams Wood And Wood Products Factory Worker Relationship Specialty Start Date End Date Chandu Urbina MD PCP - General Family Practice 06/12/23 11/13/23 documented as of this encounter
--- OUTSIDE RECORDS SUMMARY | 2024-06-30 14:19 | XMS_ITS | Encounter Summary ---
Author Organization [facility] Address 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 Gender Identity Not on file Sexual Orientation Not on file documented as of this encounter Plan of Treatment Upcoming Encounters Date Type Department Care Team (Late st Contact Info) Description 08/17/2024 9:45 AM CDT [facility] Visit [facility] At [facility] [address] [place] [address] Atif Stover MD [address] [address] [place] [address] 06/15/2025 9:15 AM CDT Office Visit [facility] [address] [facility] [place] [address] Al Ervin MD [address] [facility] [address] [facility] [place] [address] documented as of this encounter Visit Diagnoses Not on filedocumented in this encounter Additional Health Concerns Infection Onset Date Last Indicated Resolved Time R/O COVID-19 12/24/2019 12/24/2019 12/26/2019 6:02 AM TIMBER BUCKER COVID-19 12/24/2019 12/24/2019 01/23/2020 1:16 AM TIMBER BUCKER documented as of this encounter Care Teams Motor Room Controller Relationship Specialty Start Date End Date Chandu Urbina MD PCP - General Family Practice 06/12/23 11/13/23 documented as of this encounter
--- OUTSIDE RECORDS SUMMARY | 2024-06-30 14:19 | XMS_ITS | Encounter Summary ---
Author Organization [facility] Address [address] [place] [address] Care Team Providers Care Forest Resource Specialist Name Role Phone Chandu Urbina MD Primary Care Provider Unavailab le Encounter Details Date Type Department Care Team (Late st Contact Info) Description 11/08/2006 Outpatient Historical [facility]3] Primary Care - [address] [place] [address] Liam Rubin MD NO ADDRESS ON FILE Social History Tobacco Use Types Packs/Day Years Used Date Smoking Tobacco: Never Assessed Sex and Gender Information Value Date Recorded Sex Assigned at Not on file Legal Sex Male 2:38 AM LVN Gender Identity Not on file Sexual Orientation Not on file documented as of this encounter Plan of Treatment Upcoming Encounters Date Type Department Care Team (Late st Contact Info) Description 08/17/2024 9:45 AM CDT Office Visit [facility]3] Heart and Vascular At [facility] [address] [facility] [address] [place] [address] Atif Stover MD [address] [facility] [address] [place] [address] 06/15/2025 9:15 AM CDT Office Visit [facility]3] Hepatology [address] [place] [address] Al Ervin MD [address] [facility]3] [place] [address] documented as of this encounter Visit Diagnoses Not on filedocumented in this encounter Additional Health Concerns Infection Onset Date Last Indicated Resolved Time R/O COVID-19 12/24/2019 12/24/2019 12/26/2019 6:02 AM LVN COVID-19 12/24/2019 12/24/2019 01/23/2020 1:16 AM LVN documented as of this encounter Care Teams Forest Resource Specialist Relationship Specialty Start Date End Date Chandu Urbina MD PCP - General Family Practice 06/12/23 11/13/23 documented as of this encounter
--- OUTSIDE RECORDS SUMMARY | 2024-06-30 14:19 | XMS_ITS | Encounter Summary ---
Author Organization [facility] Address [address] [place] [address] Care Team Providers Care Radio Station Manager Name Role Phone Chandu Urbina MD Primary Care Provider Unavailab le Encounter Details Date Type Department Care Team (Latest Contact Info) Description 05/08/2006 Outpatient Historical [facility] Primary Care - [facility] [address] [place] [address] Liam Rubin MD NO ADDRESS ON FILE Special Screening for Malignant Neoplasm of Prostate (Primary Dx) Social History Tobacco Use Types Packs/Day Years Used Date Smoking Tobacco: Never Assessed Sex and Gender Information Value Date Recorded Sex Assigned at Not on file 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 Gender Identity Not on file Sexual Orientation Not on file documented as of this encounter Plan of Treatment Upcoming Encounters Date Type Department Care Team (Late st Contact Info) Description 08/17/2024 9:45 AM CDT Office Visit [facility] Heart and Vascular At [facility] [address] [facility] [address] [place] [address] Atif Stover MD [address] [facility] [place] [address] 06/15/2025 9:15 AM CDT Office Visit [facility] Hepatology [address] [place] [address] Al Ervin MD [address] [facility] [address] [facility] [place] [address] documented as of this encounter Procedures Procedure [...] MD CHEMISTRY ORDERABLES Edited Performing Organization Address City/[facility]/ZIP Co de Phone Number INTERFACE SYSTEM [...] classifications for lipids are available on the [facility] Intranet at: [email or web address] Select: Lab Policies and Procedures Select: Reference Ranges - Lipids 05/08/2006 3:01 PM CDT us Liam Rubin MD CHEMISTRY ORDERABLES Edited INTERFACE SYSTEM Refer to clinic/hospital department * PSA (05/08/2006 3:01 PM CDT) PSA 0.5 0.0 - 4.0 ng/mL INTERFACE SYSTEM Comment:Performed on [employer] E170 System 05/08/2006 3:01 PM CDT Liam Rubin MD CHEMISTRY ORDERABLES Edited INTERFACE SYSTEM Refer to clinic/hospital department documented in this encounter Visit Diagnoses Diagnosis Special screening for malignant neoplasm of prostate- Primary documented in this encounter Additional Health Concerns Infection Onset Date Last Indicated Resolved Time R/O COVID-19 12/24/2019 12/24/2019 12/26/2019 6:02 AM 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 COVID-19 12/24/2019 12/24/2019 01/23/2020 1:16 AM 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 documented as of this encounter Care Teams Radio Station Manager Relationship Specialty Start Date End Date Chandu Urbina MD PCP - General Family Practice 06/12/23 11/13/23 documented as of this encounter
--- OUTSIDE RECORDS SUMMARY | 2024-06-30 14:19 | XMS_ITS | Encounter Summary ---
Author Organization [facility] Address [address] [place] [address] Care Team Providers Care Rating Specialist Name Role Phone Chandu Urbina MD Primary Care Provider Unavailab le Encounter Details Date Type Department Care Team (Late st Contact Info) Description 05/09/2007 Outpatient Historical [facility] Primary Care - [address] [place] [address] Liam Rubin MD NO ADDRESS ON FILE Social History Tobacco Use Types Packs/Day Years Used Date Smoking Tobacco: Never Assessed Sex and Gender Information Value Date Recorded Sex Assigned at Not on file Legal Sex Male 2:38 AM REGIONAL LOSS PREVENTION MANAGER Gender Identity Not on file Sexual Orientation Not on file documented as of this encounter Plan of Treatment Upcoming Encounters Date Type Department Care Team (Late st Contact Info) Description 08/17/2024 9:45 AM CDT Office Visit [facility] Heart and Vascular At [facility] [address] [facility] [address] [place] [address] Atif Stover MD [address] [facility] [address] [place] [address] 06/15/2025 9:15 AM CDT Office Visit [facility] Hepatology [address] [facility] [place] [address] Al Ervin MD [address] [facility] [address] [facility] [place] [address] documented as of this encounter Visit Diagnoses Not on filedocumented in this encounter Additional Health Concerns Infection Onset Date Last Indicated Resolved Time R/O COVID-19 12/24/2019 12/24/2019 12/26/2019 6:02 AM REGIONAL LOSS PREVENTION MANAGER COVID-19 12/24/2019 12/24/2019 01/23/2020 1:16 AM REGIONAL LOSS PREVENTION MANAGER documented as of this encounter Care Teams Rating Specialist Relationship Specialty Start Date End Date Chandu Urbina MD PCP - General Family Practice 06/12/23 11/13/23 documented as of this encounter
--- OUTSIDE RECORDS SUMMARY | 2024-06-30 14:19 | XMS_ITS | Encounter Summary ---
Author Organization [facility] Address [address] [place] [address] Care Team Providers Care Rail Doweling Machine Operator Name Role Phone Chandu Urbina MD Primary Care Provider Unavailab le Encounter Details Date Type Department Care Team (Late st Contact Info) Description 11/08/2006 Orders Only [facility] Primary Care - [address] [place] [address] Liam Rubin MD NO ADDRESS ON FILE Social History Tobacco Use Types Packs/Day Years Used Date Smoking Tobacco: Never Assessed Sex and Gender Information Value Date Recorded Sex Assigned at Not on file Legal Sex Male 2:38 AM BULLET SWAGING MACHINE OPERATOR Gender Identity Not on file [...] Will check laboratory. LAB ORDERS: Order number: [id number] Test Ordered: LIPID PANEL 1078 Order number: [id number] Test Ordered: ALT 1294 305.1-TOBACCO ABUSE ASSESSMENT: [...] warrants further evaluation. LAB ORDERS: Order number: [id number] Test Ordered: CT HEAD WITH & W/O CONTRAST Order number: [id number] Test Ordered: XRAY C SPINES, ROUTINE (5 VIEWS) W/OBL Order number: [id number] Test Ordered: CREATININE 1790 RETURN VISIT : pending results. Electronically Signed by: Liam Rubin MD on Sunday, November 12, 2006 documented in this encounter Plan of Treatment Upcoming Encounters Date Type Department Care Team (Late st Contact Info) Description 08/17/2024 9:45 AM CDT Office Visit [facility] Heart and Vascular At [place] [address] [facility] [address] [place] [address] Atif Stover MD [address] [place] [address] 06/15/2025 9:15 AM CDT Office Visit [facility] Hepatology [address] [place] [address] Al Ervin MD [address] [facility] [place] [address] documented as of this encounter Visit Diagnoses Not on filedocumented in this encounter Additional Health Concerns Infection Onset Date Last Indicated Resolved Time R/O COVID-19 12/24/2019 12/24/2019 12/26/2019 6:02 AM BULLET SWAGING MACHINE OPERATOR COVID-19 12/24/2019 12/24/2019 01/23/2020 1:16 AM BULLET SWAGING MACHINE OPERATOR documented as of this encounter Care Teams Rail Doweling Machine Operator Relationship Specialty Start Date End Date Chandu Urbina MD PCP - General Family Practice 06/12/23 11/13/23 documented as of this encounter
--- OUTSIDE RECORDS SUMMARY | 2024-06-30 14:19 | XMS_ITS | Encounter Summary ---
Author Organization [facility] Address [address] [place] [address] Care Team Providers Care Fringe Weaver Name Role Phone Chandu Urbina MD Primary Care Provider Unavailab le Encounter Details Date Type Department Care Team (Late st Contact Info) Description 09/06/2005 Outpatient Historical [facility] Primary Care - [address] [place] [address] Liam Rubin MD NO ADDRESS ON FILE Social History Tobacco Use Types Packs/Day Years Used Date Smoking Tobacco: Never Assessed Sex and Gender Information Value Date Recorded Sex Assigned at Not on file Legal Sex Male 2:38 AM ASSISTED LIVING HOME DIRECTOR Gender Identity Not on file Sexual [...] Description 08/17/2024 9:45 AM CDT Office Visit [facility] Heart and Vascular At [address] [place] [address] Atif Stover MD [address] [place] [address] [address] [place] [address] 06/15/2025 9:15 AM CDT Office Visit [facility] Hepatology [address] [place] [address] Al Ervin MD [address] [facility] [place] [address] documented as of this encounter Visit Diagnoses Not on filedocumented in this encounter Additional Health Concerns Infection Onset Date Last Indicated Resolved Time R/O COVID-19 12/24/2019 12/24/2019 12/26/2019 6:02 AM ASSISTED LIVING HOME DIRECTOR COVID-19 12/24/2019 12/24/2019 01/23/2020 1:16 AM ASSISTED LIVING HOME DIRECTOR documented as of this encounter Care Teams Fringe Weaver Relationship Specialty Start Date End Date Chandu Urbina MD PCP - General Family Practice 06/12/23 11/13/23 documented as of this encounter
--- OUTSIDE RECORDS SUMMARY | 2024-06-30 14:19 | XMS_ITS | Encounter Summary ---
Author Organization [facility] Address [address] [place] [address] Care Team Providers Care Budget Coordinator Name Role Phone Chandu Urbina MD Primary Care Provider Unavailab le Encounter Details Date Type Department Care Team (Late st Contact Info) Description 05/09/2005 Outpatient Historical [facility] Primary Care - [address] [place] [address] Liam Rubin MD NO ADDRESS ON FILE Social History Tobacco Use Types Packs/Day Years Used Date Smoking Tobacco: Never Assessed Sex and Gender Information Value Date Recorded Sex Assigned at Not on file Legal Sex Male 2:38 AM PETROPHYSICAL ENGINEER Gender Identity Not on file Sexual Orientation Not on file documented as of this encounter Plan of Treatment Upcoming Encounters Date Type Department Care Team (Late st Contact Info) Description 08/17/2024 9:45 AM CDT Office Visit [facility] Heart and Vascular At [facility] [address] [facility] [address] [place] [address] Atif Stover MD [address] [facility] [address] [place] [address] 06/15/2025 9:15 AM CDT Office Visit [facility] Hepatology [address] [facility] [place] [address] Al Ervin MD [address] [facility] [address] [facility] [place] [address] documented as of this encounter Visit Diagnoses Not on filedocumented in this encounter Additional Health Concerns Infection Onset Date Last Indicated Resolved Time R/O COVID-19 12/24/2019 12/24/2019 12/26/2019 6:02 AM PETROPHYSICAL ENGINEER COVID-19 12/24/2019 12/24/2019 01/23/2020 1:16 AM PETROPHYSICAL ENGINEER documented as of this encounter Care Teams Budget Coordinator Relationship Specialty Start Date End Date Chandu Urbina MD PCP - General Family Practice 06/12/23 11/13/23 documented as of this encounter
--- OUTSIDE RECORDS SUMMARY | 2024-06-30 14:19 | XMS_ITS | Encounter Summary ---
Author Organization [facility] Address [address] [place] [address] Care Team Providers Care Ornamenter Name Role Phone Chandu Urbina MD Primary Care Provider Unavailab le Encounter Details Date Type Department Care Team (Latest Contact Info) Description 11/08/2006 Outpatient Historical [facility] Primary Care - [facility] [address] [place] [address] Liam Rubin MD NO ADDRESS ON FILE Other and Unspecified Hyperlipidemia (Primary Dx) Social History Tobacco Use Types Packs/Day Years Used Date Smoking Tobacco: Never Assessed Sex and Gender Information Value Date Recorded Sex Assigned at Not on file Legal Sex Male 2:38 AM SLUBBER HAND Gender Identity Not on file Sexual Orientation Not on file documented as of this encounter Plan of Treatment Upcoming Encounters Date Type Department Care Team (Late st Contact Info) Description 08/17/2024 9:45 AM CDT Office Visit [facility] Heart and Vascular At [facility] [address] [facility] [address] [place] [address] Atif Stover MD [address] [facility] [address] [place] [address] 06/15/2025 9:15 AM CDT Office Visit [facility] Hepatology [address] [place] [address] Al Ervin MD [address] [facility] [address] [facility] [place] [address] documented as of this encounter Procedures Procedure [...] MD CHEMISTRY ORDERABLES Edited Performing Organization Address City/[facility] Co de Phone Number INTERFACE SYSTEM [...] classifications for lipids are available on the [facility] Intranet at: [email or web address] Select: Lab Policies and Procedures,Current Select: Lipid Panel Interpretation 11/08/2006 10:3 9 AM CDT us Liam Rubin MD CHEMISTRY ORDERABLES Edited INTERFACE SYSTEM Refer to clinic/hospital department documented in this encounter Visit Diagnoses Diagnosis Other and unspecified hyperlipidemia- Primary documented in this encounter Additional Health Concerns Infection Onset Date Last Indicated Resolved Time R/O COVID-19 12/24/2019 12/24/2019 12/26/2019 6:02 AM SLUBBER HAND COVID-19 12/24/2019 12/24/2019 01/23/2020 1:16 AM SLUBBER HAND documented as of this encounter Care Teams Ornamenter Relationship Specialty Start Date End Date Chandu Urbina MD PCP - General Family Practice 06/12/23 11/13/23 documented as of this encounter
--- OUTSIDE RECORDS SUMMARY | 2024-06-30 14:19 | XMS_ITS | Encounter Summary ---
Author Organization [facility] Address 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 Gender Identity Not on file Sexual Orientation Not on file documented as of this encounter Plan of Treatment Upcoming Encounters Date Type Department Care Team (Late st Contact Info) Description 08/17/2024 9:45 AM CDT Office Visit [facility] Heart and Vascular At [facility] [address] [facility] [address] [place] [address] Atif Stover MD [address] [facility] [address] [place] [address] 06/15/2025 9:15 AM CDT Office Visit [facility] Hepatology [address] [facility] [place] [address] Al Ervin MD [address] [facility] [address] [facility] [place] [address] documented as of this encounter Visit Diagnoses Not on filedocumented in this encounter Additional Health Concerns Infection Onset Date Last Indicated Resolved Time R/O COVID-19 12/24/2019 12/24/2019 12/26/2019 6:02 AM AGRICULTURAL SCIENCE PROFESSOR COVID-19 12/24/2019 12/24/2019 01/23/2020 1:16 AM AGRICULTURAL SCIENCE PROFESSOR documented as of this encounter Care Teams Svp Programmatic Tv Relationship Specialty Start Date End Date Chandu Urbina MD PCP - General Family Practice 06/12/23 11/13/23 documented as of this encounter
--- OUTSIDE RECORDS SUMMARY | 2024-06-30 14:19 | XMS_ITS | Encounter Summary ---
Author Organization [facility] Address 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 Gender Identity Not on file Sexual Orientation Not on file documented as of this encounter Plan of Treatment Upcoming Encounters Date Type Department Care Team (Late st Contact Info) Description 08/17/2024 9:45 AM CDT Office Visit [facility] Heart and Vascular At [facility] [address] [facility] [address] [place] [address] Atif Stover MD [address] [facility] [address] [place] [address] 06/15/2025 9:15 AM CDT Office Visit [facility] Hepatology [address] [facility] [place] [address] Al Ervin MD [address] [facility] [address] [facility] [place] [address] documented as of this encounter Visit Diagnoses Not on filedocumented in this encounter Additional Health Concerns Infection Onset Date Last Indicated Resolved Time R/O COVID-19 12/24/2019 12/24/2019 12/26/2019 6:02 AM PRIVATE DUTY NURSE COVID-19 12/24/2019 12/24/2019 01/23/2020 1:16 AM PRIVATE DUTY NURSE documented as of this encounter Care Teams Sheet Rock Taper Helper Relationship Specialty Start Date End Date Chandu Urbina MD PCP - General Family Practice 06/12/23 11/13/23 documented as of this encounter
--- OUTSIDE RECORDS SUMMARY | 2024-06-30 14:19 | XMS_ITS | Encounter Summary ---
Author Organization [facility] Address [address] [place] [address] Care Team Providers Care Parts Driver Name Role Phone Chandu Urbina MD Primary Care Provider Unavailab le Encounter Details Date Type Department Care Team (Late st Contact Info) Description 11/09/2005 Outpatient Historical [facility] Primary Care - [address] [place] [address] Liam Rubin MD NO ADDRESS ON FILE Social History Tobacco Use Types Packs/Day Years Used Date Smoking Tobacco: Never Assessed Sex and Gender Information Value Date Recorded Sex Assigned at Not on file Legal Sex Male 2:38 AM BORDER PATROL AGENT Gender Identity Not on file Sexual Orientation Not on file documented as of this encounter Plan of Treatment Upcoming Encounters Date Type Department Care Team (Late st Contact Info) Description 08/17/2024 9:45 AM CDT Office Visit [facility] At [facility] [address] [place] [address] Atif Stover MD [address] [place] [address] 06/15/2025 9:15 AM CDT Office Visit [facility] Hepatology [address] [place] [address] Al Ervin MD [address] [facility] [place] [address] documented as of this encounter Visit Diagnoses Not on filedocumented in this encounter Additional Health Concerns Infection Onset Date Last Indicated Resolved Time R/O COVID-19 12/24/2019 12/24/2019 12/26/2019 6:02 AM BORDER PATROL AGENT COVID-19 12/24/2019 12/24/2019 01/23/2020 1:16 AM BORDER PATROL AGENT documented as of this encounter Care Teams Parts Driver Relationship Specialty Start Date End Date Chandu Urbina MD PCP - General Family Practice 06/12/23 11/13/23 documented as of this encounter
--- OUTSIDE RECORDS SUMMARY | 2024-06-30 14:19 | XMS_ITS | Encounter Summary ---
Author Organization [facility] Address [address] [place] [address] Care Team Providers Care Director Of Sustainable Design Name Role Phone Chandu Urbina MD Primary Care Provider Unavailab le Encounter Details Date Type Department Care Team (Late st Contact Info) Description 05/09/2007 Outpatient Historical [facility] Primary Care - [address] [place] [address] Liam Rubin MD NO ADDRESS ON FILE Social History Tobacco Use Types Packs/Day Years Used Date Smoking Tobacco: Never Assessed Sex and Gender Information Value Date Recorded Sex Assigned at Not on file Legal Sex Male 2:38 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 FORENSICS TECHNICIAN Gender Identity Not on file Sexual Orientation Not on file documented as of this encounter Plan of Treatment Upcoming Encounters Date Type Department Care Team (Late st Contact Info) Description 08/17/2024 9:45 AM CDT Office Visit [facility] Heart and Vascular At [facility] [address] [place] [address] Atif Stover MD [address] [place] [address] 06/15/2025 9:15 AM CDT Office Visit [facility] Hepatology [address] [place] [address] Al Ervin MD [address] [facility] [place] [address] documented as of this encounter Visit Diagnoses Not on filedocumented in this encounter Additional Health Concerns Infection Onset Date Last Indicated Resolved Time R/O COVID-19 12/24/2019 12/24/2019 12/26/2019 6:02 AM COMPUTER FORENSICS TECHNICIAN COVID-19 12/24/2019 12/24/2019 01/23/2020 1:16 AM COMPUTER FORENSICS TECHNICIAN documented as of this encounter Care Teams Director Of Sustainable Design Relationship Specialty Start Date End Date Chandu Urbina MD PCP - General Family Practice 06/12/23 11/13/23 documented as of this encounter
[2024-06-30 19:59] LABS: Prostate Specific Antigen 4.1 ng/mL (< OR = 4.0)
== END 2024-06-30 14:14 | disposition home or self-care (01) ==
LOC: ANHGOSHLAB 14:14
PROVIDERS: PCP Nurse Practitioner; Visit Provider Nurse Practitioner
DX: Z12.5 Encounter for screening for malignant neoplasm of prostate (principal)
CPT/HCPCS: 36415; 84153; G0103